=== PATIENT | female | born 1955 | race Caucasian/White ===

== ENCOUNTER → 2021-12-06 09:18 | Outpatient (CLI) | payer MEDICARE, SELFPAY ==
--- NOTE | 2021-12-06 09:22 | DI.MRI.S_ITS ---
PROCEDURE: MR LUMBAR SPINE WO CON INDICATIONS: Spinal stenosis, lumbar region TECHNIQUE: Noncontrast sagittal T1 spin echo and T2 fast echo, sagittal STIR, and T2 fast spin echo through the lumbar spine. In cases with scoliosis, additional coronal T2 fast spin echo may be performed. COMPARISON: [facility] [place], CR, XR LUMBAR SPINE WITH OBLIQUES PLUS FLEXION EXTENSION, 11/27/2021, 14:27. FINDINGS: Image quality: Excellent. Alignment and Curvature: There is normal bony alignment. Bone Marrow: Marrow is of normal overall signal. No acute vertebral body compression fractures. Spinal Cord: Conus medullaris terminates at the L1 level. Visualized cord demonstrates normal signal and size. Paraspinous Soft Tissues: No paravertebral masses. T12-L1: Normal appearance. L1-L2: Severe disc desiccation and height loss. Vacuum disc phenomenon. Severe facet and ligamentum flavum hypertrophy. Mild canal stenosis. Moderate bilateral foraminal stenosis. L2-L3: Severe disc desiccation and height loss. Broad-based disc bulge. Mild facet ligamentum flavum hypertrophy. No canal stenosis. Mild right and moderate left foraminal narrowing. L3-L4: Patient is status post left fixation and discectomy. There is narrowing of the bilateral lateral recesses. Moderate facet sclerosis. No canal stenosis. Moderate bilateral foraminal stenosis. L4-L5: Severe disc desiccation and height loss. Severe facet and ligamentum flavum hypertrophy. Epidural lipomatosis. There is a right paracentral disc extrusion which measures 1.8 x 0.9 x 1.3 cm. There is posterior displacement of the cord and severe canal stenosis. There is severe bilateral neural foraminal stenosis with flattening of the exiting nerve roots. There is a posterior focal high-intensity zone. L5-S1: Normal appearance. IMPRESSION: 1. Large right paracentral disc extrusion as above with resultant severe canal stenosis. 2. Severe bilateral foraminal stenosis at L4-5 with flattening of the exiting nerve roots. 3. Moderate bilateral L3-4 and L1-2 foraminal stenosis and moderate left L2-3 foraminal stenosis. 4. Posterior annular fibrosis tear at L4-5 Dictated by: Kaleigh Lopez M.D. on 12/08/2021 at 9:02 Approved by: Kaleigh Lopez M.D. on 12/08/2021 at 9:09
== END ==
PROVIDERS: Referring Provider Physician Assistant Medical; Visit Provider Physician Assistant Medical
DX: M48.061 Spinal stenosis, lumbar region without neurogenic claudication (principal); M51.26 Other intervertebral disc displacement, lumbar region; M51.36 Other intervertebral disc degeneration, lumbar region
CPT/HCPCS: 72148

== ENCOUNTER → 2022-01-02 10:39 | Outpatient (CLI) | payer MEDICARE, SELFPAY ==
--- NOTE | 2022-01-02 10:40 | DI.CT.S_ITS ---
PROCEDURE: CT LUMBAR SPINE WO CON INDICATIONS: Spinal stenosis, lumbar region TECHNIQUE: Noncontrast 0.8 mm thick sections acquired from the T12 level to the sacrum. Sagittal and coronal reformats were constructed. For radiation dose reduction, the following was used: automated exposure control. COMPARISON: [facility], MR, MR LUMBAR SPINE WO CON, 12/06/2021, 9:35. [facility] [place], CR, XR LUMBAR SPINE WITH OBLIQUES PLUS FLEXION EXTENSION, 11/27/2021, 14:27. FINDINGS: Image quality: There is artifact associated with the metallic hardware. Artifact from the metallic hardware is reduced by metal reconstruction algorithm. Bones: There is minimal retrolisthesis seen at L5-S1. No acute vertebral body compression fractures. No suspicious lytic or blastic bony lesions. No pars defects. T11-T12: At least moderate loss of disc height is seen. Vacuum disc phenomenon is seen at this level. Endplate irregularity and sclerosis can be seen. Partially bridging endplate osteophytes are seen on the right side. There is moderate right-sided and no significant left-sided neural foraminal narrowing. No significant central canal narrowing is seen. T12-L1: Normal. L1-L2: At least moderate loss of disc height is seen on the right side partially bridging endplate osteophytes are seen on the right. Vacuum disc phenomenon is seen at this level. Endplate irregularity and sclerosis can be seen. There is moderate to severe right-sided and minimal left-sided neural foraminal narrowing. Mild to moderate central canal narrowing is seen. L2-L3: Moderate to severe loss of disc height is seen. Vacuum disc phenomenon is seen at this level. Endplate irregularity and sclerosis can be seen. Partially bridging endplate osteophytes are seen, which are more prominent on the left side than on the right. Moderate generalized disc bulge is seen. There is moderate right-sided and at least moderate left-sided neural foraminal narrowing. Moderate central canal narrowing is seen. L3-L4: Postoperative changes are seen at this level, with placement fusion hardware on the left side. A disc spacer is seen. No findings of hardware failure or hardware loosening are seen. Moderate generalized disc bulge is seen. There is moderate right-sided and [id number] left-sided neural foraminal narrowing. No significant central canal narrowing is seen. L4-L5: At least moderate loss of disc height is seen. Vacuum disc phenomenon is seen at this level. Endplate irregularity and sclerosis can be seen. Moderate disc bulge is seen. Extensive extruded disc material can be seen posterior to this level which is worse on the right side and is seen both superior and inferior to the disc level itself. There is severe central canal narrowing. Moderate facet joint hypertrophy is seen. Moderate to severe bilateral neural foraminal narrowing can be seen. L5-S1: No significant abnormality is seen. Soft tissues: No retroperitoneal masses or hematomas. Visualized aorta is normal in caliber. IMPRESSION: Posterior to the L4-L5 level, there is again seen prominent extruded disc material, with severe central canal narrowing. Unremarkable L3-L4 postoperative hardware. Multiple levels of degenerative change are seen, which are overall better demonstrated on the recent prior MRI. Dictated by: Rick Ferrer M.D. on 01/02/2022 at 11:56 Approved by: Rick Ferrer M.D. on 01/02/2022 at 12:03
== END ==
PROVIDERS: Referring Provider Orthopaedic Surgery Orthopaedic Surgery of the Spine; Visit Provider Orthopaedic Surgery Orthopaedic Surgery of the Spine
DX: M48.061 Spinal stenosis, lumbar region without neurogenic claudication (principal); M51.26 Other intervertebral disc displacement, lumbar region; M47.816 Spondylosis without myelopathy or radiculopathy, lumbar region
CPT/HCPCS: 72131

== ENCOUNTER → 2022-01-06 09:39 | Outpatient (CLI) | payer MEDICARE, SELFPAY ==
[2022-01-06 10:59] LABS: Add Manual Diff / Slide Review NO; Basophils Absolute Auto 0 /uL (0-100); Basophils Percent Auto 0.6 % (0-2); Eosinophils Absolute Auto 100 /uL (0-450); Hematocrit 36.4 % (36-46); Hemoglobin 12.3 g/dL (12.0-16.0); Lymphocytes Absolute Auto 1400 /uL (1100-4500); Lymphocytes Percent Auto 21.3 % (25-40); Mean Corpuscular HGB Conc 33.7 % (30-36); Mean Corpuscular Volume 91.8 fL (80-100); Monocytes Absolute Auto 700 /uL (0-900); Monocytes Percent Auto 10.5 % (3-14); Neutrophils Absolute Auto 4200 /uL (1500-7000); Neutrophils Percent Auto 65.6 % (50-75); Platelet Count 294 X10^3/uL (150-400); Red Blood Cell Count 3.97 X10^6/uL (4.0-5.2); Red Cell Distribution Width 14.7 % (11.6-14.8); White Blood Cell Count 6.4 X10^3/uL (4.5-11.0)
[2022-01-06 11:12] LABS: BUN Creatinine Ratio 9.3 (6-22); Blood Urea Nitrogen 7 mg/dL (7-17); Carbon Dioxide 27 mmol/L (22-32); Chloride 104 mmol/L (98-107); Estimated Glomerular Filt Rate > 60 mL/min (>60); Glucose 82 mg/dL (80-110); HEMOLYSIS < 15 (0-50); Potassium 3.5 mmol/L (3.4-5.1); Sodium 138 mmol/L (137-145)
[2022-01-06 11:25] LABS: Hemoglobin A1C% w Est Avg Glu 5.2 % (4.0-6.0)
== END ==
PROVIDERS: Referring Provider Orthopaedic Surgery Orthopaedic Surgery of the Spine; Visit Provider Orthopaedic Surgery Orthopaedic Surgery of the Spine
DX: Z01.818 Encounter for other preprocedural examination (principal); R73.9 Hyperglycemia, unspecified; Z01.812 Encounter for preprocedural laboratory examination
CPT/HCPCS: 36415; 80048; 83036; 85025; 93005

== ENCOUNTER → 2022-01-22 10:08 | Outpatient (CLI) | payer MEDICARE, SELFPAY ==
[2022-01-22 11:27] LABS: COVID19 -Nasal RAPID Negative (Negative)
== END ==
PROVIDERS: PCP Physician Assistant Medical; Referring Provider Orthopaedic Surgery Orthopaedic Surgery of the Spine; Visit Provider Orthopaedic Surgery Orthopaedic Surgery of the Spine
DX: Z20.822 Contact with and (suspected) exposure to COVID-19 (principal); Z01.812 Encounter for preprocedural laboratory examination
CPT/HCPCS: 87635; C9803

== ENCOUNTER 2022-01-25 18:00 | Inpatient (IN) | payer MEDICARE, SELFPAY ==
[2022-01-15 13:54] VITALS: BMI 25.6
[2022-01-25] VITALS (14 sets, daily range): BP systolic 108–144; BP diastolic 58–85; PULSE 70–93; RESP 14–97; TEMP 36.2–36.8; O2SAT 16–100; BMI 25.6
--- NOTE | 2022-01-25 12:50 | PM.PREOP ---
Pre-operative Note COVID-19 COVID-19 status: Negative Result date/Date tested (Pos, Neg/Pending): 01/24/22 Criteria for continued procedure: Expected advancement of disease process, Possibility delay results in more complex future surgery or treatment, Increased loss of function, Continuing or worsening of significant or severe pain, Deterioration of the patient's condition or overall health and Delay expected to result in less-positive ultimate med/surg outcome Interval Note History & Physical reviewed/Exam performed by Physician: Yes Changes to H&P: No
[2022-01-25] MEDS: CEFAZOLIN 2 GM/100 ML PREMIX 100 ML IV ×2 (13:15→20:38)
--- NOTE | 2022-01-25 13:45 | SUR.OPER ---
Prone on spine table, head in foam head support, padded chest and pelvic supports, gel pad at knees, lower legs supported by pillows; nipples, genitalia and toes free of pressure, arms secured on foam padded arm boards at <90 degrees abduction. Tape over blanket at thigh secured to table. Gel pad between heels.
[2022-01-25] MEDS: LACTATED RINGERS 1,000 ML 42 ML IV (14:49)
[2022-01-25] MEDS: BUPIVACAINE 0.25% (PF) 60 ML, EPINEPHrine 0.3 MG INJ (15:50)
[2022-01-25] MEDS: BUPIVACAINE LIPOSOME 266 MG/20 ML VIAL INJ (15:50)
--- NOTE | 2022-01-25 15:55 | PM.OP.1 ---
Operative Date/Time/Diagnoses Date of procedure: 01/25/22 Time of procedure: 13:00 Pre-op diagnosis: 1. L4-5 spinal stenosis with neurogenic claudication 2. History of L3-4 fusion with instrumentation Post-op diagnosis: same Procedure & Clinicians Procedure: 1. L4-5 posterolateral and posterior interbody fusion 2. L4-5 posterior interbody cage placement 3. L3-4 revision laminectomy with exploration of fusion 4. L3-4, L4-5 posterior segmental instrumentation with pedicle screw placement 5. L3-4 posterolatearl fusion 6. Colquitt of bone marrow from iliac crest through a separate incision 7. Utilization of microsurgical technique and operating microscope 8. Utilization of robotic assisted navigation Same procedure as scheduled: Yes Indications: Patient has been having chronic back pain and worsening lumbar radiculopathy. Patient failed multiple conservative management with worsening pain weakness and numbness in her lower extremity. Patient has been having difficulty performing activity of daily living. After discussing risks benefits of treatment options, patient elected proceed with surgery. Surgeon: Riri Ulrich Hydraulic Spinner: Shannen Samayoa Click Yes if Unassisted: No Anesthesia Type: General Operative Notes Closure Type: primary Specimen(s): none sent Prosthetic devices, grafts, tissues, transplants, or devices: Globus CREO MIS screws, RIse cage Applied: catheter Estimated Blood Loss (mL): 50 Blood products transfused: none Procedure in detail: Patient was seen in the preoperative area. Risks and benefits of the surgery was discussed with the patient. Informed consent was obtained from the patient and placed in the chart. Surgical site was marked. Patient was taken to the operative room. General anesthesia was administered. Prophylactic antibiotic was given to the patient less than 30 min before the incision was made. Patient was placed into a prone position on the Han table. Patient's back was then prepped and draped in the sterile fashion. Time-out was performed at this time. After patient was prepped and draped, patient's PSIS was palpated and marked bilaterally. Small 1 cm incision was made over the PSIS for placement of the reference probes. Two trocar was placed into the PSIS 1 on each side. The reference probe was attached to the trocar of the reference apparatus. At this time the C-arm imaging was used to confirm AP and lateral of L3, L4-L5 vertebrae and merged the C-arm imaging using the [employer] robotic navigation system with the CT of the lumbar spine. After successful merging was completed and confirmed, skin marker was used to basia out the skin incision using the [employer] robotic arm. Bilateral incision was made at this time. Pre templated trajectory was used and guided using the [employer] robotic navigation system for bilateral L3 L4, L5 pedicle screw placement. This was done by using the robotic arm to guide the high-speed bur to make a cortical entry point. Next a drill was placed also using the robotic arm and guided using the navigation system drilling partially through bilateral L3, L4, L5 pedicles. Next L3, L4, L5 pedicle screws it was pre templated and measured was placed onto the power clamp truck driver and inserted into the pedicles bilaterally. After all 6 screws were placed C-arm imaging was taken of both AP and lateral to confirm the placement. Excellent placement of the screws were confirmed and a matched precisely with the pre planned screw placement using the navigation system. MARs retractor was inserted using [employer] guidence. Globus MARS retractors was placed inside the incision and docked onto the L3, L4 lamina. Using microsurgical technique and operating microscope, a L3, L4 laminectomy and L3-4, L4-5 facetectomy was performed using a Kerrison rongeur. Patient was found have severe lateral recess and neural foramen stenosis which was fully decompressed after the laminectomy facetectomy. More than 75% of the facets were removed during the process of decompression rendering L4-5 level grossly unstable and required a fusion procedure at the same time. The disc space at L4-5 was identified, and a total diskectomy was performed at L4-5 level. The endplates were decorticated using a rasp and shaver. The total diskectomy and decortication was performed at L4-5 level in order to to accomplish a L4-5 fusion. The local bone from the laminectomy and facetectomy was saved for local bone grafting. After the total diskectomy and decortication was completed, Trifecta bone graft material was combined with local bone that was harvested earlier. At this time, a separate skin is incision was made over the iliac crest. A Jamshidi needle was inserted into the iliac crest through a separate skin incision. 5 cc of bone marrow aspiration was obtained through the separate skin incision using a Jamshidi needle from the iliac crest. The bone marrow aspiration was combined with local bone and the Trifecta bone grafting material. The bone grafting material was placed into the L3-4, L4-5 interbody space along with expandable cages. One cage each was inserted into the L4-5 interbody space along with bone graft material. The cage was expanded to its maximum height using the torque limiting screwdriver. The disc preparation as well as the cage insertion were also performed under navigation guidance. After the cage was placed, AP and lateral C-arm imaging was taken to confirm placement of the cage and excellent position was confirmed. During the process of performing laminectomy at L3 level, the posterior lateral fusion mass was inspected. There was significant motion indicating pseudoarthrosis at L3-4 level. Globus MARS retractor was inserted and docked onto the L3-4, L4-5 posterolateral gutter on the left side. Using the power drill, posterior-lateral decortication was performed at L3-4, L4-5 level until bleeding cortical bone was identified. The remaining bone grafting material was placed into the L3-4, L4-5 posterior lateral gutter he order to accomplish posterolateral fusion at the L3-4, L4-5 level. At this time the tulips were attached to the L3, L4-L5 pedicle screw shanks. After measuring the length of the rods, they were inserted into the tulips of the pedicle screws and locked in place using locking caps and torque limiting screwdriver bilaterally. Total 5 caps and 2 titanium rods was used in order to complete the posterior instrumentation construct. Left L4 screw was not placed her planning due to patient's previously placed hardware in the way of the trajectory for the screw. After all the hardware was placed, and confirmed with AP and lateral C-arm imaging, the wound was then irrigated with sterile normal saline and packed with Ray-Teresa gauze for 3 min to accomplish hemostasis. After the gauze was removed the deep fascia was closed with #1 Vicryl suture. The subcutaneous layer was closed with 2-0 Vicryl. The skin was closed with skin alexandra. Patient tolerated the procedure well. There were no complications. Neuro monitoring system was used to monitor patient's neurologic status throughout entire procedure. There was no disturbance of the neural monitoring signals throughout the case. Complications: none Post-operative Condition: stable Disposition: PACU Plan for aftercare: Admit to inpatient hospital
--- NOTE | 2022-01-25 16:00 | DI.RAD.S_ITS ---
PROCEDURE: XR LUMBAR SPINE 2-3V INDICATIONS: L4-5 TLIF TECHNIQUE: Fluoroscopic images were obtained during an operative procedure and submitted for interpretation following the completion of the procedure. COMPARISON: [facility], CT, CT LUMBAR SPINE WO CON, 01/02/2022, 10:50. [facility], MR, MR LUMBAR SPINE WO CON, 12/06/2021, 9:35. FINDINGS: These fluoroscopic images were performed for intraoperative localization. On these images, 3 levels of pedicle screws can be seen at the L3, L4, and L5 levels. Left-sided fixation hardware is also seen at the L3-L4 level. Disc spacers are seen at L3-L4 and L4-L5. Please correlate with intraoperative findings. IMPRESSION: Normal intraoperative examination. Dictated by: Rick Ferrer M.D. on 01/25/2022 at 15:45 Approved by: Rick Ferrer M.D. on 01/25/2022 at 15:47
[2022-01-25] MEDS: HYDROMORPHONE 2 MG INJ IV ×4 (16:15→16:31)
[2022-01-25] MEDS: ACETAMINOPHEN IV 1,000 MG/100 ML VIAL 400 MG IV (16:24)
[2022-01-25] MEDS: OXYCODONE IR 5 MG TABLET 10 MG PO (16:32)
[2022-01-25] MEDS: hydrOXYzine 50 MG/ML INJ IM (16:37)
[2022-01-25] MEDS: diazePAM 10 MG/2 ML SYRINGE 5 MG IV (17:11)
[2022-01-25] MEDS: methocarbamoL 500 MG TABLET PO (18:39)
[2022-01-25] MEDS: HYDROMORPHONE 0.5 MG INJ IV ×2 (18:39→21:56)
[2022-01-25] MEDS: SODIUM CHLORIDE 0.9% 1,000 ML 100 ML IV (18:50)
--- NOTE | 2022-01-25 19:22 | PC.NURSE ---
Admit Note Patient arrived to room 228 from PACU via bed at 1820. Alert and oriented x3, reports pain 10/10. Medicated with robaxin and Dilaudid 0.5 mg IV per emar. Pt reported need to void, declined bedpan and BSC attempted. Log rolled to side of bed but requested to go back to bed just before dropping legs to floor. Able to participate in log rolling back to bed. Dressing to back C/D/I. CMS positive to BLEs. Purewick placed for patient void, effective and pt requested removal of purewick after void which was done. SpO2 95-98% on RA. On reassess pt reports pain a little better post dilaudid and robaxin. Oriented patient to room and to call light/bed/tv controls. Bed alarm on for safety, call light within reach. Daughter is at bedside (Tereza).
[2022-01-25] MEDS: HYDROMORPHONE 1 MG INJ IV (20:33)
[2022-01-25] MEDS: hydrOXYzine pamoate 25 MG CAPSULE PO (20:41)
[2022-01-25] MEDS: SENNOSIDES 8.6 MG TABLET 17.2 MG PO (20:44)
[2022-01-25] MEDS: ATORVASTATIN 20 MG TABLET PO (20:44)
[2022-01-25] MEDS: valACYclovir 500 MG TABLET PO (20:44)
[2022-01-25] MEDS: TRAZODONE 50 MG TABLET 150 MG PO (20:44)
[2022-01-25] MEDS: DOCUSATE 100 MG CAPSULE PO (20:45)
[2022-01-25] MEDS: GABAPENTIN 400 MG CAPSULE 800 MG PO (21:57)
[2022-01-25] MEDS: ZOLPIDEM 5 MG TABLET 10 MG PO (21:58)
[2022-01-26 00:40] VITALS: BP 107/63; PULSE 82; RESP 18; TEMP 37.1; O2SAT 96
[2022-01-26] MEDS: HYDROMORPHONE 1 MG INJ IV ×3 (01:08→23:22)
[2022-01-26] MEDS: hydrOXYzine pamoate 25 MG CAPSULE PO ×2 (02:10→16:38)
[2022-01-26] MEDS: OXYCODONE IR 5 MG TABLET 10 MG PO ×3 (02:10→21:15)
--- NOTE | 2022-01-26 03:37 | PC.NURSE ---
Shift Note: At 2130H, patient complaint of lower abdominal pain, bladder distended, bladder scanned with urine output 600mls, straight cath done and put out 800mls. Patient verbalized relief. At 2330H, patient complained again of bladder distention, scanned was done with UO 600mls, notified Dr. Gan regarding patient urinary retention, ordered to place cifuentes cath. Cifuentes cath was placed, urine freely flowing to urine bag with adequate UO - 800mls, patient stated relief. Will continue to monitor.
[2022-01-26] MEDS: HYDROMORPHONE 0.5 MG INJ IV ×4 (03:59→20:14)
[2022-01-26 04:00] VITALS: BP 119/61; PULSE 74; RESP 18; TEMP 36.8; O2SAT 95
[2022-01-26] MEDS: SODIUM CHLORIDE 0.9% 1,000 ML 100 ML IV (04:05)
[2022-01-26] MEDS: PANTOPRAZOLE DR 40 MG TABLET PO (05:08)
[2022-01-26] MEDS: CEFAZOLIN 2 GM/100 ML PREMIX 100 ML IV (05:09)
--- NOTE | 2022-01-26 05:21 | PC.NURSE ---
Shift note. Care of patient from [id number]. At beginning of shift patient AAOX4, grimacing, rates back pain 10/10 throbbing and aching, current pain medications dosages not able to provide good pain management. Called Dr. Pruett, new orders to increase Dilaudid to 1mg Q1hr for pain control. Improved pain control with Dilaudid 1mg IV. Patient able to use purewick to void, unable to get OOB due to pain.
--- NOTE | 2022-01-26 07:58 | P.PN_ITS ---
Subjective Subjective Date Patient Seen: 01/26/22 Time Patient Seen: 07:58 Interval history: Patient is complaining of severe low back pain. She is tearful on exam. She has not worked with physical therapy or occupational therapy yet. She needed the Rubio catheter reinserted due to urinary retention. She has a history of fibromyalgia. Her daughter is at bedside. Exam Vital Signs (past 8 hours): - 01/26/22 00:40 01/26/22 04:00 Temperature 98.8 F 98.2 F Pulse Rate 82 74 Respiratory Rate 18 18 Blood Pressure 107/63 119/61 Pulse Oximetry 96 95 Oxygen Flow Rate 0 2 Oxygen Delivery Method Nasal Cannula Oxygen Flow Rate 2 Narrative Exam Narrative: 66-year-old female, resting in bed, mild to moderate distress due to pain. Dressing demonstrates serosanguineous drainage on the right lateral incision, no surrounding erythema or induration. Bilateral lower extremity: Motor functions are grossly intact, sensation is grossly intact to light touch, calves are soft and nontender to palpation. She cries out in pain when we try to logroll her. Objective Labs Labs: Laboratory Results - last 24 hr 01/25/22 18:17 Nasal Screen MRSA (PCR) Negative for mrsa [facility] Medical History Anxiety Colitis, nonspecific Depression Easy bruisability Fibromyalgia History of revision of total replacement of left knee joint (07/2008) History of revision of total replacement of right knee joint (~2005) HLD (hyperlipidemia) Infection of mandible (2019) Loose left total knee arthroplasty (2003) MRSA (methicillin resistant Staphylococcus aureus) PTSD (post-traumatic stress disorder) Sciatica Spinal stenosis Surgical History History of arthroplasty of right knee (~2003) History of ear surgery History of lumbar spinal fusion (05/2019) History of nasal surgery Hx of arthroscopy of right knee Hx of laminectomy (~2017) Hx of repair of right rotator cuff Social History household members: none Smoking Status: Former smoker alcohol intake: former Assessment & Plan Post-op Postoperative Procedures: Procedures Operation Date: 01/25/22 12:45 Actual Procedure Side Surgeon p L4-5 TLIF, L3-5 PSF w. instrumentation-Robot Riri Ulrich MD Postoperative day: 1 Postoperative status: marginal pain control Postoperative status narrative: -marginal pain control s/p L4-5 TLIF, L3-5 PSF with instrumentation -history of fibromyalgia -urinary retention Postoperative plan narrative: -mobilize with PT/OT. No bending, lifting, twisting x6 weeks -added Benadryl for itching -change p.o. pain medications to oral Dilaudid 2-4 mg as needed -DC home in 1-2 days Quality VTE Deep Vein Thrombosis/Pulmonary Embolism Present on Admission: No
[2022-01-26 08:26] VITALS: BP 121/58; PULSE 69; RESP 16; TEMP 36.9; O2SAT 98
[2022-01-26] MEDS: HYDROMORPHONE 4 MG TABLET PO ×3 (08:26→16:34)
[2022-01-26] MEDS: GABAPENTIN 400 MG CAPSULE PO ×2 (08:31→16:35)
[2022-01-26] MEDS: ESCITALOPRAM 10 MG TABLET 20 MG PO (08:31)
[2022-01-26] MEDS: DOCUSATE 100 MG CAPSULE PO ×2 (08:32→21:05)
[2022-01-26] MEDS: buPROPion XL 150 MG TAB PO (08:32)
[2022-01-26] MEDS: valACYclovir 500 MG TABLET PO ×2 (08:33→21:04)
[2022-01-26] MEDS: BUDESONIDE 3 MG CAP 9 MG PO (08:33)
[2022-01-26] MEDS: diphenhydrAMINE 25 MG TABLET PO (08:39)
--- NOTE | 2022-01-26 11:30 | PT.IIE ---
Current Diagnoses Spinal stenosis, lumbar region with neurogenic claudication (01/25/22) Arthrodesis status (01/25/22) Surgery Performed Operation Date: 01/25/22 12:45 Actual Procedures p L4-5 TLIF, L3-5 PSF w. instrumentation-Robot - Riri Ulrich MD Surgical History (Last Reviewed 01/26/22 @ 08:00 by Emilia Wilson PA-C) History of arthroplasty of right knee (~2003) History of ear surgery History of lumbar spinal fusion (05/2019) History of nasal surgery Hx of arthroscopy of right knee Hx of laminectomy (~2017) Hx of repair of right rotator cuff Medical History (Last Reviewed 01/26/22 @ 08:00 by Emilia Wilson PA-C) Anxiety Colitis, nonspecific Depression Easy bruisability Fibromyalgia History of revision of total replacement of left knee joint (07/2008) History of revision of total replacement of right knee joint (~2005) HLD (hyperlipidemia) Infection of mandible (2019) Loose left total knee arthroplasty (2003) MRSA (methicillin resistant Staphylococcus aureus) PTSD (post-traumatic stress disorder) Sciatica Spinal stenosis Physical Therapy Inpatient Evaluation/Re-Eval M1 PT/OT-IP Prior Functional Status Start: 01/26/22 12:52 Freq: NEEDED Status: Active Protocol: Document 01/26/22 11:30 AB (Rec: 01/26/22 13:04 [email or web address]) Medical Review Prior Functional Status Medical History Reviewed Yes Communication able to make needs known Mobility and Gait pt stated that she is independent with all mobilities and ambulation without AD Social History Household Members none Living Arrangements Apartment/Condo Number of Floors (Floors) One Floor Number of Stairs To Enter/Railing? 3 steps with L rail + 1 platform step to enter the house Home Environment Standard Height Toilet,Tub/ Shower Doors Home Equipment Front Wheel Walker Additional Social History Comment pt plans to go to her daughter 's house for ~ 1 wk and daughter will assist pt; above home set up is regarding pt's daughter's house M2 PT-IP Current Condition Start: 01/26/22 12:52 Freq: NEEDED Status: Active Protocol: Document 01/26/22 11:30 AB (Rec: 01/26/22 13:04 [email or web address]) Physical Therapy Current Condition Current Condition Evaluation Date 01/26/22 Treatment Diagnosis s/p L4-5 fusion; difficulty in walking Onset Date 01/25/22 M3 PT-IP Subjective Start: 01/26/22 12:52 Freq: NEEDED Status: Active Protocol: Document 01/26/22 11:30 AB (Rec: 01/26/22 13:04 AB [email or web address]) Subjective Physical Therapy Visit Type Type Initial Evaluation Visit Start Time 11:30 Visit Stop Time 12:18 Total Visit Minutes 48 Number of SPEEDER WORKER Visits 0 Physical Therapy Visit Comments Patient Comments needs motivation to participat M4 PT-IP Mobility and Gait Start: 01/26/22 12:52 Freq: NEEDED Status: Active Protocol: Document 01/26/22 11:30 AB (Rec: 01/26/22 13:04 AB [email or web address]) PT-Bed Mobility Assessment Rolling Type of Rolling Log Rolling Level of Assist Maximal Assistance Sit to Supine Sit to Supine Maximum Assistance,2 Person Assistance,Head of Bed Elevated,Bedrails Scooting Scooting to Edge of Bed Dependent PT-Transfer Assessment Sit to and From Stand Sit to and from Stand Maximum Assistance,1 Person Assistance,2 Person Assistance ,Use of Upper Extremities Equipment Transfer Assistive Device Gait Belt,Platform Walker Orthotic/Prosthetic Devices or Brace: No Transfers Transfer Destination Bed Transfer Technique Stand Step Pivot Transfer Ability Level of Assist Standby Assistance,1 Person Assistance,Use of Upper Extremities Comments Mobility Comments reviewed back precautions with pt and pt requires cues. pt completed sit to stand from chair max x 2 and max cues x 3 attempts. ambulated ~ 2 ft using FWW max A x 1-2 and max cues and pt wants to go back bed. educated pt on importance to sitting up but still wants to go back to bed. took steps to get to bed using fWW max A and cues. completed bed mobility sit to supine max A x 2 and max cues. positioned pt in bed. call light and table placed within reach. Gait Assessment Gait Able to Maintain Weight Bearing Status Yes During Gait Assistive Devices Assistive Device Gait Belt,Front Wheeled Walker Orthotic/Prosthetic Devices or Brace: No Gait Deviations General Gait Pattern Antalgic,Decreased Stride Length,Decreased Feet Clearance Factors Limiting Gait Function Factors Limiting Gait Function Decreased Activity Tolerance, Decreased Strength,Difficulty Following Directions,Limited Range of Motion,Pain,Poor Balance,Poor Safety Awareness Comments Gait Comments able to take steps during transfers using FWW PT-Balance Assessment Sitting Balance and Reactions Static Sitting Balance Ability Good Dynamic Sitting Balance Ability Fair Standing Balance and Reactions Static Standing Balance Ability Poor Dynamic Standing Balance Ability Poor Device Used FWW M5 PT-IP Objective Assessments Start: 01/26/22 12:52 Freq: NEEDED Status: Active Protocol: Document 01/26/22 11:30 AB (Rec: 01/26/22 13:04 AB [email or web address]) Orientation Orientation/Cognition Level of Alertness Alert Orientation Name Safety Awareness Decreased Safety Awareness Memory Description Short Term Impaired,Snf Impaired Gross Range of Motion Lower Extremity ROM Assessment Within Functional Limits Strength Lower Extremity Strength Assessment Bilaterally Impaired Comments Strength Comments RLE: 3-/5 LLE: 3+/5 Coordination Assessment Gross Coordination Gross Coordination WNL Sensation Assessment Sensation Gross Sensation WNL Muscle Tone Muscle Tone WNL Yes M6 PT-IP Treatment Start: 01/26/22 12:52 Freq: NEEDED Status: Active Protocol: Document 01/26/22 11:30 AB (Rec: 01/26/22 13:04 AB [email or web address]) Physical Therapy Treatment Education Education Provided Precautions,Weight Bearing Status,Post-Op Packet,Safety M7 PT-IP Assessment and Plan Start: 01/26/22 12:52 Freq: NEEDED Status: Active Protocol: Document 01/26/22 11:30 AB (Rec: 01/26/22 13:04 AB [email or web address]) PT Summary Assessment and Plan Potential Rehabilitation Potential Good Status of Condition at Evaluation Evolving Summary Impairments Pain,ROM,Strength,Balance, Coordination,Sensation,Tone, Cognition,Bed Mobility, Transfers,Gait,Activity Tolerance Assessment Summary pt requiring max A x 2 and max cue with mobility using fWWand with c/o increase LBP affecting mobility. At this time, pt will require SNF rehab to improve strength and mobiltiy. Goals Bed Mobility Goal Minimal Assistance Transfer Goal Minimal Assistance,Front Wheeled Walker Gait Goal Minimal Assistance,Front Wheel Walker Gait Distance 50 Other Goals improve bed mobility, transfers and ambultion using fWW 30 ft SBA up/down 3 steps L rail ascending + 1 platform step using FWW SBA Days to Meet Goals 10 Frequency of Treatment Frequency Of Treatment Twice a Day Treatment Plan Physical Therapy Treatment Plan Bed Mobility Training,Transfer Training,Gait Training, Therapeutic Exercise,Balance Retraining,Post Op Education, Discharge Planning,Hot or Cold Pack,Neuromuscular Re-ed, Coordination Retraining,Manual Therapy Precautions Lumbar Precautions Log Roll,No Twisting,Limit Bending,Lifting Restriction of 10 lbs,Gait Belt above Incisional Area Recommendations To Nursing Amount of Assist Needed 2 Person Assist Discharge Recommendations PT Discharge Recommendations SNF Rehab Transportation Needs at Discharge Wheelchair/Cabulance
--- NOTE | 2022-01-26 11:45 | OT.IP.EVAL ---
Current Diagnoses Spinal stenosis, lumbar region with neurogenic claudication (01/25/22) Arthrodesis status (01/25/22) Surgery Performed Operation Date: 01/25/22 12:45 Actual Procedures p L4-5 TLIF, L3-5 PSF w. instrumentation-Vikki - Riri Ulrich MD Past Medical History (Last Reviewed 01/26/22 @ 08:00 by Emilia Wilson PA-C) Anxiety Colitis, nonspecific Depression Easy bruisability Fibromyalgia History of revision of total replacement of left knee joint (07/2008) History of revision of total replacement of right knee joint (~2005) HLD (hyperlipidemia) Infection of mandible (2019) Loose left total knee arthroplasty (2003) MRSA (methicillin resistant Staphylococcus aureus) PTSD (post-traumatic stress disorder) Sciatica Spinal stenosis Surgical History (Last Reviewed 01/26/22 @ 08:00 by Emilia Wilson PA-C) History of arthroplasty of right knee (~2003) History of ear surgery History of lumbar spinal fusion (05/2019) History of nasal surgery Hx of arthroscopy of right knee Hx of laminectomy (~2017) Hx of repair of right rotator cuff Occupational Therapy Inpatient Evaluation/Re-Eval M1 PT/OT-IP Prior Functional Status Start: 01/26/22 12:52 Freq: NEEDED Status: Active Protocol: Document 01/26/22 11:30 AB (Rec: 01/26/22 13:04 AB [id number]) Medical Review Prior Functional Status Medical History Reviewed Yes Communication able to make needs known Mobility and Gait pt stated that she is independent with all mobilities and ambulation without AD Social History Household Members none Living Arrangements Apartment/Condo Number of Floors (Floors) One Floor Number of Stairs To Enter/Railing? 3 steps with L rail + 1 platform step to enter the house Home Environment Standard Height Toilet,Tub/ Shower Doors Home Equipment Front Wheel Walker Additional Social History Comment pt plans to go to her daughter 's house for ~ 1 wk and daughter will assist pt above home set up is regarding pt's daughter's house M2 OT-IP Current Condition Start: 01/26/22 13:34 Freq: Status: Active Protocol: Document 01/26/22 10:40 [facility] (Rec: 01/26/22 13:58 [facility] [id number]) Occupational Therapy Current Condition Current Condition Evaluation Date 01/26/22 Treatment Diagnosis S/p L4-5 TLIF L3-5 PSF Diagnosis Onset Date 01/25/22 Post Operative Precautions Lumbar Precautions Log Roll,No Twisting,Limit Bending,Lifting Restriction of 10 lbs,Gait Belt above Incisional Area M3 OT- IP Subjective and Pain Start: 01/26/22 13:34 Freq: Status: Active Protocol: Document 01/26/22 10:40 [facility] (Rec: 01/26/22 13:58 [facility] [id number]) OT- Subjective Occupational Therapy Visit Type Type Initial Evaluation Visit Start Time 10:40 Visit Stop Time 11:45 Total Visit Minutes 65 Occupational Therapy Visit Comments Patient Comments Pt needing encouragement and agreed to get up. Pt's daughter in the room for OT eval. Patient/Caregiver Goals To go home. OT Pain Assessment Pain When Pain Assessed At Rest Pain Present Pain Present Pain Reported Location Lower Back Intensity 7 Scale Used Numeric (0 - 10) M4 OT- IP ADL's Start: 01/26/22 13:34 Freq: Status: Active Protocol: Document 01/26/22 10:40 [facility] (Rec: 01/26/22 13:58 [facility] [id number]) OT ADL-Grooming General Evaluation Grooming Ability Independent Areas Needing Assistance Retrieving/Set-up of Grooming Items OT ADL-Oral Care General Eval Oral Care Ability Independent Areas of Assistance Retrieving/Set-Up of Items Comments Oral Care Comments While seated. Educated when able to stand at the sink, best to spit into a cup or hinge at her hips to spit into the sink in order to best follow her back precautions. OT ADL-Dressing General Eval Lower Body Dressing Ability Maximum Assistance Areas Needing Assistance Socks Comments OT Dressing Comments Able to go over LB dressing equipment of university tutor and sock aid to increased ease for dressing needs. OT ADL-Toileting General Evaluation Toileting Ability Total Assistance Comments OT Toileting Comments Rubio in place. Educated use of pad/brief at night , wet ones, and possibly toilet paper aid to increase ease for her hygiene needs. OT ADL-Bathing Comments OT Bathing Comments SPonge bath more appropriate at this time. Pt will also benefit from a shower chair versus tub bench at home. M5 OT- IP IADL's Start: 01/26/22 13:34 Freq: Status: Active Protocol: Document 01/26/22 10:40 [facility] (Rec: 01/26/22 13:58 [facility] [id number]) OT-Instrumental Activities of Daily Living Home Safety Awareness Awareness of Need for Assistance at Home Good Awareness Home Safety Comments Pt a little anxious and needing cues to follow, increased time to process information and follow commands. At this time pt would benefit form assist with all needs. Medication Management Medication Management Comments Prior pt able to do . Money Management Money Management Comments Prior pt had no issues. Meal Preparation Meal Preparation Comments Pt will need assist. Manager Exchange Manager Exchange Comments Pt will need assist. M6 OT- IP Functional Cognition Start: 01/26/22 13:34 Freq: Status: Active Protocol: Document 01/26/22 10:40 [facility] (Rec: 01/26/22 13:58 [facility] [id number]) Cognitive Factors Limiting Selfcare Function Cognitive Ability Level of Alertness Alert Patient Orientation Name,Place,Situation Attention Span Ability Capable of Focused Attention, Capable of Sustained Attention Ability to Follow Commands Able to Follow One Step Commands with Increased Time, Able to Follow One Step Commands with Repetition Safety Awareness Decreased Recall of Precautions Cognitive Comments Cognitive Assessment Comments Pt a little anxious and needing cues to take her time, breath, and needing step by step simple steps to follow and reassurance that she is okay. OT- Vision and Hearing OT- Hearing Assessment OT- Hearing Assessment WFL OT- Vision Assessment Visual Acuity Glasses All The Time M7 OT- IP Mobility and Balance Start: 01/26/22 13:34 Freq: Status: Active Protocol: Document 01/26/22 10:40 [facility] (Rec: 01/26/22 13:58 [facility] [id number]) OT- Bed Mobility Assessment Rolling Type of Rolling Roll to Left Level of Assistance Maximum Assistance,1 Person Assistance,Bedrails Supine to Sit Supine to Sit Assist Moderate Assistance,Maximum Assistance,1 Person Assistance Scooting Scooting to Edge of Bed Moderate Assistance,1 Person Assistance OT-Transfer Assessment Sit to and From Stand Sit to and from Stand Maximum Assistance,1 Person Assistance Transfers Transfer Ability Moderate Assistance,1 Person Assistance Technique Transfer Destination Bed,Chair Transfer Technique Stand Step Pivot Devices Transfer Assistive Devices Gait Belt,Front Wheeled Walker Comments Mobility Comments BP 115/68 supine, 116/69 while seated. Pt initially assist with green pad to roll and then pt able to roll with use of bedrail with increased time and sidelying to supine MOD/ MAXA with slow pace as pt just wanting to more slowly. MODA to help scoot each hip to the edge of the bed. MAX AX 1 to stand to FWW and able to transfer with MODA x1 to guide pt and help steady her balance for the transfer to the recliner. At this time due to pt's anxiously, best to have 2 person assist for pt's reassurance. OT- Balance Assessment Sitting Balance and Reactions Static Sitting Balance Ability Good Dynamic Sitting Balance Ability Fair Standing Balance and Reactions Static Standing Balance Ability Poor Dynamic Standing Balance Ability Poor M8 OT- IP Objective Assessments Start: 01/26/22 13:34 Freq: Status: Active Protocol: Document 01/26/22 10:40 [facility] (Rec: 01/26/22 13:58 [facility] [id number]) OT-Muscle Tone Assessment Muscle Tone WNL Yes M9 OT- IP Assessment and Plan Start: 01/26/22 13:34 Freq: Status: Active Protocol: Document 01/26/22 10:40 [facility] (Rec: 01/26/22 13:58 [facility] [id number]) OT Summary Assessment and Plan Potential Rehabilitation Potential Good Analytic Complexity at Evaluation Moderate Summary OT Impairments Pain,Balance,Functional Cognition,Functional Mobility, Self-Feeding,Grooming,Dressing ,Toileting,Bathing,Toilet Transfers,Shower Transfers, Activity Tolerance Progress Towards Goals Slow Progress due to Pain,Slow Progress due to Medical Issues,Slow Progress due to Activity Tolerance,Slow Progress due to Cognition Assessment Summary Pt MOD complexity and main barriers are steps, pain, now needing extensive assist for all ADl and mobility needs. pt needing lots of reassurance and concrete simple cue to follow. Pt looking to possibly go home to her daughter's house pending caregiver training and progress, however at this time would be best to go to skilled rehab. Goals Grooming Goal Independent Dressing Goal Independent Toileting Goal Independent Bathing Goal Independent Toilet Transfer Goal Independent Shower Transfer Goal Independent Patient/Caregiver Education Goal Demonstrate Post-Op Precautions,Caregiver Independent Assisting Patient Days to Meet Goals 15 Frequency of Treatment Frequency Of Treatment Once a Day Treatment Plan OT Treatment Plan ADL Training,Functional Cognition Training,Functional Mobility,Patient/Family Education,Discharge Planning Other Treatment Recommendations and Next Transfer [place] [facility] [place] 1 Treatment Focus with FWW, caregiver training if appropriate Discharge Recommendations OT Discharge Recommendations SNF Rehab,Home vs SNF Other Discharge Recommendations pending progress, caregiver training, and pain control possibly home with 24/7 assist and home health, however current suggest SNF Transportation Needs at Discharge Wheelchair/Cabulance
--- NOTE | 2022-01-26 12:08 | CM.DANOTE ---
Addendum entered by Susan Sandhu R.N. 01/26/22 15:56: Checked back in with patient and daughter. She is hopeful for home with home health. She will work more with therapy tomorrow. They do have the list of care home facilities for back up as well, but no choices were made. Addendum entered by Susan Sandhu R.N. 01/26/22 13:02: Met with patient, daughter, Tereza, was in the room. O.T. indicated, may need skilled as a back up plan. Brought in Ipad with reviews from facilities. Gave Medicare Choice List, and put star ratings next to the facilities for patient and daughter to review. She hopes to be able to go home with home health, but will also look at skilled facilities for back up plans. Encouraged her and daughter to discuss and pick three facilities. Original Note: DCP: Case received, EMR reviewed and met with patient. Introduced self and role. Was able to obtain information regarding patient's baseline activity status prior to her surgery, as well as her current living situation. DCP assessment completed with information currently available. Patient is a 66 year old female who admitted yesterday morning to the care of the orthopedic team. PCP: Dr. Lemus (in [facility]). Payer: confirmed: Medicare. Patient came to the hospital via private vehicle secondary to having a surgical procedure. Patient had L4-5 posterolateral and oil boiler interbody fusion. Patient has history of spinal stenosis. Patient also has history of fibromyalgia, and she has a cifuentes secondary to having some urinary retention. Met briefly with patient in her room. She was laying on her back, having some discomfort. She stated, she did not know that this could be that painful. Confirmed with patient that she resides alone in [place]. She indicated, she would be temporarily staying with her daughter, as she has 3 flights of stairs to get to her apartment. At her baseline, she drives, and does not use any DME supplies. She is from [facility], has been here for about a year, her primary care physician is in [facility]. P: DCP to follow closely. She has not yet worked with therapy, and has been in pain. Will see how she does. Should she need care home, could be an option, and can go over Medicare Choice List, and she would need to be here for three midnights. Susan Sandhu RN/Shopper Marketing Manager Discharge Planning/Care Management CM Discharge Assessment Start: 01/26/22 12:05 Freq: Status: Active Protocol: Document 01/26/22 12:05 (Rec: 01/26/22 12:07 [id number]) Discharge Planning Assessment Assigned Supervisor Pleating Susan Sandhu RN/Shopper Marketing Manager Advance Directives? No History Provided By Patient,Medical Record Prior Living Arrangements Apartment/Condo Household Members none Type of transporation used prior to Drives own vehicle admit Independent with ADL's Yes Is patient alert and oriented? Yes Caregiver for Another No Comment Will see how patient does with P.T. Discharge Plan Home Whiteboard Updated in Patient Room with Yes name and ext. # of Supervisor Pleating Review Status In Process Next Review Type Continued Stay Review Pre-Anesthesia Assessment Start: 01/15/22 13:54 Freq: Status: Complete Protocol: Document 01/15/22 13:54 CAB (Rec: 01/15/22 15:04 [facility] [id number]) Pre-Anesthesia Assessment Preferred Name Emily Patient Information Reviewed Via Phone Assessment Assessment Completed With Patient Diagnostic Results BMP/CMP,CBC,EKG Comment Labs/ECG @ [facility] 01/06/22, COVID screen @ 01/22/22 Primary Care Provider Rosana Seen Specialist in Last 12 Months Yes Specialist Seen Orthopedist Primary Language Estonian Millinery Copyist Required No Height 5 ft 5 in Weight 154 lb Body Mass Index (BMI) 25.6 Hearing Ability Normal Visual Assist Glasses Dentition Type Teeth, Natural Present,Teeth, Missing Barriers to Learning None Other Aids Yes: Permanent lower teeth retainer Hx Anesthesia Reactions No Hx Family Anesthesia Reaction No Hx Malignant Hyperthermia No Hx Blood Transfusions Yes: x 2 during multiple knee surgeries Hx Blood Transfusion Reaction No Anesthesia Review Requested No alcohol intake current Alcohol Intake Frequency Other: Currently not in a month r/t pain Smoking Status Former smoker how long ago did patient quit smoking Quit approx 1 year ago Substance Use Type marijuana Comment CBD oil, advised not to smioke marijuana 24 hours prior Pain Present Pain Reported Musculoskeletal Symptoms Abnormal Gait,Back Pain, Difficulty Walking,Limited Range of Motion,Numbness, Radiating Pain into Limb, Tingling History of Falling (Recent or History of Yes ) Patient is completely paralyzed or No completely immobile Mental Status Oriented to own ability Is patient on oxygen? No Does patient have ESPINOZA/SOB No Hx Sleep Apnea No Currently Taking a Beta Sherrie No Can You Climb a Flight of Stairs Without No SOB Hx Chest Pain No Hx SOB No Hx Syncope or Dizziness No Anti-Coagulant Therapy No Has a Sporting Goods Sales Manager No Cardiac Testing No Hx Pacemaker/ICD No Pacemaker Rep Required? No Cardiac Clearance Received Not Applicable Diet Type At Home Regular dysphagia No Gastrointestinal Symptoms Reflux Urinary Catheter Present No Hx Urinary Self Catheterization No Diabetes No Patient No Lactating No Hx Drug Resistant Organism Yes: MRSA '09 Presence of External or Internal Medical Yes: Knee, right shoulder, Devices lumbar, lower teeth permanent retainer Have you had any close contact with No someone diagnosed with COVID-19? Received a COVID vaccine? Yes Received all doses? Yes Marital Status Single Lives With none Prior Living Arrangements Apartment/Condo Number of Stairs To Enter/Railing? Lives on 3rd floor apartment Support System Child/Children Does the Patient Have Assistance After Yes: Daughter will assist with Surgery care at [place] Patient Discharge Plan Description Other Comment Pt plans to go to daughter's home at [place] Additional comment Pt advised 1-2 night length of stay per surgeon Feels Safe in Current Environment Yes Been Physically Hurt or Threatened By a No Person in Current Environment Do you have thoughts of harming yourself None or others? Are you currently considering suicide? No Do you have a plan to hurt yourself or No Plan others? Do You Have Any Spiritual Beliefs That No May Affect Your HC Choices? Do You Have Any Cultural Practices That No May Affect Your HC Choices? Comment Worship Who Can We Speak to About Patient's Care Family, friends Identifying Code for Release of Patient Declines to issue Information Health Care Proxy/Next of Kin Tereza (daughter) Health Care Proxy Emergency Contact Name Tereza (daughter) Emergency Contact Advance Directives? No Power of Certified Adaptive Physical Educator No PAC Instructions Durable medical equipment, Medications to take/avoid, Nasal antibiotic,No ETOH/ petroleum product on skin DOS, NPO,Post-op transportation,Pre -surgical wash,Sensory aids, Sturdy shoes/comfortable clothes,Do not bring valuables and remove jewelry
[2022-01-26 12:34] VITALS: BP 118/62; PULSE 71; RESP 18; TEMP 37.1; O2SAT 97
--- NOTE | 2022-01-26 13:43 | CM.DPNOTE ---
Faxed referral to [facility], [facility] & Lashawn Huddleston. Ivy Mendoza CM assist.
[2022-01-26 15:41] VITALS: BP 118/64; PULSE 71; RESP 16; TEMP 37; O2SAT 96
--- NOTE | 2022-01-26 15:48 | PT.IPTN ---
Current Diagnoses Spinal stenosis, lumbar region with neurogenic claudication (01/25/22) Arthrodesis status (01/25/22) Surgery Performed Operation Date: 01/25/22 12:45 Actual Procedures p L4-5 TLIF, L3-5 PSF w. instrumentation-Robot - Riri Ulrich MD Physical Therapy Treatment Note M2 PT-IP Current Condition Start: 01/26/22 12:52 Freq: NEEDED Status: Active Protocol: Document 01/26/22 11:30 AB (Rec: 01/26/22 13:04 AB [id number]) Physical Therapy Current Condition Current Condition Evaluation Date 01/26/22 Treatment Diagnosis s/p L4-5 fusion; difficulty in walking Onset Date 01/25/22 M3 PT-IP Subjective Start: 01/26/22 12:52 Freq: NEEDED Status: Active Protocol: Document 01/26/22 15:30 LJ (Rec: 01/26/22 15:48 LJ [id number]) Subjective Physical Therapy Visit Type Type Treatment Note Visit Start Time 03:00 Visit Stop Time 03:24 Total Visit Minutes 24 Notes dtr in room Number of WHEEL INSTALLER Visits 1 Physical Therapy Visit Comments Patient Comments needs motivation to participat M4 PT-IP Mobility and Gait Start: 01/26/22 12:52 Freq: NEEDED Status: Active Protocol: Document 01/26/22 15:30 LJ (Rec: 01/26/22 15:48 LJ [id number]) PT-Bed Mobility Assessment Rolling Type of Rolling Log Rolling,Roll to Left Level of Assist Moderate Assistance,1 Person Assistance Supine to Sit Supine to Sit Moderate Assistance,1 Person Assistance Sit to Supine Sit to Supine Moderate Assistance,1 Person Assistance,Bedrails Scooting Scooting to Edge of Bed Moderate Assistance PT-Transfer Assessment Comments Mobility Comments reviewed precautions and discussed importance of abdominal bracing and breathing prior to movement. Pt completed a logroll with ModA and encouragement to breathe, brace, and move fluidly. Pt sat on the side of the bed for several mnutes talking about granddaughter then requested to lay down. She did some deep breaths and readied herself to begin the movement to get onto her side . She needed ModA to transition from sitting to getting onto her elbow prior to lifting her legs onto the bed. ModA with LEs to lift onto bed and position comfortably. Used sheet x2 to shift hips into position. Pt was left with all needs within reach and dtr in room. Gait Assessment Comments Gait Comments pt refused to attempt gait or standing beside the bed. M5 PT-IP Objective Assessments Start: 01/26/22 12:52 Freq: NEEDED Status: Active Protocol: Document 01/26/22 11:30 AB (Rec: 01/26/22 13:04 AB [id number]) Orientation Orientation/Cognition Level of Alertness Alert Orientation Name Safety Awareness Decreased Safety Awareness Memory Description Short Term Impaired,Skilled Nursing Impaired Gross Range of Motion Lower Extremity ROM Assessment Within Functional Limits Strength Lower Extremity Strength Assessment Bilaterally Impaired Comments Strength Comments RLE: 3-/5 LLE: 3+/5 Coordination Assessment Gross Coordination Gross Coordination WNL Sensation Assessment Sensation Gross Sensation WNL Muscle Tone Muscle Tone WNL Yes M6 PT-IP Treatment Start: 01/26/22 12:52 Freq: NEEDED Status: Active Protocol: Document 01/26/22 15:30 LJ (Rec: 01/26/22 15:48 LJ [id number]) Physical Therapy Treatment Education Education Provided Precautions,Weight Bearing Status,Post-Op Packet,Safety M7 PT-IP Assessment and Plan Start: 01/26/22 12:52 Freq: NEEDED Status: Active Protocol: Document 01/26/22 15:30 LJ (Rec: 01/26/22 15:48 LJ [id number]) PT Summary Assessment and Plan Potential Rehabilitation Potential Good Status of Condition at Evaluation Evolving Summary Impairments Pain,ROM,Strength,Balance, Coordination,Sensation,Tone, Cognition,Bed Mobility, Transfers,Gait,Activity Tolerance Assessment Summary Pt required ModA x1 with lots of encouragement and reminders to breathe and brace for movement. Her form with logroll ws very good and she was able to accomplish it with less assistance. For next treatment allow her to do as much as she can on her own with 1 person assist but have 2nd person standby for transfers and ambulation. Pt is highly motivated to avoid going to SNF however, at this point she will need it to improve strength and mobility. Goals Bed Mobility Goal Minimal Assistance Transfer Goal Minimal Assistance,Front Wheeled Walker Gait Goal Minimal Assistance,Front Wheel Walker Gait Distance 50 Other Goals improve bed mobility, transfers and ambultion using fWW 30 ft SBA up/down 3 steps L rail ascending + 1 platform step using FWW SBA Days to Meet Goals 10 Frequency of Treatment Frequency Of Treatment Twice a Day Treatment Plan Physical Therapy Treatment Plan Bed Mobility Training,Transfer Training,Gait Training, Therapeutic Exercise,Balance Retraining,Post Op Education, Discharge Planning,Hot or Cold Pack,Neuromuscular Re-ed, Coordination Retraining,Manual Therapy Precautions Lumbar Precautions Log Roll,No Twisting,Limit Bending,Lifting Restriction of 10 lbs,Gait Belt above Incisional Area Recommendations To Nursing Amount of Assist Needed 2 Person Assist Discharge Recommendations PT Discharge Recommendations SNF Rehab Transportation Needs at Discharge Wheelchair/Cabulance
[2022-01-26 19:35] VITALS: BP 110/60; PULSE 75; RESP 18; TEMP 37.1; O2SAT 96
[2022-01-26] MEDS: ZOLPIDEM 5 MG TABLET 10 MG PO (21:02)
[2022-01-26] MEDS: SENNOSIDES 8.6 MG TABLET 17.2 MG PO (21:03)
[2022-01-26] MEDS: TRAZODONE 50 MG TABLET 150 MG PO (21:04)
[2022-01-26] MEDS: ATORVASTATIN 20 MG TABLET PO (21:05)
[2022-01-26] MEDS: GABAPENTIN 400 MG CAPSULE 800 MG PO (21:05)
[2022-01-26] MEDS: methocarbamoL 500 MG TABLET PO (21:13)
[2022-01-27 01:17] VITALS: BP 104/56; PULSE 88; RESP 18; TEMP 37.4; O2SAT 92
[2022-01-27] MEDS: HYDROMORPHONE 4 MG TABLET PO ×2 (01:55→08:08)
[2022-01-27] MEDS: hydrOXYzine pamoate 25 MG CAPSULE PO ×4 (01:56→21:51)
[2022-01-27] MEDS: HYDROMORPHONE 0.5 MG INJ IV (04:33)
[2022-01-27 05:14] VITALS: BP 105/58; PULSE 84; RESP 18; TEMP 37.1; O2SAT 93
[2022-01-27] MEDS: PANTOPRAZOLE DR 40 MG TABLET PO (06:06)
[2022-01-27] MEDS: HYDROMORPHONE 1 MG INJ IV (06:06)
--- NOTE | 2022-01-27 07:25 | PM.PNPO.1 ---
Subjective Subjective Date Patient Seen: 01/27/22 Time Patient Seen: 07:25 Interval history: C/o severe back pain, not much progress w/ PT, will need SNF at discharge. This process has been started by CM. She is ordered a variety of pain medication, including both IV and PO hydromorphone in varying amounts PRN; hydroxyzine PRN; methocarbamo 500 q HS; oxycodone 10 mg PRN; and gabapentin 400/400/800. Exam Vital Signs (past 8 hours): - 01/27/22 01:17 01/27/22 05:14 Temperature 99.3 F 98.8 F Pulse Rate 88 84 Respiratory Rate 18 18 Blood Pressure 104/56 L 105/58 L Pulse Oximetry 92 93 Oxygen Flow Rate 0 0 Oxygen Delivery Method Room Air Oxygen Flow Rate 0 Narrative Exam Narrative: 5/5 strength in hip flexors, quadriceps, hamstrings, DF, PF, EHL bilaterally. Sensation to light touch intact in BLE. Calves soft, compressible, nontender and without palpable cords or masses. Pt unable to log roll in order for me to assess dressing, and she cries out in pain when I try to assist her. [facility] Medical History Anxiety Colitis, nonspecific Depression Easy bruisability Fibromyalgia History of revision of total replacement of left knee joint (07/2008) History of revision of total replacement of right knee joint (~2005) HLD (hyperlipidemia) Infection of mandible (2019) Loose left total knee arthroplasty (2003) MRSA (methicillin resistant Staphylococcus aureus) PTSD (post-traumatic stress disorder) Sciatica Spinal stenosis Surgical History History of arthroplasty of right knee (~2003) History of ear surgery History of lumbar spinal fusion (05/2019) History of nasal surgery Hx of arthroscopy of right knee Hx of laminectomy (~2017) Hx of repair of right rotator cuff Social History household members: none Smoking Status: Former smoker alcohol intake: former Assessment & Plan Post-op Assessment and plan (1) S/P lumbar fusion: Assessment and Plan narrative: D/C cifuentes. Continue PT. Plan to d/c to SNF tomorrow. Will discontinue some hydromorphone orders as well as hydroxyzine and increase methocarbamol in an attempt to optimize and streamline pain control. Postoperative Procedures: Procedures Operation Date: 01/25/22 12:45 Actual Procedure Side Surgeon p L4-5 TLIF, L3-5 PSF w. instrumentation-Robot Riri Ulrich MD Postoperative day: 2 Quality VTE Deep Vein Thrombosis/Pulmonary Embolism Present on Admission: No
[2022-01-27 08:05] VITALS: BP 106/65; PULSE 84; RESP 17; TEMP 37.2; O2SAT 93
[2022-01-27] MEDS: ESCITALOPRAM 10 MG TABLET 20 MG PO (08:07)
[2022-01-27] MEDS: buPROPion XL 150 MG TAB PO (08:08)
[2022-01-27] MEDS: GABAPENTIN 400 MG CAPSULE PO ×2 (08:08→16:23)
[2022-01-27] MEDS: DOCUSATE 100 MG CAPSULE PO ×2 (08:08→21:11)
[2022-01-27] MEDS: valACYclovir 500 MG TABLET PO ×2 (08:51→21:11)
[2022-01-27] MEDS: BUDESONIDE 3 MG CAP 9 MG PO (08:51)
--- NOTE | 2022-01-27 10:35 | PT.IPTN ---
Current Diagnoses Spinal stenosis, lumbar region with neurogenic claudication (01/25/22) Arthrodesis status (01/25/22) Surgery Performed Operation Date: 01/25/22 12:45 Actual Procedures p L4-5 TLIF, L3-5 PSF w. instrumentation-Robot - Riri Ulrich MD Physical Therapy Treatment Note M2 PT-IP Current Condition Start: 01/26/22 12:52 Freq: NEEDED Status: Active Protocol: Document 01/26/22 11:30 AB (Rec: 01/26/22 13:04 AB [email or web address]) Physical Therapy Current Condition Current Condition Evaluation Date 01/26/22 Treatment Diagnosis s/p L4-5 fusion; difficulty in walking Onset Date 01/25/22 M3 PT-IP Subjective Start: 01/26/22 12:52 Freq: NEEDED Status: Active Protocol: Document 01/27/22 09:57 KS (Rec: 01/27/22 11:50 KS [id number]) Subjective Physical Therapy Visit Type Type Treatment Note Visit Start Time 09:57 Visit Stop Time 10:35 Total Visit Minutes 38 Notes Pts daughter present during treatment. Number of GLASS INSTALLER TECHNICIAN Visits 2 Physical Therapy Visit Comments Patient Comments needs motivation to participate M4 PT-IP Mobility and Gait Start: 01/26/22 12:52 Freq: NEEDED Status: Active Protocol: Document 01/27/22 09:57 KS (Rec: 01/27/22 11:50 KS [id number]) PT-Bed Mobility Assessment Rolling Type of Rolling Log Rolling,Roll to Left Level of Assist Moderate Assistance,1 Person Assistance Supine to Sit Supine to Sit Maximum Assistance,1 Person Assistance,Bedrails Scooting Scooting to Edge of Bed Maximum Assistance PT-Transfer Assessment Sit to and From Stand Sit to and from Stand Moderate Assistance,1 Person Assistance,Use of Upper Extremities Equipment Transfer Assistive Device Gait Belt,Front Wheeled Walker Orthotic/Prosthetic Devices or Brace: No Transfers Transfer Destination Chair Transfer Technique Stand Step Pivot Transfer Ability Level of Assist Moderate Assistance,1 Person Assistance,Use of Upper Extremities Comments Mobility Comments Pt in bed upon arrival c/o 10/ 10 pain. Needs encouragement to participate but agreed to transferring to chair. Able to recall spinal precautions. Mod A for logroll, Max A for sidelying<>sit and scooting EOB. Pt requires increased time and motivation throughout treatment as well as cues for breathing. Pt sat EOB ~4 min before sit<>stand w/ FWW Mod A w/ cues for knee extension and upright posture. Pt calls out in pain during bed mobility and sit<>stand. Able to perform stand step pivot from bed to chair Mod A w/ FWW but required max step by step cues and FWW mgmt. Max A for scooting back in chair. Pt left reclined in chair w/ all needs in reach. Gait Assessment Gait Gait Assistance Required: Moderate Assistance,Maximum Assistance,1 Person Assist Distance (Feet) 2 Able to Maintain Weight Bearing Status Yes During Gait Assistive Devices Assistive Device Gait Belt,Front Wheeled Walker Orthotic/Prosthetic Devices or Brace: No Gait Deviations General Gait Pattern Antalgic,Decreased Stride Length,Decreased Feet Clearance,Flexed Trunk Factors Limiting Gait Function Factors Limiting Gait Function Decreased Activity Tolerance, Decreased Strength,Difficulty Following Directions,Limited Range of Motion,Pain,Poor Balance,Poor Safety Awareness Comments Gait Comments Stand step pivot from bed to chair only. Unable to tolerate furhter ambulation d/t pain. Stair Climbing Assessment Comments Stair Climbing Comments Unable to assess. Pt has 4 DAE home. PT-Balance Assessment Sitting Balance and Reactions Static Sitting Balance Ability Good Dynamic Sitting Balance Ability Fair Standing Balance and Reactions Static Standing Balance Ability Fair Dynamic Standing Balance Ability Poor Device Used FWW M5 PT-IP Objective Assessments Start: 01/26/22 12:52 Freq: NEEDED Status: Active Protocol: Document 01/26/22 11:30 AB (Rec: 01/26/22 13:04 AB [id number]) Orientation Orientation/Cognition Level of Alertness Alert Orientation Name Safety Awareness Decreased Safety Awareness Memory Description Short Term Impaired,Mcfp Impaired Gross Range of Motion Lower Extremity ROM Assessment Within Functional Limits Strength Lower Extremity Strength Assessment Bilaterally Impaired Comments Strength Comments RLE: 3-/5 LLE: 3+/5 Coordination Assessment Gross Coordination Gross Coordination WNL Sensation Assessment Sensation Gross Sensation WNL Muscle Tone Muscle Tone WNL Yes M6 PT-IP Treatment Start: 01/26/22 12:52 Freq: NEEDED Status: Active Protocol: Document 01/27/22 09:57 KS (Rec: 01/27/22 11:50 KS [id number]) Physical Therapy Treatment Education Education Provided Precautions,Weight Bearing Status,Post-Op Packet,Safety M7 PT-IP Assessment and Plan Start: 01/26/22 12:52 Freq: NEEDED Status: Active Protocol: Document 01/27/22 09:57 KS (Rec: 01/27/22 11:50 KS [id number]) PT Summary Assessment and Plan Potential Rehabilitation Potential Good Summary Impairments Pain,ROM,Strength,Balance, Coordination,Sensation,Tone, Cognition,Bed Mobility, Transfers,Gait,Activity Tolerance Assessment Summary Pt continues to require Mod to Max A for bed mobility and Mod A for stand step pivot transfer using FWW w/ max cues . She c/o excrutiating pain during mobility and needs motivation to participate. Pt unable to tolerate further ambulation or stairs at this time and will require SNF to improve functional mobility independence. Pt not wanting SNF but is aware she may need it because she is not progressing well enough and is too weak to complete stair training. Goals Bed Mobility Goal Minimal Assistance Transfer Goal Minimal Assistance,Front Wheeled Walker Gait Goal Minimal Assistance,Front Wheel Walker Gait Distance 50 Other Goals improve bed mobility, transfers and ambultion using fWW 30 ft SBA up/down 3 steps L rail ascending + 1 platform step using FWW SBA Days to Meet Goals 10 Frequency of Treatment Frequency Of Treatment Twice a Day Treatment Plan Physical Therapy Treatment Plan Bed Mobility Training,Transfer Training,Gait Training, Therapeutic Exercise,Balance Retraining,Post Op Education, Discharge Planning,Hot or Cold Pack,Neuromuscular Re-ed, Coordination Retraining,Manual Therapy Precautions Lumbar Precautions Log Roll,No Twisting,Limit Bending,Lifting Restriction of 10 lbs,Gait Belt above Incisional Area Recommendations To Nursing Amount of Assist Needed 2 Person Assist Discharge Recommendations PT Discharge Recommendations SNF Rehab Transportation Needs at Discharge Wheelchair/Cabulance
[2022-01-27] MEDS: OXYCODONE IR 5 MG TABLET 10 MG PO ×3 (10:55→19:57)
--- NOTE | 2022-01-27 11:29 | CM.DPC ---
Addendum entered by Jacinta Hernández R.N. 01/27/22 15:26: THEEP faxed referral to [place] @ [facility] Lashawn Villanueva, and Filemon WILKINS. Jacinta Hernández RN/CHAN Original Note: DCP Cont: Spoke with pt sister this morning. She stated that she had some questions regarding the facilities choice list that was provided to them. She states that she will update DCP once she has some choices for facility list. Jacinta Hernández RN/THEEP
[2022-01-27 12:00] VITALS: BP 104/62; PULSE 86; RESP 22; TEMP 37; O2SAT 94
--- NOTE | 2022-01-27 12:32 | OT.IP.TRT ---
Current Diagnoses Spinal stenosis, lumbar region with neurogenic claudication (01/25/22) Arthrodesis status (01/25/22) Surgery Performed Operation Date: 01/25/22 12:45 Actual Procedures p L4-5 TLIF, L3-5 PSF w. instrumentation-Robot - Riri Ulrich MD Occupational Therapy Treatment Note M2 OT-IP Current Condition Start: 01/26/22 13:34 Freq: Status: Active Protocol: Document 01/26/22 10:40 [facility] (Rec: 01/26/22 13:58 [facility] [id number]) Occupational Therapy Current Condition Current Condition Evaluation Date 01/26/22 Treatment Diagnosis S/p L4-5 TLIF L3-5 PSF Diagnosis Onset Date 01/25/22 Post Operative Precautions Lumbar Precautions Log Roll,No Twisting,Limit Bending,Lifting Restriction of 10 lbs,Gait Belt above Incisional Area M3 OT- IP Subjective and Pain Start: 01/26/22 13:34 Freq: Status: Active Protocol: Document 01/27/22 12:20 [facility] (Rec: 01/27/22 12:58 [facility] [id number]) OT- Subjective Occupational Therapy Visit Type Type Treatment Note Visit Start Time 12:20 Visit Stop Time 12:32 Total Visit Minutes 12 Occupational Therapy Visit Comments Patient Comments Pt wanting to get back to bed, nursing aid called OT to assist. Patient/Caregiver Goals Pt daughter now agreeing best for pt to go to skilled rehab. OT Pain Assessment Pain When Pain Assessed At Rest Pain Present Pain Present Pain Reported M5 OT- IP IADL's Start: 01/26/22 13:34 Freq: Status: Active Protocol: Document 01/26/22 10:40 [facility] (Rec: 01/26/22 13:58 [facility] [id number]) OT-Instrumental Activities of Daily Living Home Safety Awareness Awareness of Need for Assistance at Home Good Awareness Home Safety Comments Pt a little anxious and needing cues to follow, increased time to process information and follow commands. At this time pt woudl benefit form assist with all needs. Medication Management Medication Management Comments Prior pt able to do . Money Management Money Management Comments Prior pt had no issues. Meal Preparation Meal Preparation Comments Pt will need assist. Ultrasonic Seaming Machine Operator Ultrasonic Seaming Machine Operator Comments Pt will need assist. M6 OT- IP Functional Cognition Start: 01/26/22 13:34 Freq: Status: Active Protocol: Document 01/27/22 12:20 [facility] (Rec: 01/27/22 12:58 [facility] [id number]) Cognitive Factors Limiting Selfcare Function Cognitive Ability Level of Alertness Alert Patient Orientation Name,Place,Situation Attention Span Ability Capable of Focused Attention, Capable of Sustained Attention Ability to Follow Commands Able to Follow One Step Commands with Increased Time, Able to Follow One Step Commands with Repetition Safety Awareness Decreased Recall of Precautions Cognitive Comments Cognitive Assessment Comments Pt still needing cues to focus , breath, take her time. Pt needing constant reassurance and cues to follow. M7 OT- IP Mobility and Balance Start: 01/26/22 13:34 Freq: Status: Active Protocol: Document 01/27/22 12:20 [facility] (Rec: 01/27/22 12:58 [facility] [id number]) OT- Bed Mobility Assessment Sit to Supine Sit to Supine Assist Maximum Assistance,2 Person Assistance OT-Transfer Assessment Sit to and From Stand Sit to and from Stand Moderate Assistance,Maximum Assistance,2 Person Assistance Transfers Transfer Ability Standby Assistance,Maximum Assistance,1 Person Assistance ,2 Person Assistance Technique Transfer Destination Bed,Chair Transfer Technique Stand Step Pivot Devices Transfer Assistive Devices Gait Belt,Front Wheeled Walker Comments Mobility Comments Pt needing MAX AX 1 to stand and YEFRI of her daughter to assist to stand to FWW. Transfer MAX AX 1 to help guide the FWW and for steadying of the pt. OT- Balance Assessment Sitting Balance and Reactions Static Sitting Balance Ability Good Dynamic Sitting Balance Ability Fair Standing Balance and Reactions Static Standing Balance Ability Poor Dynamic Standing Balance Ability Poor M8 OT- IP Objective Assessments Start: 01/26/22 13:34 Freq: Status: Active Protocol: Document 01/26/22 10:40 [facility] (Rec: 01/26/22 13:58 [facility] [id number]) OT-Muscle Tone Assessment Muscle Tone WNL Yes M9 OT- IP Assessment and Plan Start: 01/26/22 13:34 Freq: Status: Active Protocol: Document 01/27/22 12:20 [facility] (Rec: 01/27/22 12:58 [facility] [id number]) OT Summary Assessment and Plan Potential Rehabilitation Potential Good Analytic Complexity at Evaluation Moderate Summary OT Impairments Pain,Balance,Functional Cognition,Functional Mobility, Self-Feeding,Grooming,Dressing ,Toileting,Bathing,Toilet Transfers,Shower Transfers, Activity Tolerance Progress Towards Goals Slow Progress due to Pain,Slow Progress due to Medical Issues,Slow Progress due to Activity Tolerance,Slow Progress due to Cognition Assessment Summary Pt still needing lots of encouragement, cues to breath, follow cues for mobility back to bed at this time, and for safety awareness of use of FWW and hand placement. Pt's daughter now feels pt's care too great for her to handle and wanting to look into pt going to skilled rehab. Goals Grooming Goal Independent Dressing Goal Independent Toileting Goal Independent Bathing Goal Independent Toilet Transfer Goal Independent Shower Transfer Goal Independent Patient/Caregiver Education Goal Demonstrate Post-Op Precautions,Caregiver Independent Assisting Patient Days to Meet Goals 20 Frequency of Treatment Frequency Of Treatment Once a Day Treatment Plan OT Treatment Plan ADL Training,Functional Cognition Training,Functional Mobility,Patient/Family Education,Discharge Planning Other Treatment Recommendations and Next Transfer to [facility] with MODA X 1 Treatment Focus with FWW, caregiver training if appropriate Discharge Recommendations OT Discharge Recommendations SNF Rehab Transportation Needs at Discharge Wheelchair/Cabulance
[2022-01-27 13:03] VITALS: BP 104/62; PULSE 86; RESP 24; TEMP 37; O2SAT 94
[2022-01-27] MEDS: HYDROMORPHONE 2 MG TABLET PO ×2 (13:06→21:50)
[2022-01-27] MEDS: methocarbamoL 500 MG TABLET PO (13:06)
--- NOTE | 2022-01-27 15:29 | PT-IP ANOTE ---
Attempted to see pt for PM treatment, pt refused stating she is in too much pain and unable to tolerate further mobility this afternoon following transfer back to bed w/ OT. Will check back tomorrow.
[2022-01-27] MEDS: PROMETHAZINE 25 MG TABLET PO (17:15)
[2022-01-27 20:00] VITALS: BP 108/67; PULSE 93; RESP 18; TEMP 37.1; O2SAT 92
[2022-01-27] MEDS: ONDANSETRON 4 MG/2 ML INJ IV (20:25)
[2022-01-27] MEDS: SODIUM CHLORIDE 0.9% FLUSH 10 ML IV (20:26)
[2022-01-27] MEDS: ATORVASTATIN 20 MG TABLET PO (21:11)
[2022-01-27] MEDS: TRAZODONE 50 MG TABLET 150 MG PO (21:11)
[2022-01-27] MEDS: SENNOSIDES 8.6 MG TABLET 17.2 MG PO (21:11)
[2022-01-27] MEDS: ZOLPIDEM 5 MG TABLET 10 MG PO (21:11)
[2022-01-27] MEDS: GABAPENTIN 400 MG CAPSULE 800 MG PO (21:11)
--- NOTE | 2022-01-27 22:18 | PC.NURSE ---
Addendum entered by Jennifer Tang R.N. 01/28/22 00:10: Patient sleeping soundly and GL ACCOUNTANT reports unable to awaken and O2 sat 85%. Had received 10mg Ambien earlier. Oxygen applied at 2L/min per NC and patient did arouse when cannula was being placed. O2 sat on oxygen is 93%. Original Note: Patient is alert and oriented but anxious. Breath sounds diminished but CTA with RA sat of 92%. Respirations are shallow and holds her breath during any mobility. HRR. Complained of nausea earlier and was medicated with Zofran with resolution of symptoms. BT present and abdomen is soft. Indwelling catheter was removed approximately 1530 today and has not yet voided. Gotten up to [facility] with 2 assists + walker and unable to void at this time. Patient complains of constant pain 6-10/10 and has lots of difficulty in getting out of bed due to pain. Was medicated with oxycodone around 1999 and dilaudid + vistaril at 0. Once patient is standing with walker she is able to take several steps to/from commode without difficulty. Is able to move self in bed. Dressing to back is intact with shadow drainage. Denies tingling/numbness but is weak. Bilateral calf SCD's applied. Fall risk score is high and bed alarm is activated.
[2022-01-28] VITALS: BP 106/65; PULSE 105; RESP 16; TEMP 36.4; O2SAT 93
[2022-01-28] MEDS: ONDANSETRON 4 MG/2 ML INJ IV (03:24)
[2022-01-28] MEDS: SODIUM CHLORIDE 0.9% FLUSH 10 ML IV ×2 (03:25→09:17)
[2022-01-28] MEDS: HYDROMORPHONE 2 MG TABLET PO ×2 (03:29→12:00)
[2022-01-28 04:00] VITALS: BP 143/73; PULSE 85; RESP 18; TEMP 36.6; O2SAT 95
[2022-01-28] MEDS: PANTOPRAZOLE DR 40 MG TABLET PO (06:14)
[2022-01-28] MEDS: OXYCODONE IR 5 MG TABLET 10 MG PO (06:15)
[2022-01-28] MEDS: hydrOXYzine pamoate 25 MG CAPSULE PO (07:57)
[2022-01-28 08:29] VITALS: BP 109/67; PULSE 97; RESP 17; TEMP 36.6; O2SAT 94
[2022-01-28] MEDS: BUDESONIDE 3 MG CAP 9 MG PO (09:13)
[2022-01-28] MEDS: valACYclovir 500 MG TABLET PO (09:14)
[2022-01-28] MEDS: DOCUSATE 100 MG CAPSULE PO (09:14)
[2022-01-28] MEDS: buPROPion XL 150 MG TAB PO (09:15)
[2022-01-28] MEDS: ESCITALOPRAM 10 MG TABLET 20 MG PO (09:15)
[2022-01-28] MEDS: GABAPENTIN 400 MG CAPSULE PO (09:17)
--- NOTE | 2022-01-28 09:47 | P.DS_ITS ---
History of Present Illness History of Present Illness Date Patient Seen: 01/28/22 Time Patient Seen: 09:47 Chief complaint: OPB Narrative: Operative Date/Time/Diagnoses Date of procedure: 01/25/22 Time of procedure: 13:00 Pre-op diagnosis: 1. L4-5 spinal stenosis with neurogenic claudication 2. History of L3-4 fusion with instrumentation Post-op diagnosis: same Procedure & Clinicians Procedure: 1. L4-5 posterolateral and posterior interbody fusion 2. L4-5 posterior interbody cage placement 3. L3-4 revision laminectomy with exploration of fusion 4. L3-4, L4-5 posterior segmental instrumentation with pedicle screw placement 5. L3-4 posterolatearl fusion 6. [place] of bone marrow from iliac crest through a separate incision 7. Utilization of microsurgical technique and operating microscope 8. Utilization of robotic assisted navigation Same procedure as scheduled: Yes Indications: Patient has been having chronic back pain and worsening lumbar radiculopathy. Patient failed multiple conservative management with worsening pain weakness and numbness in her lower extremity.? Patient has been having difficulty performing activity of daily living.? After discussing risks benefits of treatment options, patient elected proceed with surgery. Surgeon: Riri Ulrich Chisel Trimmer: Shannen Samayoa Click Yes if Unassisted: No Anesthesia Type: General Operative Notes Closure Type: primary Specimen(s): none sent Prosthetic devices, grafts, tissues, transplants, or devices: Globus CREO MIS screws, RIse cage Applied: catheter Estimated Blood Loss (mL): 50 Blood products transfused: none Discharge Providers Provider Date of admission: 01/25/22 18:00 Discharge Date: 01/28/22 Consults: 01/25/22 18:16 Consult to Occupational Therapy Evaluate & Treat Comment: Physician Instructions: Evaluate and treat Consult to Physical Therapy Evaluate & Treat Comment: Physician Instructions: Evaluate and Treat Discharge provider: Shannen Samayoa PA-C Summary Hospital Course Discharge Diagnosis: s/p lumbar fusion Hospital Course: Ms Gonzalez's hospital course was remarkable for significant pain postoperatively; this delayed her progress w/ PT. On POD# 3 she was not safe for d/c home and required discharge to SNF for further rehab. She was eating and voiding without difficulty. She said she had better relief of muscle spasm from hydroxyzine than robaxin, but wanted to keep both on board. She was also receiving oxycod one and hydromorphone. Exam Vital Signs (past 8 hours): - 01/28/22 04:00 01/28/22 08:29 Temperature 97.9 F 97.8 F Pulse Rate 85 97 H Respiratory Rate 18 17 Blood Pressure 143/73 H 109/67 Pulse Oximetry 95 94 Oxygen Flow Rate 0 Oxygen Delivery Method Room Air Oxygen Flow Rate 0 Narrative Exam Narrative: 5/5 strength in quadriceps, hamstrings, DF, PF, EHL bilaterally. Sensation to light touch intact in BLE. Calves soft, compressible, nontender and without palpable cords or masses. Low back dressing placed intraoperatively is CDI. [facility] Medical History Anxiety Colitis, nonspecific Depression Easy bruisability Fibromyalgia History of revision of total replacement of left knee joint (07/2008) History of revision of total replacement of right knee joint (~2005) HLD (hyperlipidemia) Infection of mandible (2019) Loose left total knee arthroplasty (2003) MRSA (methicillin resistant Staphylococcus aureus) PTSD (post-traumatic stress disorder) Sciatica Spinal stenosis Surgical History History of arthroplasty of right knee (~2003) History of ear surgery History of lumbar spinal fusion (05/2019) History of nasal surgery Hx of arthroscopy of right knee Hx of laminectomy (~2017) Hx of repair of right rotator cuff Social History household members: none Smoking Status: Former smoker alcohol intake: former Discharge Assessment & Plan Assessment and Plan Assessment: s/p L4-5 transforaminal lumbar interbody fusion, removal of L3-4 hardware, posterolateral L3-5 instrumented fusion Plan of Treatment: Discharge to SNF for further rehab prior to home going, multimodal pain control. Discharge Plan Discharge Plan Patient Disposition: SNF Discharge orders & Medications Prescriptions: New docusate sodium 100 mg Capsule 100 mg PO BID PRN (Reason: constipation) Qty: 60 2RF hydromorphone 2 mg Tablet 2 mg PO Q3H PRN (Reason: pain, severe) Qty: 30 0RF hydroxyzine pamoate 25 mg Capsule 25 mg PO Q4HR PRN (Reason: Muscle Spasm) Qty: 120 1RF methocarbamol 500 mg Tablet 500 mg PO TID PRN (Reason: Muscle Spasm) Qty: 60 0RF oxycodone 5 mg tablet 5 mg PO Q4H PRN (Reason: pain, moderate) Qty: 60 0RF Rx Instructions: 1-2 tabs (5-10mg) q 4H Continued gabapentin 400 mg Capsule 400 mg PO SEEINSTR Label Comments: 400mg qam, 400mg qpm, 800mg bedtime valacyclovir 500 mg Tablet 500 mg PO BID oxycodone-acetaminophen 10-325 mg Tablet 1 tab PO BID-TID trazodone 150 mg Tablet 150 mg PO BEDTIME promethazine 25 mg Tablet 25 mg PO Q4-6H PRN (Reason: Nausea) budesonide 3 mg Capsule,Delayed,Extend.Release 9 mg PO QAM zolpidem [Ambien] 10 mg Tablet 10 mg PO BEDTIME acetaminophen 500 mg Capsule 1,000 mg PO Q6H PRN (Reason: Pain) esomeprazole magnesium 20 mg Capsule,Delayed Release(Dr/Ec) 40 mg PO DAILY escitalopram oxalate [Lexapro] 20 mg Tablet 20 mg PO DAILY bupropion HCl 300 mg Tablet Extended Release 24 Hr 150 mg PO QAM simvastatin 40 mg Tablet 40 mg PO BEDTIME diphenhydramine HCl [Benadryl] 25 mg Capsule 50 - 100 mg PO BEDTIME PRN (Reason: Sleep) Discontinued methocarbamol 500 mg Tablet 500 mg PO DAILY PRN (Reason: Pain) ibuprofen 800 mg Tablet 800 mg PO BID-TID Follow up/Referrals: Riri Ulrich MD [Physician] - As previously scheduled (Follow up with Korey Hickey PA-C, on 02/04/2022 @ 2:40 pm at [facility] in [place]. ) Diet/Activity/Treatments Diet: Diet as Tolerated Activity: No bending more than 90 degrees at the waist. No twisting from side to side. No lifting more than 10 pounds. Cold/Heat Therapy: Ice to back as needed for pain. Skin/Wound/Dressing Care Report to your healthcare provider any signs of infection, such as:: chills, fever, night sweats, unusual drainage and unusual redness Dressing: May shower; keep dressing as dry as possible. May change dressing to clean, dry gauze if it becomes wet inside. No bathing or otherwise soaking incision. No creams, lotions, or ointments on incisions. [facility] Rehab type: Physical therapy and Occupational therapy Visit Report/Discharge Packet Instructions: DI for Prescription Opioid Use, DI for Transforaminal Lumbar Interbody Fusion Stand Alone Forms: Surgery Discharge Quality VTE Deep Vein Thrombosis/Pulmonary Embolism Present on Admission: No
--- NOTE | 2022-01-28 10:30 | PT-IP ANOTE ---
DIRECTOR OF LABOR RELATIONS attempted to mobility 0750 and 1010 with pt but upon arrival but just got back into bed with nursing/daughter to bathroom/BSC. Pt reports tired but wanting to trial stairs L HR 4 shallow step to enter daughter's with daughter this am to be able to know if can go home with daughter. KODI will be home with pt to assist her, daughter back to work 1445 today. DIRECTOR OF LABOR RELATIONS Mariposa will perform CGT with pt/daughter later this am per pt request. If needed CGT with KODI in pm will be decided depending on am tx assessment.
--- NOTE | 2022-01-28 11:38 | PT.IPTN ---
Current Diagnoses Spinal stenosis, lumbar region with neurogenic claudication (01/25/22) Arthrodesis status (01/25/22) Surgery Performed Operation Date: 01/25/22 12:45 Actual Procedures p L4-5 TLIF, L3-5 PSF w. instrumentation-Robot - Riri Ulrich MD Physical Therapy Treatment Note M2 PT-IP Current Condition Start: 01/26/22 12:52 Freq: NEEDED Status: Active Protocol: Document 01/26/22 11:30 AB (Rec: 01/26/22 13:04 AB [id number]) Physical Therapy Current Condition Current Condition Evaluation Date 01/26/22 Treatment Diagnosis s/p L4-5 fusion; difficulty in walking Onset Date 01/25/22 M3 PT-IP Subjective Start: 01/26/22 12:52 Freq: NEEDED Status: Active Protocol: Document 01/28/22 11:12 [place] (Rec: 01/28/22 13:08 KS [id number]) Subjective Physical Therapy Visit Type Type Treatment Note Visit Start Time 11:12 Visit Stop Time 11:38 Total Visit Minutes 26 Notes Pts daughter present during treatment. Number of PARTNERSHIP MARKETING MANAGER Visits 3 Physical Therapy Visit Comments Patient Comments needs motivation to participate M4 PT-IP Mobility and Gait Start: 01/26/22 12:52 Freq: NEEDED Status: Active Protocol: Document 01/28/22 11:12 [place] (Rec: 01/28/22 13:08 [place] [id number]) PT-Bed Mobility Assessment Rolling Type of Rolling Log Rolling,Roll to Left Level of Assist Moderate Assistance,1 Person Assistance Supine to Sit Supine to Sit Moderate Assistance,1 Person Assistance,Head of Bed Elevated,Bedrails Sit to Supine Sit to Supine Moderate Assistance,1 Person Assistance Scooting Scooting to Edge of Bed Contact Guard Assistance PT-Transfer Assessment Sit to and From Stand Sit to and from Stand Moderate Assistance,1 Person Assistance,Use of Upper Extremities Equipment Transfer Assistive Device Gait Belt,Front Wheeled Walker Orthotic/Prosthetic Devices or Brace: No Transfers Transfer Destination Bed Transfer Technique Pt ambulated w/ FWW Transfer Ability Level of Assist Moderate Assistance,1 Person Assistance,Use of Upper Extremities Comments Mobility Comments Pt in bed upon arrival and wincing in pain w/ all mobility. Pts daughter present throughout and stating ot mobilized better earlier this AM. Pt Mod A for logroll and sidelying<>Sit. Able to scoot EOB CGA. Mod A for sit<>stand w/ FWW and pt wincing, guarding, holding breath because of pain. She then ambulated ~12 ft w/ FWW w/ extremely slow pace, minimal ground clearance and short stride w/ cues for upright posture and FWW mgmt. Pt unable to tolerate further mobility and returned to bed. Mod A for sit<>sup. Pt left in bed w/ all needs in reach. Gait Assessment Gait Gait Assistance Required: Minimum Assistance,1 Person Assist Distance (Feet) 12 Able to Maintain Weight Bearing Status Yes During Gait Assistive Devices Assistive Device Gait Belt,Front Wheeled Walker Orthotic/Prosthetic Devices or Brace: No Gait Deviations General Gait Pattern Antalgic,Decreased Stride Length,Decreased Feet Clearance,Flexed Trunk Factors Limiting Gait Function Factors Limiting Gait Function Decreased Activity Tolerance, Decreased Strength,Difficulty Following Directions,Limited Range of Motion,Pain,Poor Balance,Poor Safety Awareness Comments Gait Comments Please refer to mobility section for details. Stair Climbing Assessment Comments Stair Climbing Comments Unable to assess. Pt has 4 DAE home. PT-Balance Assessment Sitting Balance and Reactions Static Sitting Balance Ability Good Dynamic Sitting Balance Ability Fair Standing Balance and Reactions Static Standing Balance Ability Fair Dynamic Standing Balance Ability Fair Device Used FWW M5 PT-IP Objective Assessments Start: 01/26/22 12:52 Freq: NEEDED Status: Active Protocol: Document 01/26/22 11:30 AB (Rec: 01/26/22 13:04 AB [id number]) Orientation Orientation/Cognition Level of Alertness Alert Orientation Name Safety Awareness Decreased Safety Awareness Memory Description Short Term Impaired,Wincher Impaired Gross Range of Motion Lower Extremity ROM Assessment Within Functional Limits Strength Lower Extremity Strength Assessment Bilaterally Impaired Comments Strength Comments RLE: 3-/5 LLE: 3+/5 Coordination Assessment Gross Coordination Gross Coordination WNL Sensation Assessment Sensation Gross Sensation WNL Muscle Tone Muscle Tone WNL Yes M6 PT-IP Treatment Start: 01/26/22 12:52 Freq: NEEDED Status: Active Protocol: Document 01/28/22 11:12 KS (Rec: 01/28/22 13:08 KS [id number]) Physical Therapy Treatment Education Education Provided Precautions,Weight Bearing Status,Post-Op Packet,Safety M7 PT-IP Assessment and Plan Start: 01/26/22 12:52 Freq: NEEDED Status: Active Protocol: Document 01/28/22 11:12 [place] (Rec: 08/25/22 13:08 KS [id number]) PT Summary Assessment and Plan Potential Rehabilitation Potential Good Summary Impairments Pain,ROM,Strength,Balance, Coordination,Sensation,Tone, Cognition,Bed Mobility, Transfers,Gait,Activity Tolerance Assessment Summary Pt showing improvement, but still requiring Mod A for bed mobility and transfers w/ FWW. Pt only able to tolerate 12 ft ambulation and had very minimal foot clearance w/ slow pace due to pain. Pts dtr returns to work this PM and KODI only available through Tuesday and pt currently unable to complete stairs. She will require SNF to improve strength and functional mobility independence. Goals Bed Mobility Goal Minimal Assistance Transfer Goal Minimal Assistance,Front Wheeled Walker Gait Goal Minimal Assistance,Front Wheel Walker Gait Distance 50 Other Goals improve bed mobility, transfers and ambultion using fWW 30 ft SBA up/down 3 steps L rail ascending + 1 platform step using FWW SBA Days to Meet Goals 10 Frequency of Treatment Frequency Of Treatment Twice a Day Treatment Plan Physical Therapy Treatment Plan Bed Mobility Training,Transfer Training,Gait Training, Therapeutic Exercise,Balance Retraining,Post Op Education, Discharge Planning,Hot or Cold Pack,Neuromuscular Re-ed, Coordination Retraining,Manual Therapy Precautions Lumbar Precautions Log Roll,No Twisting,Limit Bending,Lifting Restriction of 10 lbs,Gait Belt above Incisional Area Recommendations To Nursing Amount of Assist Needed 2 Person Assist Discharge Recommendations PT Discharge Recommendations SNF Rehab Transportation Needs at Discharge Wheelchair/Cabulance
[2022-01-28 12:51] LABS: COVID19 -Nasal RAPID Negative (Negative)
--- NOTE | 2022-01-28 13:39 | OT.IPNOTE ---
Pt going to skilled rehab today and awaiting her ride.
--- NOTE | 2022-01-28 14:44 | CM.DPC ---
DCP Cont: Pt is medically stable for discharge. DCP spoke to [place] @ [facility] and they can accept pt today @ 1330. Transport is set up by [facility]. PASRR completed. COVID swab ordered and collected by RN. Pt agreeable to rehab. All clinicals will be sent to [place] with orders and rx's. RN-RN number provided to RN for report. Jacinta Hernández RN/THEEP
== END 2022-01-28 13:52 | DRG 454 ==
LOC: OR 01-27 07:20 → ICU 01-27 07:20
PROVIDERS: Admitting Provider Orthopaedic Surgery Orthopaedic Surgery of the Spine; Referring Provider Orthopaedic Surgery Orthopaedic Surgery of the Spine; Visit Provider Orthopaedic Surgery Orthopaedic Surgery of the Spine
PROC: 0SG10AJ Fusion of 2 or more Lumbar Vertebral Joints with Interbody Fusion Device, Posterior Approach, Anterior Column, Open Approach (ICD-10-PCS; principal; 2022-01-25 12:45)
DX: M48.062 Spinal stenosis, lumbar region with neurogenic claudication (principal); M96.0 Pseudarthrosis after fusion or arthrodesis; R33.9 Retention of urine, unspecified; G89.18 Other acute postprocedural pain; F32.A Depression, unspecified; M79.7 Fibromyalgia; F41.9 Anxiety disorder, unspecified; E78.5 Hyperlipidemia, unspecified; Z20.822 Contact with and (suspected) exposure to COVID-19; Z87.891 Personal history of nicotine dependence; Z98.1 Arthrodesis status
CPT/HCPCS: 72100; 76000; 87635; 87797; 97116; 97162; 97166; 97530; 97535; C9803; C9290; J0131; J0171; J0690; J1100; J1170; J2250; J2405; J2704; J3010; J3360; J3410

== ENCOUNTER 2022-01-31 12:37 | Inpatient (IN) | payer MEDICARE, SELFPAY ==
[2022-01-25 18:27] VITALS: BMI 25.6
[2022-01-31] VITALS (17 sets, daily range): BP systolic 124–155; BP diastolic 67–95; PULSE 84–147; RESP 9–26; TEMP 36.5–37.3; O2SAT 93–99; BMI 25.1
[2022-01-31] MEDS: ONDANSETRON 4 MG/2 ML INJ IV ×2 (13:50→21:10)
[2022-01-31] MEDS: SODIUM CHLORIDE 0.9% 1,000 ML 1000 ML IV ×2 (13:50→15:52)
[2022-01-31 14:07] LABS: Add Manual Diff / Slide Review NO; Basophils Absolute Auto 0 /uL (0-100); Basophils Percent Auto 0.3 % (0-2); Eosinophils Absolute Auto 100 /uL (0-450); Eosinophils Percent Auto 0.6 % (2-4); Hematocrit 39.8 % (36-46); Hemoglobin 13.9 g/dL (12.0-16.0); Lymphocytes Absolute Auto 700 /uL (1100-4500); Lymphocytes Percent Auto 4.3 % (25-40); Mean Corpuscular HGB Conc 34.9 % (30-36); Mean Corpuscular Hemoglobin 31.2 PG (26-34); Mean Corpuscular Volume 89.4 fL (80-100); Monocytes Absolute Auto 1000 /uL (0-900); Monocytes Percent Auto 6.4 % (3-14); Neutrophils Absolute Auto 13700 /uL (1500-7000); Neutrophils Percent Auto 88.4 % (50-75); Platelet Count 486 X10^3/uL (150-400); Red Blood Cell Count 4.45 X10^6/uL (4.0-5.2); Red Cell Distribution Width 13.7 % (11.6-14.8); White Blood Cell Count 15.5 X10^3/uL (4.5-11.0)
[2022-01-31 14:18] LABS: Alanine Aminotransferase 13 IU/L (<35); Albumin 4.3 g/dL (3.5-5.0); Albumin Globulin Ratio 1.3 (1.0-2.8); Alkaline Phosphatase 100 U/L (38-126); Aspartate Aminotransferase 22 IU/L (14-36); BUN Creatinine Ratio 16.3 (6-22); Bilirubin Total 0.8 mg/dL (0.2-1.3); Blood Urea Nitrogen 14 mg/dL (7-17); Calcium 10.1 mg/dL (8.4-10.2); Carbon Dioxide 25 mmol/L (22-32); Chloride 97 mmol/L (98-107); Estimated Glomerular Filt Rate > 60 mL/min (>60); Globulin 3.3 g/dL (1.7-4.1); Glucose 214 mg/dL (80-110); HEMOLYSIS < 15 (0-50); Lipase 37 U/L (23-300); Potassium 3.2 mmol/L (3.4-5.1); Sodium 137 mmol/L (137-145); Total Protein 7.6 g/dL (6.3-8.2)
--- NOTE | 2022-01-31 15:13 | PC.NURSE ---
Rounded reports initial improvement from Zofran, was able to rest, called RN back into room to report return of symptoms. Also states she was not able to take her morning medications this morning. Pt reports concern for withdrawal from Neurotin, last dose last night. Reports she took pain medications this morning at facility including Dilauded.
--- NOTE | 2022-01-31 15:24 | PC.NURSE ---
pt got up to use the bedside commode. HR increased to 142. EKG called,
[2022-01-31 15:25] LABS: COVID19 -Nasal RAPID Negative (Negative)
--- NOTE | 2022-01-31 15:50 | ED.NAVMDI ---
HPI - Nausea/Vomiting/Diarrhea General Chief complaint: Nausea/Vomiting/Diarrhea Stated complaint: POST OP PAIN Time Seen by Provider: 01/31/22 14:34 Source: patient and family Mode of arrival: Wheelchair Limitations: no limitations History of Present Illness HPI Narrative: This is a 66-year-old female history anxiety, chronic back pain who had back surgery with Dr. Riri Ulrich on L3-L4 for spinal stenosis with neurogenic claudication on 01/26/22 and discharged to rehab on 01/28/2022 after having difficulty with pain management telling her progress with PT. Patient states she is been taking oxycodone, hydroxyzine and Robaxin. Patient presents today with complaint of nausea and vomiting. States she is had persistent pain and somewhat worsened but not significantly so until after she started vomiting. She denies fevers but states she is been very chilled and has rigors in the room. She denies cough cold or congestion. She denies chest pain or pressure or shortness of breath. Patient states she is been very nauseated. Patient has had vomiting that started today nausea started yesterday. She states she started having bowel movements Tuesday after her surgery, they have been liquidy without solid bowel movements. Patient denies any black or bloody stools. Patient denies dysuria, frequency or urgency. Patient states no rashes signs of infection she states that her incision has not had any drainage. Patient states she is had some pain down her legs and some numbness and tingling postoperatively but this was immediately has not been worsening. She states movement in her lower extremities has been good she denies any incontinence or saddle anesthesia. Related Data Home Medications Medication Instructions Recorded Confirmed acetaminophen 500 mg capsule 1,000 mg PO Q6H PRN Pain 01/15/22 01/15/22 budesonide 3 mg 9 mg PO QAM 01/15/22 01/25/22 capsule,delayed,extended release bupropion HCl 300 mg 24 hr tablet, 150 mg PO QAM 01/15/22 01/25/22 extended release escitalopram oxalate 20 mg tablet 20 mg PO DAILY 01/15/22 01/25/22 (Lexapro) esomeprazole magnesium 20 mg 40 mg PO DAILY 01/15/22 01/25/22 capsule,delayed release gabapentin 400 mg capsule 400 mg PO SEEINSTR 01/15/22 01/25/22 oxycodone-acetaminophen 10 mg-325 1 tab PO BID-TID 01/15/22 01/15/22 mg tablet promethazine 25 mg tablet 25 mg PO Q4-6H PRN Nausea 01/15/22 01/15/22 simvastatin 40 mg tablet 40 mg PO BEDTIME 01/15/22 01/25/22 trazodone 150 mg tablet 150 mg PO BEDTIME 01/15/22 01/25/22 valacyclovir 500 mg tablet 500 mg PO BID 01/15/22 01/25/22 zolpidem 10 mg tablet (Ambien) 10 mg PO BEDTIME 01/15/22 01/25/22 diphenhydramine HCl 25 mg capsule 50 - 100 mg PO BEDTIME PRN Sleep 01/18/22 01/25/22 (Benadryl) Previous Rx's Medication Instructions Recorded docusate sodium 100 mg capsule 100 mg PO BID PRN constipation #60 01/28/22 caps hydromorphone 2 mg tablet 2 mg PO Q3H PRN pain, severe #30 01/28/22 tabs hydroxyzine pamoate 25 mg capsule 25 mg PO Q4HR PRN Muscle Spasm 01/28/22 #120 caps methocarbamol 500 mg tablet 500 mg PO TID PRN Muscle Spasm #60 01/28/22 tabs oxycodone 5 mg tablet 5 mg PO Q4H PRN pain, moderate #60 01/28/22 tabs zolpidem 10 mg tablet 10 mg PO BEDTIME PRN insomnia #14 01/28/22 tabs Allergies Allergy/AdvReac Type Severity Reaction Status Date / Time Iodinated Contrast Media Allergy Mild Rash Verified 01/25/22 12:14 rifampin Allergy Mild Rash Verified 01/25/22 12:14 vancomycin Allergy Mild Rash Verified 01/25/22 12:14 Review of Systems Review of Systems ROS Unobtainable: All systems reviewed & are unremarkable except as noted in HPI and below Patient History Medical History Anxiety Colitis, nonspecific Depression Easy bruisability Fibromyalgia History of revision of total replacement of left knee joint (07/2008) History of revision of total replacement of right knee joint (~2005) HLD (hyperlipidemia) Infection of mandible (2019) Loose left total knee arthroplasty (2003) MRSA (methicillin resistant Staphylococcus aureus) PTSD (post-traumatic stress disorder) Sciatica Spinal stenosis Surgical History History of arthroplasty of right knee (~2003) History of ear surgery History of lumbar spinal fusion (05/2019) History of nasal surgery Hx of arthroscopy of right knee Hx of laminectomy (~2017) Hx of repair of right rotator cuff Social History household members: none Smoking Status: Former smoker alcohol intake: former Smoking Status: Former smoker alcohol intake frequency: holidays/special occasions only Substance Use Type: marijuana Exam Narrative Exam Narrative: GEN: well nourished, well appearing female, alert and oriented x 3, patient appears to be in moderate distress. HEENT: Atraumatic, pupils are equal round reactive to light, extraocular movements are intact, nares are clear. Throat is clear without any exudates, erythema, tonsillar enlargement or uvular deviation HEART: Regular rate and rhythm without murmur, clicks, rubs. No carotid bruits, pulses are equal in upper and lower extremities LUNGS:Lungs clear to auscultation, no wheezes, rales, crackles, chest moves symmetrically ABD:bowel sounds normal, soft, generalized tenderness, nondistended no guarding, rebound, rigidity, no masses noted, no hepatosplenomegaly, patient actively dry heaving in the room. :No CVA tenderness MSCL: Non-tender, no muscle atrophy, muscles strength 5/5 upper and lower extremities, full range of motion, patient does not have pain with straight leg raise lift bilaterally. NEURO:CN 2-12 intact, sensation normal, reflexes 2/4 upper and sensation intact bilateral extremities SKIN: No Rash, erythema or other skin changes noted. Initial Vital Signs Initial Vital Signs: Vital Signs Temperature 97.7 F 01/31/22 13:24 Pulse Rate 130 H 01/31/22 13:24 Respiratory Rate 20 01/31/22 13:24 Blood Pressure 139/68 01/31/22 13:24 Pulse Oximetry 97 01/31/22 13:24 Oxygen Delivery Method 01/31/22 13:24 Course Orders Ordered: ED Orders 01/31/22 13:32 EKG-12 Lead Stat 01/31/22 13:43 Complete Blood Count AUTO DIFF Stat Comprehensive Metabolic Panel Stat Lactate (Lactic Acid) Stat Lipase Stat Procalcitonin Stat 01/31/22 14:18 Blood Culture Stat 01/31/22 14:29 COVID19 -Nasal RAPID/Pre-Proc Stat 01/31/22 16:45 CT abdomen pelvis w con Stat CT angio chest PE protocol Stat 01/31/22 18:36 GI Panel (Film Array) Stat POTASSIUM CHLORIDE IN WATER (Potassium Cl 10 Meq/100 Ml Yolanda) 10 meq in 100 mls @ 100 mls/hr IV Q1H MYNOR Stop: 01/31/22 22:59 Discontinued Medications Diphenhydramine HCl (Diphenhydramine 50 Mg/Ml Vial) 25 mg IV NOW ONE Stop: 01/31/22 15:37 Last Admin: 01/31/22 15:53 Dose: 25 mg Documented By: AT Hydromorphone HCl (Hydromorphone 1 Mg Inj) 1 mg IV NOW ONE Stop: 01/31/22 16:47 Last Admin: 01/31/22 16:57 Dose: 1 mg Documented By: AT Sodium Chloride (Normal Saline 0.9%) 1,000 mls @ 1,000 mls/hr IV BOLUS ONE Stop: 01/31/22 14:31 Last Infusion: 01/31/22 15:12 Dose: 0 mls/hr Documented By: Admin: 01/31/22 13:50 Dose: 1,000 mls/hr Documented By: AT Sodium Chloride (Normal Saline 0.9%) 1,000 mls @ 1,000 mls/hr IV BOLUS ONE Stop: 01/31/22 16:34 Last Infusion: 01/31/22 18:11 Dose: 0 mls/hr Documented By: Admin: 01/31/22 15:52 Dose: 1,000 mls/hr Documented By: AT Sodium Chloride (Normal Saline 0.9%) 1,000 mls @ 200 mls/hr IV CONT MYNOR Last Infusion: 01/31/22 20:07 Dose: 0 mls/hr Documented By: Admin: 01/31/22 18:11 Dose: 200 mls/hr Documented By: AT Piperacillin Sod/Tazobactam (Sod 4.5 gm/ Sodium Chloride) 100 mls @ 200 mls/hr IV NOW ONE Stop: 01/31/22 18:27 Last Infusion: 01/31/22 19:31 Dose: 0 mls/hr Documented By: Admin: 01/31/22 18:39 Dose: 200 mls/hr Documented By: AT Ketorolac Tromethamine (Ketorolac 30 Mg/Ml Vial) 15 mg IV NOW ONE Stop: 01/31/22 15:36 Last Admin: 01/31/22 15:53 Dose: 15 mg Documented By: AT Lorazepam (Lorazepam 2 Mg/Ml Inj) 0.5 mg IV NOW ONE Stop: 01/31/22 15:36 Last Admin: 01/31/22 15:43 Dose: Not Given Documented By: AT Methylprednisolone (Methylprednisolone 125 Mg/2 Ml Vial) 125 mg IV NOW ONE Stop: 01/31/22 16:47 Last Admin: 01/31/22 16:57 Dose: 125 mg Documented By: AT Metoclopramide HCl (Metoclopramide 10 Mg/2 Ml Inj) 10 mg IV Q6HR PRN PRN Reason: Nausea And Vomiting Ondansetron HCl (Ondansetron 4 Mg/2 Ml Inj) 4 mg IV NOW ONE Stop: 01/31/22 13:33 Last Admin: 01/31/22 13:50 Dose: 4 mg Documented By: AT Promethazine HCl (Promethazine 25 Mg Tablet) 25 mg PO NOW ONE Stop: 01/31/22 16:47 Last Admin: 01/31/22 17:11 Dose: 25 mg Documented By: AT Consultations Consultation #1: Dr. Frederick, hospitalist accepts for observation Vital Signs Vital signs: Vital Signs - 8 hr 01/31/22 13:24 01/31/22 13:59 01/31/22 14:00 Temperature 97.7 F Pulse Rate 130 H 113 H Respiratory Rate 20 12 Blood Pressure 139/68 145/95 H Pulse Oximetry 97 99 Oxygen Delivery Method Room Air 01/31/22 14:00 01/31/22 14:30 01/31/22 14:30 Temperature Pulse Rate 113 H 119 H Respiratory Rate 16 22 Blood Pressure 145/82 H Pulse Oximetry 97 93 Oxygen Delivery Method 01/31/22 15:00 01/31/22 15:00 01/31/22 15:30 Temperature Pulse Rate 121 H 147 H Respiratory Rate 19 Blood Pressure 125/73 Pulse Oximetry 99 Oxygen Delivery Method 01/31/22 15:59 01/31/22 15:59 01/31/22 16:00 Temperature Pulse Rate 109 H Respiratory Rate Blood Pressure 136/85 140/88 Pulse Oximetry 97 Oxygen Delivery Method 01/31/22 16:00 01/31/22 16:30 01/31/22 16:30 Temperature Pulse Rate 109 H 118 H Respiratory Rate 19 12 Blood Pressure 146/83 H Pulse Oximetry 97 96 Oxygen Delivery Method Room Air Room Air 01/31/22 17:00 01/31/22 17:00 01/31/22 17:30 Temperature Pulse Rate 101 H Respiratory Rate 26 H Blood Pressure 155/85 H 143/67 H Pulse Oximetry 98 Oxygen Delivery Method 01/31/22 17:30 01/31/22 18:00 01/31/22 18:30 Temperature Pulse Rate 96 H 93 H 95 H Respiratory Rate 20 9 L 21 Blood Pressure Pulse Oximetry 98 96 96 Oxygen Delivery Method Room Air 01/31/22 18:39 01/31/22 18:39 Temperature Pulse Rate 94 H Respiratory Rate 14 Blood Pressure 124/68 Pulse Oximetry 97 Oxygen Delivery Method MDM - Nausea/Vomiting/Diarrhea Lab Data Result diagrams: 01/31/22 13:43 01/31/22 13:43 Labs: Lab Results 01/31/22 01/31/22 01/31/22 Range/Units 13:30 13:30 13:43 WBC Cancelled 15.5 H RBC Cancelled 4.45 Hgb Cancelled 13.9 Hct Cancelled 39.8 MCV Cancelled 89.4 MCH Cancelled 31.2 MCHC Cancelled 34.9 RDW Cancelled 13.7 Plt Count Cancelled 486 H Neut % (Auto) Cancelled 88.4 H Lymph % (Auto) Cancelled 4.3 L [place] % (Auto) Cancelled 6.4 Eos % (Auto) Cancelled 0.6 L Baso % (Auto) Cancelled 0.3 Neut # (Auto) Cancelled 52321 H Lymph # (Auto) Cancelled 700 L [place] # (Auto) Cancelled 1000 H Eos # (Auto) Cancelled 100 Baso # (Auto) Cancelled 0 Sodium Cancelled Potassium Cancelled Chloride Cancelled Carbon Dioxide Cancelled BUN Cancelled Creatinine Cancelled Estimated GFR Cancelled BUN/Creatinine Ratio Cancelled Glucose Cancelled Lactate (0.7-2.1) mmol/L Calcium Cancelled Total Bilirubin Cancelled AST Cancelled ALT Cancelled Alkaline Phosphatase Cancelled Total Protein Cancelled Albumin Cancelled Globulin Cancelled Albumin/Globulin Ratio Cancelled Lipase Cancelled Procalcitonin (<0.5) ng/mL SARS-CoV-2 (PCR) (Negative) 01/31/22 01/31/22 01/31/22 Range/Units 13:43 13:43 13:43 WBC RBC Hgb Hct MCV MCH MCHC RDW Plt Count Neut % (Auto) Lymph % (Auto) [place] % (Auto) Eos % (Auto) Baso % (Auto) Neut # (Auto) Lymph # (Auto) [place] # (Auto) Eos # (Auto) Baso # (Auto) Sodium 137 Potassium 3.2 L Chloride 97 L Carbon Dioxide 25 BUN 14 Creatinine 0.86 Estimated GFR > 60 BUN/Creatinine Ratio 16.3 Glucose 214 H Lactate 2.5 H (0.7-2.1) mmol/L Calcium 10.1 Total Bilirubin 0.8 AST 22 ALT 13 Alkaline Phosphatase 100 Total Protein 7.6 Albumin 4.3 Globulin 3.3 Albumin/Globulin Ratio 1.3 Lipase 37 Procalcitonin 0.08 (<0.5) ng/mL SARS-CoV-2 (PCR) (Negative) 01/31/22 01/31/22 Range/Units 14:29 17:22 WBC RBC Hgb Hct MCV MCH MCHC RDW Plt Count Neut % (Auto) Lymph % (Auto) [place] % (Auto) Eos % (Auto) Baso % (Auto) Neut # (Auto) Lymph # (Auto) [place] # (Auto) Eos # (Auto) Baso # (Auto) Sodium Potassium Chloride Carbon Dioxide BUN Creatinine Estimated GFR BUN/Creatinine Ratio Glucose Lactate 0.9 (0.7-2.1) mmol/L Calcium Total Bilirubin AST ALT Alkaline Phosphatase Total Protein Albumin Globulin Albumin/Globulin Ratio Lipase Procalcitonin (<0.5) ng/mL SARS-CoV-2 (PCR) Negative (Negative) Imaging Data CT scan - chest: Radiologist's Impression: Close Chest CTA (Signed) Larisa Ha - 01/31/22 Abdomen/Pelvis CT (Signed) Larisa Ha - 01/31/22 Lumbar Spine X-Ray (Signed) Rick Ferrer - 01/25/22 Telemetry Strips 01/06/22 Outside EKG 01/06/[address] (Signed) Rick Ferrer - 01/02/22 Lumbar Spine MRI (Signed) Kaleigh Lopez - 12/06/21 [facility]?[place] [id number] CT Scan Report Signed Patient: Svetlana Gonzalez MR#: [id number] : 1955 Acct:[id number] Age/Sex: 66 / F Date of Service: 01/31/22 Loc: ED Accession Number: [id number] ?? Procedure: CT angio chest PE protocol Ordering Provider: Sharri Serna D.O. PROCEDURE:? CT ANGIO CHEST PE PROTOCOL ? INDICATIONS:? n/v post-iop. back pain, s/p lami 01/28 ? TECHNIQUE:? After the administration of intravenous contrast, 2 mm thick sections acquired from the pulmonary apices to the posterior costophrenic angles.? 3-dimensional maximum intensity projection (MIP) coronal and sagittal reformats were then acquired through the thorax.? For radiation dose reduction, the following was used:? automated exposure control, adjustment of mA and/or kV according to patient size.? ? COMPARISON:? None. ? FINDINGS:? Image quality:? Excellent.? ? Pulmonary arteries:? Pulmonary arteries are normal in size, and demonstrate no intraluminal filling defects to suggest central pulmonary embolism.? ? Lungs and pleura:? Lungs are clear.? No pleural effusions or pneumothorax.? Central and peripheral airways are patent.? ? Mediastinum:? Heart size is normal, without pericardial effusion.? There is mild calcification of the coronary vasculature.? No mediastinal or hilar adenopathy.? Thoracic aorta is normal in caliber and enhancement.? Esophagus is normal in caliber.? There is a small hiatal hernia.? There is moderate thickening of the distal esophagus.? without hiatal hernia.? ? Bones and chest wall:? No suspicious bony lesions.? Ribs and thoracic spine appear intact throughout.? Thyroid gland is within normal.? No axillary or supraclavicular adenopathy.? ? ? Abdomen:? Visualized portions of the upper abdomen demonstrate mildly thickened and distended small bowel loops within the left hemiabdomen. ? IMPRESSION:? 1. Pulmonary embolus. 2. Coronary artery disease. 3. Small hiatal hernia with distal esophageal thickening; initial further assessment with endoscopy is recommended. 4. Mildly thickened small bowel loop within the left upper quadrant of the abdomen, consistent with ischemia, infection, or inflammation. ? ? Dictated by: Larisa Ha M.D. on 01/31/2022 at 18:16 ? ? Approved by: Larisa Ha M.D. on 01/31/2022 at 18:19?? CT scan - abdomen/pelvis: Radiologist's Impression: [address] [address] [address] Scan Report Signed Patient: Svetlana Gonzalez MR#: [id number] : 1955 Acct:[id number] Age/Sex: 66 / F Date of Service: 01/31/22 Loc: ED Accession Number: [id number] ?? Procedure: CT abdomen pelvis w con Ordering Provider: Sharri Serna D.O. PROCEDURE:? CT ABDOMEN PELVIS W CON ? INDICATIONS:? n/v post-iop. back pain, s/p lami 01/28 ? TECHNIQUE:? After the administration of intravenous contrast, axial sections acquired from the lung bases to the pubic symphysis.? Coronal and sagittal reformats were performed.? For radiation dose reduction, the following was used:? automated exposure control, adjustment of mA and/or kV according to patient size.? ? COMPARISON:? None. ? FINDINGS:? Image quality:? Excellent.? ? Lung bases:? Unremarkable. Heart:? No significant findings. ? ABDOMEN: Liver:? Unremarkable.? ? Gallbladder:? Is within normal limits? ? Biliary ducts:? Unremarkable.? ? Pancreas:? Unremarkable.? ? Spleen:? Unremarkable.? ? Adrenal Glands:? Unremarkable.? ? Kidneys and Ureters:? Unremarkable.? ? ? Stomach and Bowel:? Stomach is within normal limits.? Multiple moderately thickened and distended small bowel loops within the left hemiabdomen are present.? Appendix not seen.? No evidence of appendicitis. Peritoneum:? No abnormal intraperitoneal fluid.? No free air.? ? Ventral Wall: ? No hernias.? Abdominal Nodes:? No retroperitoneal or mesenteric adenopathy by size criteria.? Vessels:? Aorta and inferior vena cava are normal in size.? ? PELVIS: Pelvic Organs:? Unremarkable.? ? Bladder:? Decompressed. Pelvic Nodes: No enlarged lymph nodes.? Miscellaneous: No hernias are seen. ? ? ? Bones:? L3-L5 fusion has been performed. ? ? IMPRESSION:? 1. Thickened small bowel loops within the left hemiabdomen, consistent with ischemia, infection, or inflammation. 2. Mild distention of small bowel loops, consistent with obstruction or ileus.? ? Dictated by: Larisa Ha M.D. on 01/31/2022 at 18:14 ? ? Approved by: Larisa Ha M.D. on 01/31/2022 at 18:15?? ECG Data Attestation: I personally reviewed and interpreted this ECG as follows: Interpretation: Sinus tachycardia rate of 1 19p are 148 QRS 88, QTC of 458. Nonspecific change. MDM Narrative Medical decision making narrative: This is a 66-year-old female who complains of vomiting that is persistent starting with nausea last night and into today patient had recent back surgery. She is significantly tachycardic even after L of fluids with minimal change, there could be some component of withdrawal she is been on narcotics recently but diagnosis of PE was entertained, sepsis as well she is been afebrile but with tachycardia she has a white count lactate was slightly elevated, procalcitonin was ordered is negative blood cultures were obtained. Patient attempted to give urine sample but it was dirty with stool accidentally. Attempting to get a 2nd urine sample. Imaging of abdomen pelvis was included as well which is able to visualize the L-spine no obvious signs of infection on this finding of the lumbar spine but patient does have changes with small bowel for possible ileus versus ischemic changes. Lactate improved with fluids making ischemic less likely. Patient was covered with IV antibiotics to be quite tachycardic and continued with fluids. Patient meets septic criteria unclear if this is more dehydration with ileus versus infection and was discussed with hospitalist who kindly accepts. She was covered with dose of broad-spectrum antibiotics. Patient feels improved and is not actively vomiting at this time, heart rate has made it into the 90s but not consistently, she is not been hypotensive. Discharge Plan Departure Patient Disposition: Admitted as Observation Clinical Impression: Sepsis, Vomiting, Thickened small bowel, History of back surgery Admit Date/Time: 01/31/22 18:39 Admit Provider: Danny Frederick
[2022-01-31] MEDS: KETOROLAC 30 MG/ML VIAL 15 MG IV (15:53)
[2022-01-31] MEDS: diphenhydrAMINE 50 MG/ML VIAL 25 MG IV (15:53)
[2022-01-31 16:03] LABS: Lactate (Lactic Acid) 2.5 mmol/L (0.7-2.1)
[2022-01-31 16:20] LABS: Procalcitonin 0.08 ng/mL (<0.5)
--- NOTE | 2022-01-31 16:45 | DI.CT.S_ITS ---
PROCEDURE: CT ABDOMEN PELVIS W CON INDICATIONS: n/v post-iop. back pain, s/p lami 01/28 TECHNIQUE: After the administration of intravenous contrast, axial sections acquired from the lung bases to the pubic symphysis. Coronal and sagittal reformats were performed. For radiation dose reduction, the following was used: automated exposure control, adjustment of mA and/or kV according to patient size. COMPARISON: None. FINDINGS: Image quality: Excellent. Lung bases: Unremarkable. Heart: No significant findings. ABDOMEN: Liver: Unremarkable. Gallbladder: Is within normal limits Biliary ducts: Unremarkable. Pancreas: Unremarkable. Spleen: Unremarkable. Adrenal Glands: Unremarkable. Kidneys and Ureters: Unremarkable. Stomach and Bowel: Stomach is within normal limits. Multiple moderately thickened and distended small bowel loops within the left hemiabdomen are present. Appendix not seen. No evidence of appendicitis. Peritoneum: No abnormal intraperitoneal fluid. No free air. Ventral Wall: No hernias. Abdominal Nodes: No retroperitoneal or mesenteric adenopathy by size criteria. Vessels: Aorta and inferior vena cava are normal in size. PELVIS: Pelvic Organs: Unremarkable. Bladder: Decompressed. Pelvic Nodes: No enlarged lymph nodes. Miscellaneous: No hernias are seen. Bones: L3-L5 fusion has been performed. IMPRESSION: 1. Thickened small bowel loops within the left hemiabdomen, consistent with ischemia, infection, or inflammation. 2. Mild distention of small bowel loops, consistent with obstruction or ileus. Dictated by: Larisa Ha M.D. on 01/31/2022 at 18:14 Approved by: Larisa Ha M.D. on 01/31/2022 at 18:15
--- NOTE | 2022-01-31 16:45 | DI.CT.S_ITS ---
PROCEDURE: CT ANGIO CHEST PE PROTOCOL INDICATIONS: n/v post-iop. back pain, s/p lami 01/28 TECHNIQUE: After the administration of intravenous contrast, 2 mm thick sections acquired from the pulmonary apices to the posterior costophrenic angles. 3-dimensional maximum intensity projection (MIP) coronal and sagittal reformats were then acquired through the thorax. For radiation dose reduction, the following was used: automated exposure control, adjustment of mA and/or kV according to patient size. COMPARISON: None. FINDINGS: Image quality: Excellent. Pulmonary arteries: Pulmonary arteries are normal in size, and demonstrate no intraluminal filling defects to suggest central pulmonary embolism. Lungs and pleura: Lungs are clear. No pleural effusions or pneumothorax. Central and peripheral airways are patent. Mediastinum: Heart size is normal, without pericardial effusion. There is mild calcification of the coronary vasculature. No mediastinal or hilar adenopathy. Thoracic aorta is normal in caliber and enhancement. Esophagus is normal in caliber. There is a small hiatal hernia. There is moderate thickening of the distal esophagus. without hiatal hernia. Bones and chest wall: No suspicious bony lesions. Ribs and thoracic spine appear intact throughout. Thyroid gland is within normal. No axillary or supraclavicular adenopathy. Abdomen: Visualized portions of the upper abdomen demonstrate mildly thickened and distended small bowel loops within the left hemiabdomen. IMPRESSION: 1. Pulmonary embolus. 2. Coronary artery disease. 3. Small hiatal hernia with distal esophageal thickening; initial further assessment with endoscopy is recommended. 4. Mildly thickened small bowel loop within the left upper quadrant of the abdomen, consistent with ischemia, infection, or inflammation. Dictated by: Larisa Ha M.D. on 01/31/2022 at 18:16 Approved by: Larisa Ha M.D. on 01/31/2022 at 18:19
[2022-01-31] MEDS: methylPREDNISolone 125 MG/2 ML VIAL IV (16:57)
[2022-01-31] MEDS: HYDROMORPHONE 1 MG INJ IV (16:57)
[2022-01-31] MEDS: PROMETHAZINE 25 MG TABLET PO (17:11)
[2022-01-31 17:47] LABS: Reflexed Lactate in 2 Hours Y
[2022-01-31 18:01] LABS: Lactate 2HR (Lactic Acid Rflx) 0.9 mmol/L (0.7-2.1)
[2022-01-31] MEDS: SODIUM CHLORIDE 0.9% 1,000 ML 200 ML IV (18:11)
[2022-01-31] MEDS: PIPERACILLIN/TAZO 4.5 GM in SODIUM CHLORIDE 0.9% 100 ML IV (18:39)
[2022-01-31 19:27] LABS: Bacteria Urine None Seen; Culture Indicated Urine Cult Not Indicated; Mucus Urine 1+ (Negative); RBC Urine 0-1/HPF (0-5/HPF); Squamous Epithelial Cell Urine 1-5 /HPF (0-5/HPF); WBC Urine 1-5/HPF (0-5/HPF)
[2022-01-31] MEDS: POTASSIUM CHLORIDE IN WATER 10 MEQ/100 ML PIGGYBACK 100 MEQ IV ×2 (20:39→22:36)
[2022-01-31] MEDS: SODIUM CHLORIDE 0.9% 1,000 ML 100 ML IV (21:06)
[2022-01-31] MEDS: MORPHINE 4 MG/ML INJ IV (21:50)
[2022-01-31] MEDS: PIPERACILLIN/TAZO 3.375 GM in SODIUM CHLORIDE 0.9% 100 ML IV (22:36)
[2022-01-31] MEDS: PROCHLORPERAZINE 10 MG/2 ML VIAL 5 MG IV (22:57)
[2022-02-01] VITALS: BP 130/71; PULSE 95; RESP 18; TEMP 36.8; O2SAT 97
[2022-02-01] MEDS: MORPHINE 4 MG/ML INJ IV ×5 (00:02→20:47)
[2022-02-01] MEDS: POTASSIUM CHLORIDE IN WATER 10 MEQ/100 ML PIGGYBACK 100 MEQ IV ×2 (00:25→01:49)
--- NOTE | 2022-02-01 01:22 | P.HP_ITS ---
History of Present Illness History of Present Illness Date Patient Seen: 01/31/22 Time Patient Seen: 19:30 Chief complaint: POST OP PAIN Narrative: Ms. Gonzalez is a 66W with PMH fibromyalgia, previous colitis, previous c diff infection, and was just discharged after surgery for lumbar stenosis and discharge three days ago now presents with nausea, vomiting, and abdominal pain. She has also been having liquid stools. No blood in vomit or stool. She was discharged to SNF and states she was not regularly getting pain medications. She thought that her initial episodes of vomiting may have been secondary to pain. She has not had fevers, but has had chills and rigors. She has not had cough, shortness of breath, chest pain. She has had colitis in the past and has had EGD/colo and was told she had an nonspecific colitis. She has not been diagnosed with IBD. She has a remote history of c diff infection, and has not taken antibiotics. In the ED workup was done, vitals was notable for afebrile, heart rate in the 130s, blood pressure normal. Labs notable for WBC 15.5, hgb 13.9, plts 486. Creatinine 0.86. Lactate initially 2.5, then 0.9. UA with no evidence of infection. CT abdomen/pelvis shows thick small bowel loops with mild distention. CTA shows thick esophagus. She was ordered for pain medications and IV zosyn and admitted for further treatment. Family history: no history of IBD Patient History Medical History Anxiety Colitis, nonspecific Depression Easy bruisability Fibromyalgia History of revision of total replacement of left knee joint (07/2008) History of revision of total replacement of right knee joint (~2005) HLD (hyperlipidemia) Infection of mandible (2019) Loose left total knee arthroplasty (2003) MRSA (methicillin resistant Staphylococcus aureus) PTSD (post-traumatic stress disorder) Sciatica Spinal stenosis Surgical History History of arthroplasty of right knee (~2003) History of ear surgery History of lumbar spinal fusion (05/2019) History of nasal surgery Hx of arthroscopy of right knee Hx of laminectomy (~2017) Hx of repair of right rotator cuff Family & Social History Social History: household members none Safety & Behavioral: Feels Safe in Current Yes Environment Been Physically Hurt or No Threatened By a Person Tobacco & Substance use: Smoking Status Former smoker alcohol intake former alcohol intake frequency holiday/special occasion Substance Use Type marijuana Meds Home Medications and Allergies Home Medications Medication Instructions Recorded Confirmed Type acetaminophen 500 mg capsule 1,000 mg PO Q6H PRN Pain 01/15/22 01/31/22 History budesonide 3 mg 9 mg PO QAM 01/15/22 01/31/22 History capsule,delayed,extended release bupropion HCl 300 mg 24 hr tablet, 150 mg PO QAM 01/15/22 01/31/22 History extended release escitalopram oxalate 20 mg tablet 20 mg PO DAILY 01/15/22 01/31/22 History (Lexapro) esomeprazole magnesium 20 mg 40 mg PO DAILY 01/15/22 01/25/22 History capsule,delayed release gabapentin 400 mg capsule 400 mg PO SEEINSTR 01/15/22 01/31/22 History oxycodone-acetaminophen 10 mg-325 1 tab PO BID-TID 01/15/22 01/31/22 History mg tablet promethazine 25 mg tablet 25 mg PO Q4-6H PRN Nausea 01/15/22 01/31/22 History simvastatin 40 mg tablet 40 mg PO BEDTIME 01/15/22 01/31/22 History trazodone 150 mg tablet 150 mg PO BEDTIME 01/15/22 01/31/22 History valacyclovir 500 mg tablet 500 mg PO BID 01/15/22 01/31/22 History zolpidem 10 mg tablet (Ambien) 10 mg PO BEDTIME 01/15/22 01/25/22 History diphenhydramine HCl 25 mg capsule 50 - 100 mg PO BEDTIME PRN Sleep 01/18/22 01/25/22 History (Benadryl) docusate sodium 100 mg capsule 100 mg PO BID PRN constipation #60 01/28/22 01/31/22 Rx caps hydromorphone 2 mg tablet 2 mg PO Q3H PRN pain, severe #30 01/28/22 01/31/22 Rx tabs hydroxyzine pamoate 25 mg capsule 25 mg PO Q4HR PRN Muscle Spasm 01/28/22 01/31/22 Rx #120 caps methocarbamol 500 mg tablet 500 mg PO TID PRN Muscle Spasm #60 01/28/22 01/31/22 Rx tabs oxycodone 5 mg tablet 5 mg PO Q4H PRN pain, moderate #60 01/28/22 01/31/22 Rx tabs zolpidem 10 mg tablet 10 mg PO BEDTIME PRN insomnia #14 01/28/22 01/31/22 Rx tabs Allergies Allergy/AdvReac Type Severity Reaction Status Date / Time Iodinated Contrast Media Allergy Mild Rash Verified 01/25/22 12:14 rifampin Allergy Mild Rash Verified 01/25/22 12:14 vancomycin Allergy Mild Rash Verified 01/25/22 12:14 Review of Systems Review of Systems Narrative: 14 systems reviewed and negative aside from what is noted in HPI Exam Vital Signs (past 8 hours): - 01/31/22 17:30 01/31/22 17:30 01/31/22 18:00 Temperature Pulse Rate 96 H 93 H Respiratory Rate 20 9 L Blood Pressure 143/67 H Pulse Oximetry 98 96 Oxygen Delivery Method Room Air 01/31/22 18:30 01/31/22 18:39 01/31/22 18:39 Temperature Pulse Rate 95 H 94 H Respiratory Rate 21 14 Blood Pressure 124/68 Pulse Oximetry 96 97 Oxygen Delivery Method 01/31/22 19:00 01/31/22 19:30 01/31/22 20:52 Temperature 99.2 F Pulse Rate 92 H 100 H 84 Respiratory Rate 16 25 H 17 Blood Pressure 131/67 Pulse Oximetry 96 96 98 Oxygen Delivery Method 01/31/22 22:26 02/01/22 00:00 Temperature 98.2 F Pulse Rate 95 H Respiratory Rate 18 Blood Pressure 130/71 Pulse Oximetry 97 Oxygen Delivery Method Room Air Oxygen Delivery Method Room Air Narrative Exam Narrative: GEN: appears quite uncomfortable HEENT: moist mucous membranes, PERRL NECK: trachea midline, no JVD CV: tachycardic PULM: clear bilaterally, no wheezes, rhonchi, rales ABD: soft, very tender to palpation, diminished bowel sounds EXT: warm and well perfused with no edema NEURO: awake, alert, oriented, no focal deficits Objective Labs Result Diagrams: 01/31/22 13:43 01/31/22 13:43 Labs: Laboratory Results - last 24 hr 01/31/22 01/31/22 01/31/22 13:30 13:30 13:43 WBC Cancelled 15.5 H RBC Cancelled 4.45 Hgb Cancelled 13.9 Hct Cancelled 39.8 MCV Cancelled 89.4 MCH Cancelled 31.2 MCHC Cancelled 34.9 RDW Cancelled 13.7 Plt Count Cancelled 486 H Neut % (Auto) Cancelled 88.4 H Lymph % (Auto) Cancelled 4.3 L [place] % (Auto) Cancelled 6.4 Eos % (Auto) Cancelled 0.6 L Baso % (Auto) Cancelled 0.3 Neut # (Auto) Cancelled 57093 H Lymph # (Auto) Cancelled 700 L [place] # (Auto) Cancelled 1000 H Eos # (Auto) Cancelled 100 Baso # (Auto) Cancelled 0 Sodium Cancelled Potassium Cancelled Chloride Cancelled Carbon Dioxide Cancelled BUN Cancelled Creatinine Cancelled Estimated GFR Cancelled BUN/Creatinine Ratio Cancelled Glucose Cancelled Lactate Calcium Cancelled Total Bilirubin Cancelled AST Cancelled ALT Cancelled Alkaline Phosphatase Cancelled Total Protein Cancelled Albumin Cancelled Globulin Cancelled Albumin/Globulin Ratio Cancelled Lipase Cancelled Procalcitonin Urine RBC Urine WBC Ur Squamous Epith Cells Urine Bacteria Urine Mucus Ur Culture Indicated? SARS-CoV-2 (PCR) 01/31/22 01/31/22 01/31/22 13:43 13:43 13:43 WBC RBC Hgb Hct MCV MCH MCHC RDW Plt Count Neut % (Auto) Lymph % (Auto) [place] % (Auto) Eos % (Auto) Baso % (Auto) Neut # (Auto) Lymph # (Auto) [place] # (Auto) Eos # (Auto) Baso # (Auto) Sodium 137 Potassium 3.2 L Chloride 97 L Carbon Dioxide 25 BUN 14 Creatinine 0.86 Estimated GFR > 60 BUN/Creatinine Ratio 16.3 Glucose 214 H Lactate 2.5 H Calcium 10.1 Total Bilirubin 0.8 AST 22 ALT 13 Alkaline Phosphatase 100 Total Protein 7.6 Albumin 4.3 Globulin 3.3 Albumin/Globulin Ratio 1.3 Lipase 37 Procalcitonin 0.08 Urine RBC Urine WBC Ur Squamous Epith Cells Urine Bacteria Urine Mucus Ur Culture Indicated? SARS-CoV-2 (PCR) 01/31/22 01/31/22 01/31/22 14:29 17:22 19:00 WBC RBC Hgb Hct MCV MCH MCHC RDW Plt Count Neut % (Auto) Lymph % (Auto) [place] % (Auto) Eos % (Auto) Baso % (Auto) Neut # (Auto) Lymph # (Auto) [place] # (Auto) Eos # (Auto) Baso # (Auto) Sodium Potassium Chloride Carbon Dioxide BUN Creatinine Estimated GFR BUN/Creatinine Ratio Glucose Lactate 0.9 Calcium Total Bilirubin AST ALT Alkaline Phosphatase Total Protein Albumin Globulin Albumin/Globulin Ratio Lipase Procalcitonin Urine RBC 0-1/hpf Urine WBC 1-5/hpf Ur Squamous Epith Cells 1-5 /hpf Urine Bacteria None seen Urine Mucus 1+ H Ur Culture Indicated? Cult not indicated SARS-CoV-2 (PCR) Negative Assessment & Plan Assessment & Plan narrative: Ms. Gonzalez is a 66W with PMH fibromyalgia, recent spinal surgery who presents with abdominal pain found to have colitis 1. Acute colitis -etiology not clear -CT showed thick small bowel wall, and dilated bowel loops -questionable if has ileus -possibly infectious will order stool cultures and start zosyn -check c diff, and empirically start PO vanco, dc if negative -ordered pain medications and anti-nausea medications -keep NPO for now 2. s/p lumbar laminectomy -continue with pain medications 3. Fibromyalgia, PTSD -continue lexapro CODE: DNR Proxy: Tereza Davis, daughter I have utilized all available resources to reconcile the patient's home medications Time Spent With Patient Critical Care time: I spent a total of [] minutes of critical care time on this patient's care today; this time is exclusive of procedural time. Quality VTE Deep Vein Thrombosis/Pulmonary Embolism Present on Admission: No
[2022-02-01] MEDS: ONDANSETRON 4 MG/2 ML INJ IV ×2 (01:52→08:23)
[2022-02-01 05:16] LABS: Add Manual Diff / Slide Review NO; Basophils Absolute Auto 0 /uL (0-100); Basophils Percent Auto 0.1 % (0-2); Eosinophils Absolute Auto 0 /uL (0-450); Hematocrit 30.6 % (36-46); Hemoglobin 10.6 g/dL (12.0-16.0); Lymphocytes Absolute Auto 500 /uL (1100-4500); Lymphocytes Percent Auto 6.5 % (25-40); Mean Corpuscular HGB Conc 34.8 % (30-36); Mean Corpuscular Hemoglobin 31.2 PG (26-34); Mean Corpuscular Volume 89.7 fL (80-100); Monocytes Absolute Auto 300 /uL (0-900); Monocytes Percent Auto 4.5 % (3-14); Neutrophils Absolute Auto 6800 /uL (1500-7000); Neutrophils Percent Auto 88.9 % (50-75); Platelet Count 297 X10^3/uL (150-400); Red Blood Cell Count 3.41 X10^6/uL (4.0-5.2); Red Cell Distribution Width 13.8 % (11.6-14.8); White Blood Cell Count 7.6 X10^3/uL (4.5-11.0)
--- NOTE | 2022-02-01 05:17 | PC.NURSE ---
Shift Note At 2100, patient brought in from ED by stretcher accompanied by RN, alert and orientedx4, still complaining of nauseous and body aches, denies shortness of breath, at room air, vital signs are stable. Breath sounds are clear to diminish bilaterally, active bowel tones. Skin is generally intact, with post-op dressing at lower back as patient had recent back surgery. Patient was able to get up with one person assist and uses bedside commode. Patient still complained of nausea and pain despite due zofran and pain meds given, provider was notified and ordered compazine and increased the frequency of morphine. Will continue to monitor.
[2022-02-01 05:21] LABS: Magnesium 1.5 mg/dL (1.6-2.3)
[2022-02-01 05:23] LABS: BUN Creatinine Ratio 18.8 (6-22); Blood Urea Nitrogen 12 mg/dL (7-17); Calcium 8.4 mg/dL (8.4-10.2); Carbon Dioxide 26 mmol/L (22-32); Chloride 109 mmol/L (98-107); Estimated Glomerular Filt Rate > 60 mL/min (>60); Glucose 138 mg/dL (80-110); HEMOLYSIS < 15 (0-50); Potassium 3.9 mmol/L (3.4-5.1); Sodium 139 mmol/L (137-145)
[2022-02-01] MEDS: SODIUM CHLORIDE 0.9% 1,000 ML 100 ML IV ×2 (05:48→23:20)
[2022-02-01] MEDS: PROCHLORPERAZINE 10 MG/2 ML VIAL 5 MG IV (05:48)
[2022-02-01] MEDS: PIPERACILLIN/TAZO 3.375 GM in SODIUM CHLORIDE 0.9% 100 ML IV (05:49)
[2022-02-01 06:00] VITALS: BP 125/65; PULSE 72; RESP 18; TEMP 37.1; O2SAT 98
[2022-02-01 07:20] LABS: Clostridium Difficile Tox PCR Negative for C. diff (Negative)
[2022-02-01 07:50] VITALS: BP 131/75; PULSE 84; RESP 16; TEMP 36.8; O2SAT 98
[2022-02-01] MEDS: ENOXAPARIN 40 MG/0.4 ML SYRINGE SUBCUT (08:23)
--- NOTE | 2022-02-01 08:39 | PM.PN.1 ---
Subjective Subjective Date Patient Seen: 02/01/22 Time Patient Seen: 10:00 Interval history: Patient feels like crap. Still having NV and diarrhea with diffuse abd pain. No melena or bloody in stool. Exam Vital Signs (past 8 hours): - 02/01/22 06:00 02/01/22 07:50 Temperature 98.8 F 98.2 F Pulse Rate 72 84 Respiratory Rate 18 16 Blood Pressure 125/65 131/75 Pulse Oximetry 98 98 Oxygen Delivery Method Room Air Narrative Exam Narrative: GEN: appears quite uncomfortable HEENT: moist mucous membranes, PERRL NECK: trachea midline, no JVD CV: tachycardic PULM: clear bilaterally, no wheezes, rhonchi, rales ABD: soft, very tender to palpation, diminished bowel sounds EXT: warm and well perfused with no edema NEURO: awake, alert, oriented, no focal deficits Objective Labs Result Diagrams: 02/01/22 04:51 02/01/22 04:51 Labs: Laboratory Results - last 24 hr 01/31/22 01/31/22 01/31/22 13:30 13:30 13:43 WBC Cancelled 15.5 H RBC Cancelled 4.45 Hgb Cancelled 13.9 Hct Cancelled 39.8 MCV Cancelled 89.4 MCH Cancelled 31.2 MCHC Cancelled 34.9 RDW Cancelled 13.7 Plt Count Cancelled 486 H Neut % (Auto) Cancelled 88.4 H Lymph % (Auto) Cancelled 4.3 L [place] % (Auto) Cancelled 6.4 Eos % (Auto) Cancelled 0.6 L Baso % (Auto) Cancelled 0.3 Neut # (Auto) Cancelled 97724 H Lymph # (Auto) Cancelled 700 L [place] # (Auto) Cancelled 1000 H Eos # (Auto) Cancelled 100 Baso # (Auto) Cancelled 0 Sodium Cancelled Potassium Cancelled Chloride Cancelled Carbon Dioxide Cancelled BUN Cancelled Creatinine Cancelled Estimated GFR Cancelled BUN/Creatinine Ratio Cancelled Glucose Cancelled Lactate Calcium Cancelled Magnesium Total Bilirubin Cancelled AST Cancelled ALT Cancelled Alkaline Phosphatase Cancelled Total Protein Cancelled Albumin Cancelled Globulin Cancelled Albumin/Globulin Ratio Cancelled Lipase Cancelled Procalcitonin Urine RBC Urine WBC Ur Squamous Epith Cells Urine Bacteria Urine Mucus Ur Culture Indicated? C. difficile Tox (PCR) SARS-CoV-2 (PCR) 01/31/22 01/31/22 01/31/22 13:43 13:43 13:43 WBC RBC Hgb Hct MCV MCH MCHC RDW Plt Count Neut % (Auto) Lymph % (Auto) [place] % (Auto) Eos % (Auto) Baso % (Auto) Neut # (Auto) Lymph # (Auto) [place] # (Auto) Eos # (Auto) Baso # (Auto) Sodium 137 Potassium 3.2 L Chloride 97 L Carbon Dioxide 25 BUN 14 Creatinine 0.86 Estimated GFR > 60 BUN/Creatinine Ratio 16.3 Glucose 214 H Lactate 2.5 H Calcium 10.1 Magnesium Total Bilirubin 0.8 AST 22 ALT 13 Alkaline Phosphatase 100 Total Protein 7.6 Albumin 4.3 Globulin 3.3 Albumin/Globulin Ratio 1.3 Lipase 37 Procalcitonin 0.08 Urine RBC Urine WBC Ur Squamous Epith Cells Urine Bacteria Urine Mucus Ur Culture Indicated? C. difficile Tox (PCR) SARS-CoV-2 (PCR) 01/31/22 01/31/22 01/31/22 14:29 17:22 19:00 WBC RBC Hgb Hct MCV MCH MCHC RDW Plt Count Neut % (Auto) Lymph % (Auto) [place] % (Auto) Eos % (Auto) Baso % (Auto) Neut # (Auto) Lymph # (Auto) [place] # (Auto) Eos # (Auto) Baso # (Auto) Sodium Potassium Chloride Carbon Dioxide BUN Creatinine Estimated GFR BUN/Creatinine Ratio Glucose Lactate 0.9 Calcium Magnesium Total Bilirubin AST ALT Alkaline Phosphatase Total Protein Albumin Globulin Albumin/Globulin Ratio Lipase Procalcitonin Urine RBC 0-1/hpf Urine WBC 1-5/hpf Ur Squamous Epith Cells 1-5 /hpf Urine Bacteria None seen Urine Mucus 1+ H Ur Culture Indicated? Cult not indicated C. difficile Tox (PCR) SARS-CoV-2 (PCR) Negative 02/01/22 02/01/22 02/01/22 04:51 04:51 04:51 WBC 7.6 D RBC 3.41 L Hgb 10.6 L Hct 30.6 L MCV 89.7 MCH 31.2 MCHC 34.8 RDW 13.8 Plt Count 297 Neut % (Auto) 88.9 H Lymph % (Auto) 6.5 L [place] % (Auto) 4.5 Eos % (Auto) 0.0 L Baso % (Auto) 0.1 Neut # (Auto) 6800 Lymph # (Auto) 500 L [place] # (Auto) 300 Eos # (Auto) 0 Baso # (Auto) 0 Sodium 139 Potassium 3.9 Chloride 109 H Carbon Dioxide 26 BUN 12 Creatinine 0.64 Estimated GFR > 60 BUN/Creatinine Ratio 18.8 Glucose 138 H Lactate Calcium 8.4 Magnesium 1.5 L Total Bilirubin AST ALT Alkaline Phosphatase Total Protein Albumin Globulin Albumin/Globulin Ratio Lipase Procalcitonin Urine RBC Urine WBC Ur Squamous Epith Cells Urine Bacteria Urine Mucus Ur Culture Indicated? C. difficile Tox (PCR) SARS-CoV-2 (PCR) 02/01/22 06:29 WBC RBC Hgb Hct MCV MCH MCHC RDW Plt Count Neut % (Auto) Lymph % (Auto) [place] % (Auto) Eos % (Auto) Baso % (Auto) Neut # (Auto) Lymph # (Auto) [place] # (Auto) Eos # (Auto) Baso # (Auto) Sodium Potassium Chloride Carbon Dioxide BUN Creatinine Estimated GFR BUN/Creatinine Ratio Glucose Lactate Calcium Magnesium Total Bilirubin AST ALT Alkaline Phosphatase Total Protein Albumin Globulin Albumin/Globulin Ratio Lipase Procalcitonin Urine RBC Urine WBC Ur Squamous Epith Cells Urine Bacteria Urine Mucus Ur Culture Indicated? C. difficile Tox (PCR) Negative for c. diff SARS-CoV-2 (PCR) [facility] Medical History Anxiety Colitis, nonspecific Depression Easy bruisability Fibromyalgia History of revision of total replacement of left knee joint (07/2008) History of revision of total replacement of right knee joint (~2005) HLD (hyperlipidemia) Infection of mandible (2019) Loose left total knee arthroplasty (2003) MRSA (methicillin resistant Staphylococcus aureus) PTSD (post-traumatic stress disorder) Sciatica Spinal stenosis Surgical History History of arthroplasty of right knee (~2003) History of ear surgery History of lumbar spinal fusion (05/2019) History of nasal surgery Hx of arthroscopy of right knee Hx of laminectomy (~2017) Hx of repair of right rotator cuff Social History household members: none Smoking Status: Former smoker alcohol intake: former Assessment & Plan Assessment & Plan narrative: Ms. Gonzalez is a 66W with PMH fibromyalgia, recent spinal surgery who presents with abdominal pain, intractable NV and diarrhea from SNF after undergoing laminectomy surgery 1 week ago. 1. Acute colitis secondary to norovirus with intractable NV -stool PCR positive for norovirus, patient just came from [facility] in [place] so we have contacted them to tell them they may have an outbreak -CT showed thick small bowel wall, and dilated bowel loops -questionable if has ileus, however with diarrhea will trial imodium -stop zosyn due to viral colitis -C. diff negative -ordered pain medications and anti-nausea medications -liquid diet and advance as tolerated -contact isolation -zofran and phenergan PRN for NV 2. s/p lumbar laminectomy -by Dr. Brice 1 week prior to admission -continue with pain medications 3. Fibromyalgia, PTSD -continue lexapro, methocarbamol, wellbutrin and gabapentin 4. HLD, chronic -continue home simvastatin 5. Anxiety, chronic -continue home vistaril 6. Insomnia, chronic -continue home ambien CODE: DNR Proxy: Tereza Davis, daughter I have utilized all available resources to reconcile the patient's home medications Time Spent With Patient Critical Care time: I spent a total of [] minutes of critical care time on this patient's care today; this time is exclusive of procedural time. Quality VTE Deep Vein Thrombosis/Pulmonary Embolism Present on Admission: No
[2022-02-01 09:26] LABS: C-Reactive Protein Quant 5.6 mg/dL (<1.0)
[2022-02-01 09:28] LABS: Erythrocyte Sedimentation Rate 34 MM/HR (0-20)
[2022-02-01] MEDS: SODIUM CHLORIDE 0.9% FLUSH 10 ML IV ×3 (09:53→20:47)
[2022-02-01] MEDS: MAGNESIUM SULFATE 2 GM/50 ML PIGGYBACK IV (10:02)
[2022-02-01 12:00] VITALS: BP 122/66; PULSE 85; RESP 16; O2SAT 96
[2022-02-01] MEDS: PROMETHAZINE 25 MG TABLET PO (12:57)
[2022-02-01] MEDS: hydrOXYzine pamoate 25 MG CAPSULE PO ×2 (13:02→18:31)
[2022-02-01 13:16] LABS: Adenovirus F 40/41 Not Detected (Not Detect); Astrovirus Not Detected (Not Detect); Campylobacter Not Detected (Not Detect); Clostridium difficile toxin AB Not Detected (Not Detect); Cryptosporidium Not Detected (Not Detect); Cyclospora cayetanensis Not Detected (Not Detect); Entamoeba histolytica Not Detected (Not Detect); Enteroaggregative E.coli Not Detected (Not Detect); Enteropathogenic E.coli Not Detected (Not Detect); Enterotoxigenic E.coli It/st Not Detected (Not Detect); Giardia lamblia Not Detected (Not Detect); Norovirus GI/GII Detected (Not Detect); Plesiomonsa shigelloides Not Detected (Not Detect); Rotavirus A Not Detected (Not Detect); Salmonella Not Detected (Not Detect); Sapovirus Not Detected (Not Detect); Shiga-like toxin-prod E.coli Not Detected (Not Detect); Shigella/Enteroinvasive E.coli Not Detected (Not Detect); Vibrio Not Detected (Not Detect); Vibrio cholerae Not Detected (Not Detect); Yersinia enterocolitica Not Detected (Not Detect)
[2022-02-01] MEDS: valACYclovir 500 MG TABLET PO ×2 (13:53→20:46)
[2022-02-01] MEDS: GABAPENTIN 400 MG CAPSULE PO (13:53)
[2022-02-01] MEDS: ESCITALOPRAM 10 MG TABLET 20 MG PO (13:54)
[2022-02-01] MEDS: buPROPion XL 150 MG TAB PO (13:54)
--- NOTE | 2022-02-01 14:27 | CM.DANOTE ---
DCP Assessment: Payor: Medicare PCP: Unknown. Pt is a 66 y.o. woman presented to the ED with chief complaint of nausea and vomiting. Pt was recently admitted on 01/26 for a TLIF surgery with Dr. Ulrich and discharged to rehab on 01/28/22. Pt stated to ER physician that she has been having BM's with liquid stools. Pt admitted for further evaluation and work up of her symptoms. DCP met with pt this morning to discuss discharge needs. Pt laying in bed. DCP familiar with this patient as she worked with pt last week when sending to SNF. Pt states that she has been having bouts of N/V and liquid stools. Pt states her mobility is better and pain management is consistent. Pt states that she will discharge home with home health if needed. Pt lives by herself in an apartment and still drives POV. Yuliana, her daughter, is available if needed. No needs at this time. Will continue to monitor. White board updated and instructed to call if any other information is needed. MD updated DCP that pt tested positive for noravirus and wanted DCP to update [facility]. DCP talked with [place] and updated her about diagnosis and to watch out for an outbreak in facility. P: Once pt determined medically stable, pt will discharge home via POV. R/O home health services. Jacinta Hernández RN/CHAN Discharge Planning/Care Management CM Discharge Assessment Start: 02/01/22 09:28 Freq: Status: Active Protocol: Document 02/01/22 14:26 ALANIS (Rec: 02/01/22 14:27 ALANIS [id number]) Discharge Planning Assessment Assigned Color Artist Jacinta Hernández RN/CHAN Advance Directives? No History Provided By Patient,Medical Record Prior Living Arrangements Apartment/Condo Household Members none Type of transporation used prior to Drives own vehicle admit Independent with ADL's Yes Is patient alert and oriented? Yes Comment Will see how patient does with P.T. Discharge Plan Home Referrals Initiated None needed Additional Comment At this time. R/O home health . Whiteboard Updated in Patient Room with Yes name and ext. # of Color Artist Comment Instructed to call Review Status In Process Please Provide Date Initial DC 02/01/22 Assessment Was Performed Next Review Type Continued Stay Review
[2022-02-01] MEDS: LOPERAMIDE 2 MG CAPSULE 4 MG PO (15:16)
[2022-02-01] MEDS: BUDESONIDE 3 MG CAP 9 MG PO (15:16)
[2022-02-01 18:31] VITALS: BP 133/70; PULSE 95; RESP 16; TEMP 36.9; O2SAT 96
--- NOTE | 2022-02-01 18:55 | PC.NURSE ---
Patient diagnosed today with norovirus per GI panel results. Diarrhea and nausea improving. Tolerating clears (she states she has problems with her appetite chronically and uses supplements at home as needed). up with SB assistance today to bathroom for voiding and small loose stools. IV fluids infusing as ordered. Patient showered with assistance from [employer] and island barrier dressing applied to back. Incisions on back intact with alexandra in place, well approximated without signs of infection.
[2022-02-01] MEDS: TRAZODONE 50 MG TABLET 150 MG PO (20:45)
[2022-02-01] MEDS: ATORVASTATIN 20 MG TABLET PO (20:46)
[2022-02-01] MEDS: ZOLPIDEM 5 MG TABLET 10 MG PO (20:47)
[2022-02-02] VITALS: BP 107/70; PULSE 91; RESP 17; TEMP 36.8; O2SAT 93
[2022-02-02] MEDS: hydrOXYzine pamoate 25 MG CAPSULE PO ×4 (03:08→20:34)
[2022-02-02 05:13] LABS: Add Manual Diff / Slide Review NO; Basophils Absolute Auto 0 /uL (0-100); Basophils Percent Auto 0.1 % (0-2); Eosinophils Absolute Auto 200 /uL (0-450); Eosinophils Percent Auto 2.7 % (2-4); Hematocrit 27.3 % (36-46); Hemoglobin 9.5 g/dL (12.0-16.0); Lymphocytes Absolute Auto 1400 /uL (1100-4500); Lymphocytes Percent Auto 18.8 % (25-40); Mean Corpuscular HGB Conc 34.7 % (30-36); Mean Corpuscular Volume 89.1 fL (80-100); Monocytes Absolute Auto 800 /uL (0-900); Monocytes Percent Auto 10.9 % (3-14); Neutrophils Absolute Auto 4900 /uL (1500-7000); Neutrophils Percent Auto 67.5 % (50-75); Platelet Count 278 X10^3/uL (150-400); Red Blood Cell Count 3.06 X10^6/uL (4.0-5.2); Red Cell Distribution Width 13.6 % (11.6-14.8); White Blood Cell Count 7.2 X10^3/uL (4.5-11.0)
[2022-02-02 05:19] LABS: BUN Creatinine Ratio 13.8 (6-22); Blood Urea Nitrogen 9 mg/dL (7-17); Calcium 7.7 mg/dL (8.4-10.2); Carbon Dioxide 28 mmol/L (22-32); Chloride 107 mmol/L (98-107); Estimated Glomerular Filt Rate > 60 mL/min (>60); Glucose 92 mg/dL (80-110); HEMOLYSIS < 15 (0-50); Potassium 3.1 mmol/L (3.4-5.1); Sodium 138 mmol/L (137-145)
[2022-02-02 05:27] LABS: Magnesium 1.8 mg/dL (1.6-2.3)
[2022-02-02 06:00] VITALS: BP 126/76; PULSE 86; RESP 19; TEMP 37; O2SAT 96
[2022-02-02 08:00] VITALS: BP 133/67; PULSE 80; RESP 18; TEMP 36.5; O2SAT 97
[2022-02-02] MEDS: PROMETHAZINE 25 MG TABLET PO (08:23)
[2022-02-02] MEDS: SODIUM CHLORIDE 0.9% 1,000 ML 100 ML IV (08:27)
[2022-02-02] MEDS: valACYclovir 500 MG TABLET PO ×2 (09:32→20:34)
[2022-02-02] MEDS: LOPERAMIDE 2 MG CAPSULE PO ×3 (09:32→20:34)
[2022-02-02] MEDS: buPROPion XL 150 MG TAB PO (09:32)
[2022-02-02] MEDS: GABAPENTIN 400 MG CAPSULE PO (09:32)
[2022-02-02] MEDS: SODIUM CHLORIDE 0.9% FLUSH 10 ML IV ×2 (09:32→20:38)
[2022-02-02] MEDS: ENOXAPARIN 40 MG/0.4 ML SYRINGE SUBCUT (09:32)
[2022-02-02] MEDS: ESCITALOPRAM 10 MG TABLET 20 MG PO (09:32)
[2022-02-02] MEDS: BUDESONIDE 3 MG CAP 9 MG PO (09:32)
[2022-02-02] MEDS: POTASSIUM CHLORIDE IN WATER 10 MEQ/100 ML PIGGYBACK 100 MEQ IV ×4 (09:40→12:52)
[2022-02-02] MEDS: ACETAMINOPHEN 325 MG TABLET 975 MG PO ×2 (12:52→20:35)
[2022-02-02] MEDS: OXYCODONE IR 5 MG TABLET PO ×3 (12:53→22:05)
[2022-02-02] MEDS: methocarbamoL 500 MG TABLET PO (13:46)
[2022-02-02 13:51] VITALS: BP 144/65; PULSE 76; RESP 16; TEMP 36.8; O2SAT 98
[2022-02-02] MEDS: MAGNESIUM SULFATE 2 GM/50 ML PIGGYBACK IV (14:02)
[2022-02-02 17:04] VITALS: BP 137/76; PULSE 72; RESP 16; O2SAT 98
--- NOTE | 2022-02-02 17:06 | PC.NURSE ---
This RN notified that patient felt a flutter or palpitation that has come and gone. VSS, heart sounds regular. Patient is anxious, and feels pain is coming back. Dr. Frederick notified. Will continue to monitor.
[2022-02-02] MEDS: LORazepam 0.5 MG TABLET PO ×2 (17:42→22:05)
--- NOTE | 2022-02-02 17:45 | P.PN_ITS ---
Subjective Subjective Date Patient Seen: 02/02/22 Time Patient Seen: 13:00 Interval history: Patient feeling better than yesterday but still not quite up for going home today. Says NV and diarrhea has slowed. Exam Vital Signs (past 8 hours): - 02/02/22 13:51 02/02/22 17:04 Temperature 98.3 F Pulse Rate 76 72 Respiratory Rate 16 16 Blood Pressure 144/65 H 137/76 Pulse Oximetry 98 98 Oxygen Delivery Method Room Air Narrative Exam Narrative: GEN: less anxious and appears more comfortable today HEENT: moist mucous membranes, PERRL NECK: trachea midline, no JVD CV: tachycardic PULM: clear bilaterally, no wheezes, rhonchi, rales ABD: soft, improved tenderness to palpation, diminished bowel sounds EXT: warm and well perfused with no edema NEURO: awake, alert, oriented, no focal deficits Objective Labs Result Diagrams: 02/02/22 04:55 02/02/22 04:55 Labs: Laboratory Results - last 24 hr 02/02/22 02/02/22 02/02/22 04:55 04:55 04:55 WBC 7.2 RBC 3.06 L Hgb 9.5 L Hct 27.3 L MCV 89.1 MCH 31.0 MCHC 34.7 RDW 13.6 Plt Count 278 Neut % (Auto) 67.5 D Lymph % (Auto) 18.8 L [place] % (Auto) 10.9 Eos % (Auto) 2.7 Baso % (Auto) 0.1 Neut # (Auto) 4900 Lymph # (Auto) 1400 [place] # (Auto) 800 Eos # (Auto) 200 Baso # (Auto) 0 Sodium 138 Potassium 3.1 L Chloride 107 Carbon Dioxide 28 BUN 9 Creatinine 0.65 Estimated GFR > 60 BUN/Creatinine Ratio 13.8 Glucose 92 Calcium 7.7 L Magnesium 1.8 PFSH Medical History Anxiety Colitis, nonspecific Depression Easy bruisability Fibromyalgia History of revision of total replacement of left knee joint (07/2008) History of revision of total replacement of right knee joint (~2005) HLD (hyperlipidemia) Infection of mandible (2019) Loose left total knee arthroplasty (2003) MRSA (methicillin resistant Staphylococcus aureus) PTSD (post-traumatic stress disorder) Sciatica Spinal stenosis Surgical History History of arthroplasty of right knee (~2003) History of ear surgery History of lumbar spinal fusion (05/2019) History of nasal surgery Hx of arthroscopy of right knee Hx of laminectomy (~2017) Hx of repair of right rotator cuff Social History household members: none Smoking Status: Former smoker alcohol intake: former Assessment & Plan Assessment & Plan narrative: Ms. Gonzalez is a 66W with PMH fibromyalgia, recent spinal surgery who presents with abdominal pain, intractable NV and diarrhea from SNF after undergoing laminectomy surgery 1 week ago. 1. Acute colitis secondary to norovirus with intractable NV -stool PCR positive for norovirus, patient just came from [facility] in [place] so we have contacted them to tell them they may have an outbreak -CT showed thick small bowel wall, and dilated bowel loops -imodium has helped slow diarrhea -C. diff negative -ordered pain medications and anti-nausea medications -liquid diet and advance as tolerated, now tolerating po intake -contact isolation -zofran and phenergan PRN for NV 2. s/p lumbar laminectomy -by Dr. Brice 1 week prior to admission -continue with pain medications 3. Fibromyalgia, PTSD -continue lexapro, methocarbamol, wellbutrin and gabapentin 4. HLD, chronic -continue home simvastatin 5. Anxiety, chronic -continue home vistaril with ativan po PRN 6. Insomnia, chronic -continue home ambien CODE: DNR Proxy: Tereza Davis, daughter I have utilized all available resources to reconcile the patient's home medications Dispo: Home on 02/03 with HH PT. Time Spent With Patient Critical Care time: I spent a total of [] minutes of critical care time on this patient's care today; this time is exclusive of procedural time. Quality VTE Deep Vein Thrombosis/Pulmonary Embolism Present on Admission: No
[2022-02-02 20:00] VITALS: BP 129/74; PULSE 71; RESP 17; TEMP 36.8; O2SAT 95
[2022-02-02] MEDS: TRAZODONE 50 MG TABLET 150 MG PO (20:34)
[2022-02-02] MEDS: ATORVASTATIN 20 MG TABLET PO (20:34)
[2022-02-02] MEDS: ZOLPIDEM 5 MG TABLET 10 MG PO (20:35)
[2022-02-03] VITALS: BP 120/70; PULSE 95; RESP 15; TEMP 36.6; O2SAT 96
[2022-02-03] MEDS: OXYCODONE IR 5 MG TABLET PO ×3 (03:51→12:16)
[2022-02-03] MEDS: LORazepam 0.5 MG TABLET PO (03:51)
[2022-02-03] MEDS: PROMETHAZINE 25 MG TABLET PO ×2 (03:56→08:31)
[2022-02-03 05:50] LABS: Hematocrit 29.1 % (36-46); Mean Corpuscular HGB Conc 34.5 % (30-36); Mean Corpuscular Hemoglobin 30.9 PG (26-34); Mean Corpuscular Volume 89.5 fL (80-100); Platelet Count 267 X10^3/uL (150-400); Red Blood Cell Count 3.25 X10^6/uL (4.0-5.2); Red Cell Distribution Width 13.3 % (11.6-14.8); White Blood Cell Count 5.5 X10^3/uL (4.5-11.0)
[2022-02-03 05:51] LABS: Add Manual Diff / Slide Review YES
[2022-02-03 05:54] LABS: Blood Urea Nitrogen 4 mg/dL (7-17); Calcium 8.1 mg/dL (8.4-10.2); Carbon Dioxide 30 mmol/L (22-32); Chloride 106 mmol/L (98-107); Estimated Glomerular Filt Rate > 60 mL/min (>60); Glucose 88 mg/dL (80-110); HEMOLYSIS < 15 (0-50); Potassium 3.3 mmol/L (3.4-5.1); Sodium 139 mmol/L (137-145)
[2022-02-03 06:00] VITALS: BP 122/61; PULSE 63; RESP 17; TEMP 36.6; O2SAT 95
[2022-02-03 06:45] LABS: Neutrophils Absolute Manual 3025 /uL (3000-5900); Total Cells Counted 100
[2022-02-03 06:46] LABS: RBC Morphology Normal Morphology
[2022-02-03] MEDS: buPROPion XL 150 MG TAB PO (08:31)
[2022-02-03] MEDS: BUDESONIDE 3 MG CAP 9 MG PO (08:31)
[2022-02-03] MEDS: GABAPENTIN 400 MG CAPSULE PO (08:31)
[2022-02-03] MEDS: ESCITALOPRAM 10 MG TABLET 20 MG PO (08:31)
[2022-02-03] MEDS: ENOXAPARIN 40 MG/0.4 ML SYRINGE SUBCUT (08:31)
[2022-02-03] MEDS: valACYclovir 500 MG TABLET PO (08:31)
[2022-02-03 08:36] VITALS: BP 136/66; PULSE 68; RESP 18; TEMP 36.8; O2SAT 98
--- NOTE | 2022-02-03 08:45 | P.DS_ITS ---
History of Present Illness History of Present Illness Date Patient Seen: 02/03/22 Time Patient Seen: 12:00 Chief complaint: POST OP PAIN Narrative: Ms. Gonzalez is a 66W with PMH fibromyalgia, previous colitis, previous c diff infection, and was just discharged after surgery for lumbar stenosis and discharge three days ago now presents with nausea, vomiting, and abdominal pain. She has also been having liquid stools. No blood in vomit or stool. She was discharged to SNF and states she was not regularly getting pain medications. She thought that her initial episodes of vomiting may have been secondary to pain. She has not had fevers, but has had chills and rigors. She has not had cough, shortness of breath, chest pain. She has had colitis in the past and has had EGD/colo and was told she had an nonspecific colitis. She has not been diagnosed with IBD. She has a remote history of c diff infection, and has not taken antibiotics. In the ED workup was done, vitals was notable for afebrile, heart rate in the 130s, blood pressure normal. Labs notable for WBC 15.5, hgb 13.9, plts 486. Creatinine 0.86. Lactate initially 2.5, then 0.9. UA with no evidence of infection. CT abdomen/pelvis shows thick small bowel loops with mild distention. CTA shows thick esophagus. She was ordered for pain medications and IV zosyn and admitted for further treatment. Discharge Providers Provider Date of admission: 01/31/22 18:39 Discharge Date: 02/03/22 Discharge provider: Danny Frederick DO Summary Hospital Course Discharge Diagnosis: 1. Acute colitis secondary to norovirus with intractable NV -stool PCR positive for norovirus, patient just came from [facility] in [place] so we have contacted them to tell them they may have an outbreak -CT showed thick small bowel wall, and dilated bowel loops -imodium has helped slow diarrhea -C. diff negative -ordered pain medications and anti-nausea medications -liquid diet and advance as tolerated, now tolerating po intake -contact isolation -zofran and phenergan PRN for NV 2. s/p lumbar laminectomy -by Dr. Brice 1 week prior to admission -continue with pain medications 3. Fibromyalgia, PTSD -continue lexapro, methocarbamol, wellbutrin and gabapentin 4. HLD, chronic -continue home simvastatin 5. Anxiety, chronic -continue home vistaril with ativan po PRN 6. Insomnia, chronic -continue home [facility] Hospital Course: Admitted from [facility] with acute NV and diarrhea with abd pain. Stool PCR positive for norovirus. Placed on isolation and SNF made aware of diagnosis. Given supportive care with fluids, antiemetics and antimotility agents and patient improved. Discharged home with PT. Time Spent with Patient Time spent: Greater than 30 minutes Exam Vital Signs (past 8 hours): - 02/03/22 06:00 02/03/22 08:36 Temperature 97.8 F 98.2 F Pulse Rate 63 68 Respiratory Rate 17 18 Blood Pressure 122/61 136/66 Pulse Oximetry 95 98 Oxygen Flow Rate 0 Oxygen Delivery Method Room Air Oxygen Flow Rate 0 Narrative Exam Narrative: GEN: less anxious and appears more comfortable today HEENT: moist mucous membranes, PERRL NECK: trachea midline, no JVD CV: tachycardic PULM: clear bilaterally, no wheezes, rhonchi, rales ABD: soft, improved tenderness to palpation, diminished bowel sounds EXT: warm and well perfused with no edema NEURO: awake, alert, oriented, no focal deficits Objective Labs Result Diagrams: 02/03/22 05:24 02/03/22 05:24 Labs: Laboratory Results - last 24 hr 02/03/22 02/03/22 05:24 05:24 WBC 5.5 RBC 3.25 L Hgb 10.0 L Hct 29.1 L MCV 89.5 MCH 30.9 MCHC 34.5 RDW 13.3 Plt Count 267 Neut % (Auto) Not Reportable Lymph % (Auto) Not Reportable [place] % (Auto) Not Reportable Eos % (Auto) Not Reportable Baso % (Auto) Not Reportable Lymph # (Auto) Not Reportable [place] # (Auto) Not Reportable Baso # (Auto) Not Reportable Total Counted 100 Seg Neutrophils % 55.0 Lymphocytes % (Manual) 30.0 Monocytes % (Manual) 10.0 Eosinophils % (Manual) 3.0 Myelocytes % 2.0 H Neutrophils # (Manual) 3025 RBC Morphology Normal morphology Sodium 139 Potassium 3.3 L Chloride 106 Carbon Dioxide 30 BUN 4 L Creatinine 0.67 Estimated GFR > 60 BUN/Creatinine Ratio 6.0 Glucose 88 Calcium 8.1 L [facility] Medical History Anxiety Colitis, nonspecific Depression Easy bruisability Fibromyalgia History of revision of total replacement of left knee joint (07/2008) History of revision of total replacement of right knee joint (~2005) HLD (hyperlipidemia) Infection of mandible (2019) Loose left total knee arthroplasty (2003) MRSA (methicillin resistant Staphylococcus aureus) PTSD (post-traumatic stress disorder) Sciatica Spinal stenosis Surgical History History of arthroplasty of right knee (~2003) History of ear surgery History of lumbar spinal fusion (05/2019) History of nasal surgery Hx of arthroscopy of right knee Hx of laminectomy (~2017) Hx of repair of right rotator cuff Social History household members: none Smoking Status: Former smoker alcohol intake: former Discharge Plan Discharge Plan Patient Disposition: Home Health Service Provider Discharge Comment: You were found have norovirus which improved. No other findings of anything serious. Discharge orders & Medications Prescriptions: Continued gabapentin 400 mg Capsule 400 mg PO SEEINSTR Label Comments: 400mg qam, 400mg qpm, 800mg bedtime valacyclovir 500 mg Tablet 500 mg PO BID oxycodone-acetaminophen 10-325 mg Tablet 1 tab PO BID-TID trazodone 150 mg Tablet 150 mg PO BEDTIME promethazine 25 mg Tablet 25 mg PO Q4-6H PRN (Reason: Nausea) budesonide 3 mg Capsule,Delayed,Extend.Release 9 mg PO QAM zolpidem [Ambien] 10 mg Tablet 10 mg PO BEDTIME acetaminophen 500 mg Capsule 1,000 mg PO Q6H PRN (Reason: Pain) esomeprazole magnesium 20 mg Capsule,Delayed Release(Dr/Ec) 40 mg PO DAILY escitalopram oxalate [Lexapro] 20 mg Tablet 20 mg PO DAILY bupropion HCl 300 mg Tablet Extended Release 24 Hr 150 mg PO QAM simvastatin 40 mg Tablet 40 mg PO BEDTIME diphenhydramine HCl [Benadryl] 25 mg Capsule 50 - 100 mg PO BEDTIME PRN (Reason: Sleep) docusate sodium 100 mg Capsule 100 mg PO BID PRN (Reason: constipation) Qty: 60 2RF hydromorphone 2 mg Tablet 2 mg PO Q3H PRN (Reason: pain, severe) Qty: 30 0RF hydroxyzine pamoate 25 mg Capsule 25 mg PO Q4HR PRN (Reason: Muscle Spasm) Qty: 120 1RF methocarbamol 500 mg Tablet 500 mg PO TID PRN (Reason: Muscle Spasm) Qty: 60 0RF oxycodone 5 mg tablet 5 mg PO Q4H PRN (Reason: pain, moderate) Qty: 60 0RF Rx Instructions: 1-2 tabs (5-10mg) q 4H zolpidem 10 mg tablet 10 mg PO BEDTIME PRN (Reason: insomnia) Qty: 14 0RF Visit Report/Discharge Packet Instructions: Norovirus Infection, DI for Norovirus Infection Quality VTE Deep Vein Thrombosis/Pulmonary Embolism Present on Admission: No
[2022-02-03] MEDS: MAGNESIUM SULFATE 2 GM/50 ML PIGGYBACK IV (09:33)
[2022-02-03] MEDS: POTASSIUM CHLORIDE 20 MEQ TAB 40 MEQ PO (09:33)
[2022-02-03] MEDS: SODIUM CHLORIDE 0.9% FLUSH 10 ML IV (09:44)
[2022-02-03] MEDS: diphenhydrAMINE 50 MG/ML VIAL 25 MG IV (09:52)
--- NOTE | 2022-02-03 11:02 | CM.DPC ---
Addendum entered by Susan Sandhu R.N. 02/03/22 15:57: Esperanza from [facility] has verbally accepted patient for their HACH program. She is aware that patient has MD appointment on the . Updated and left Zach at [facility] that she has been accepted at [facility]. Addendum entered by Susan Sandhu R.N. 02/03/22 15:38: Called Zach at [facility] to see if she has accepted patient, asked her to call this DC Chief Contract Officer back, otherwise, will call Esperanza at [facility] as well. Will need to know which agency can accept. Addendum entered by Susan Sandhu R.N. 02/03/22 13:39: Patient is discharging today, she made herself an appointment at [facility], in [place] for the 17 of February. Updated [facility], and [place] also has the referral. Let patient know that both of these agencies have the referrals, depends on which one can see her first. [place] is willing to get orders from her PCP in [facility]. Patient is anxious about having dressing supplies. [facility] will supply patient with some dressing supplies upon discharge. Left Zach a message, with [facility], as well, that patient has an appointment on the 17 of February to be established with a new provider. Addendum entered by Susan Sandhu R.N. 02/03/22 12:12: Zach from [facility] called back and confirmed that they can work with out of state providers, confirmed with her operation supervisor. She also indicated that they can do virtual visits, and working on their HACH program. Went ahead and also sent her referral, and she will review. [facility] and [facility] now both have referral. Original Note: COP Cont: Hospitalist is planning on discharging patient home today. Notes from [facility] indicate that patient is interested in home health. Called patient's room, noted she has no local provider, her primary care provider is located in [facility], Dr. Lemus. Let patient know that she may not be able to get home health with no local provider, but this DC service planner can ask. Spoke to Esperanza at [facility], and she indicated that they can't take orders from doctors in other states, since they are not licensed here, but may be able to get her started with the HACH program, as long as she is looking to get established with a local provider. Updated patient regarding this, and wrote down [facility] physicians phone number, and [facility], and asked nurse to give this to her. Let her know that she may qualify for their HACH program until she gets a local provider, but not definate. Encouraged her to call local providers as soon as she can. Esperanza indicated that [facility] has had openings. Faxed Esperanza over the face sheet, H&P, DC Summary, face sheets, and face to face, placed her primary doctor from [facility] as provider, but wrote on face to face that patient will be contacting providers in [place]. [facility] to continue to follow. Patient could be discharged today, and she was told to contact providers given to her, and [facility] may work with her, but not definate as of yet. They do have the referral. Susan Sandhu RN/Quantitative Manager
[2022-02-03] MEDS: LOPERAMIDE 2 MG CAPSULE PO (11:16)
[2022-02-03 11:33] VITALS: BP 128/68; PULSE 72; RESP 17; TEMP 36.7; O2SAT 97
[2022-02-03 11:40] VITALS: BP 128/68; PULSE 72; RESP 17; TEMP 36.7; O2SAT 97
[2022-02-03] MEDS: hydrOXYzine pamoate 25 MG CAPSULE PO (12:16)
--- NOTE | 2022-02-03 13:28 | PC.NURSE ---
Pt is AxOx4, independent and cooperative. VSS, pt c/o pain on her back and abd and received PRN Oxy 5mg PO twice with good effect. Pt also requested PRN Imodium 2mg once with good effect. Pt has x 1 loose stools but no vomiting. Pt requested PRN Vistaril once with good effect. Pt is doing well and ready to d/c home. Dressing on her back changed and there is no drainage and alexandra are looking good. Extra supplies of dressing changes given to pt. Instruction given regarding Noro virus to pt and pt verbalized understanding. No other changes.
[2022-02-11 07:03] LABS: Calprotectin, Stool 922 ug/g (0-120)
== END 2022-02-03 14:32 | disposition home or self-care (01) | DRG 392 ==
LOC: ED 18:37 → AC 02-01 12:32
PROVIDERS: Internal Medicine; Admitting Provider Student in an Organized Health Care Education/Training Program; Emergency Provider Emergency Medicine; Referring Provider Emergency Medicine; Visit Provider Student in an Organized Health Care Education/Training Program
DX: A08.11 Acute gastroenteropathy due to Norwalk agent (principal); M79.7 Fibromyalgia; F43.10 Post-traumatic stress disorder, unspecified; E78.5 Hyperlipidemia, unspecified; F41.9 Anxiety disorder, unspecified; G47.00 Insomnia, unspecified; Z87.891 Personal history of nicotine dependence; Z98.890 Other specified postprocedural states; Z66 Do not resuscitate; Z20.822 Contact with and (suspected) exposure to COVID-19
CPT/HCPCS: 36415; 71275; 74177; 80048; 80053; 81003; 81015; 83605; 83690; 83735; 83993; 84145; 85007; 85025; 85651; 86140; 87040; 87493; 87507; 87635; 93005; 96365; 96375; 99285; C9803; J0780; J1170; J1200; J1650; J1885; J2270; J2405; J2543; J2930; J3475; Q9967

== ENCOUNTER → 2022-05-05 13:53 | Outpatient (CLI) | payer MEDICARE, SELFPAY ==
[2022-01-31 21:20] VITALS: BMI 25.1
--- NOTE | 2022-05-05 | DI.CT.S_ITS ---
PROCEDURE: CT LE LT W CON INDICATIONS: CLOSED NONDISPLACED FRACTURE TECHNIQUE: Noncontrast 1-1.5 mm axial sections acquired from above the tibiotalar joint to the bottom of the calcaneus, with coronal and sagittal reformats. COMPARISON: None. FINDINGS: Image quality: Excellent. Bones: Mild scattered arthrosis in the tibiotalar, midfoot, and forefoot joints. No acute appearing fracture is identified. Two small os navicularis. Chronic fracture deformity with small adjacent bone fragments of the proximal 2nd metatarsal shaft. There appears to be pseudoarticulation at this location with with cystic changes. There is some widening of the Lisfranc interval, especially the plantar aspect. Soft tissues: Plantar calcaneal enthesopathy. Grossly intact, limited evaluation of the tendinous structures. No abscess or drainable hematoma. IMPRESSION: Chronic fracture deformity of the proximal 2nd metatarsal shaft with suspected pseudoarticulation and some Lisfranc widening. If additional imaging is needed, consider MRI. Dictated by: Gamaliel Florentino M.D. on 05/05/2022 at 15:14 Approved by: Gamaliel Florentino M.D. on 05/05/2022 at 15:21
--- NOTE | 2022-05-05 | DI.MG.S_ITS ---
BILATERAL DIGITAL SCREENING MAMMOGRAM 3D/2D WITH CAD: 05/05/2022 CLINICAL: Routine screening. Family history of breast cancer. Comparison is made to exam dated: 07/24/2018 mammogram - outside location. Both breasts are heterogeneously dense, which may obscure small masses (category c / 51-75% glandular tissue). Current study was also evaluated with a Computer Aided Detection (CAD) system. There are benign calcifications in both breasts. There also are benign vascular calcifications in both breasts. No significant masses, calcifications, or other findings are seen in either breast. There has been no significant interval change. IMPRESSION: BENIGN There is no mammographic evidence of malignancy. A 1 year screening mammogram is recommended. Based on the Tyrer Cuzick model (a risk assessment model) the patient's lifetime risk is 7.8% and her 10 year risk is 3.6%. According to the ACR, ACS, and NCCN guidelines, an annual breast MRI exam along with mammogram is recommended if the patient's lifetime risk is 20% or greater. This exam was interpreted at Station ID: [id number]. NOTE: For mammograms, a report in lay terms will be sent to the patient. Approximately 15% of breast malignancies will not be visualized mammographically. In the management of a palpable breast mass, a negative mammogram must not discourage biopsy of a clinically suspicious lesion. Electronically Signed By: Paco tobias/cody:05/05/2022 15:55:54 letter sent: Normal Exam ACR BI-RADS Category 2: Benign Finding(s) [id number]
== END ==
PROVIDERS: PCP Physician Assistant; Referring Provider Orthopaedic Surgery Foot and Ankle Surgery; Visit Provider Orthopaedic Surgery Foot and Ankle Surgery
DX: Z12.31 Encounter for screening mammogram for malignant neoplasm of breast (principal); S92.325K Nondisplaced fracture of second metatarsal bone, left foot, subsequent encounter for fracture with nonunion; Z80.3 Family history of malignant neoplasm of breast
CPT/HCPCS: 73700; 77063; 77067

== ENCOUNTER 2022-07-12 08:52 | Emergency (ER) | payer MEDICARE, SELFPAY ==
[2022-01-31 21:20] VITALS: BMI 25.1
[2022-07-12 09:09] VITALS: BP 132/79; PULSE 85; RESP 18; TEMP 36.6; O2SAT 100; BMI 27.4
[2022-07-12] MEDS: ONDANSETRON 4 MG ODT PO (09:32)
--- NOTE | 2022-07-12 10:41 | ED_ITS ---
HPI - Nausea/Vomiting/Diarrhea General Chief complaint: Nausea/Vomiting/Diarrhea Stated complaint: throwing up since Time Seen by Provider: 07/12/22 10:36 Source: patient Mode of arrival: Ambulatory Limitations: no limitations History of Present Illness HPI Narrative: 66-year-old female who arrives the emergency department today stating that she is been throwing up for the past couple days. She does have nausea medication at home she states that it does take care of her for short period of time. She is not had any nausea medicine today. No change in bowel habits. No urinary symptoms. No fevers. She was concerned about [facility]. Related Data Home Medications Medication Instructions Recorded Confirmed acetaminophen 500 mg capsule 1,000 mg PO Q6H PRN Pain 01/15/22 01/31/22 budesonide 3 mg 9 mg PO QAM 01/15/22 01/31/22 capsule,delayed,extended release bupropion HCl 300 mg 24 hr tablet, 150 mg PO QAM 01/15/22 01/31/22 extended release escitalopram oxalate 20 mg tablet 20 mg PO DAILY 01/15/22 01/31/22 (Lexapro) esomeprazole magnesium 20 mg 40 mg PO DAILY 01/15/22 01/25/22 capsule,delayed release gabapentin 400 mg capsule 400 mg PO SEEINSTR 01/15/22 01/31/22 oxycodone-acetaminophen 10 mg-325 1 tab PO BID-TID 01/15/22 01/31/22 mg tablet promethazine 25 mg tablet 25 mg PO Q4-6H PRN Nausea 01/15/22 01/31/22 simvastatin 40 mg tablet 40 mg PO BEDTIME 01/15/22 01/31/22 trazodone 150 mg tablet 150 mg PO BEDTIME 01/15/22 01/31/22 valacyclovir 500 mg tablet 500 mg PO BID 01/15/22 01/31/22 zolpidem 10 mg tablet (Ambien) 10 mg PO BEDTIME 01/15/22 01/25/22 diphenhydramine HCl 25 mg capsule 50 - 100 mg PO BEDTIME PRN Sleep 01/18/22 01/25/22 (Benadryl) Previous Rx's Medication Instructions Recorded docusate sodium 100 mg capsule 100 mg PO BID PRN constipation #60 01/28/22 caps hydromorphone 2 mg tablet 2 mg PO Q3H PRN pain, severe #30 01/28/22 tabs hydroxyzine pamoate 25 mg capsule 25 mg PO Q4HR PRN Muscle Spasm 01/28/22 #120 caps methocarbamol 500 mg tablet 500 mg PO TID PRN Muscle Spasm #60 01/28/22 tabs oxycodone 5 mg tablet 5 mg PO Q4H PRN pain, moderate #60 01/28/22 tabs zolpidem 10 mg tablet 10 mg PO BEDTIME PRN insomnia #14 01/28/22 tabs promethazine 25 mg tablet 25 mg PO Q4-6H PRN nausea and 07/12/22 vomiting #14 tabs Allergies Allergy/AdvReac Type Severity Reaction Status Date / Time Iodinated Contrast Media Allergy Mild Rash Verified 01/25/22 12:14 rifampin Allergy Mild Rash Verified 01/25/22 12:14 vancomycin Allergy Mild Rash Verified 01/25/22 12:14 Review of Systems Constitutional Constitutional: Reports system reviewed and no additional complaints, except as documented Gastrointestinal Gastrointestinal: Reports system reviewed and no additional complaints, except as documented Genitourinary Genitourinary: Reports system reviewed and no additional complaints, except as documented Musculoskeletal Musculoskeletal: Reports system reviewed and no additional complaints, except as documented Integumentary/Breasts Skin/Breast: Reports system reviewed and no additional complaints, except as documented Hematologic/Lymphatic On Anticoagulants: No Patient History Medical History Anxiety Colitis, nonspecific Depression Easy bruisability Fibromyalgia History of revision of total replacement of left knee joint (07/2008) History of revision of total replacement of right knee joint (~2005) HLD (hyperlipidemia) Infection of mandible (2019) Loose left total knee arthroplasty (2003) MRSA (methicillin resistant Staphylococcus aureus) PTSD (post-traumatic stress disorder) Sciatica Spinal stenosis Surgical History History of arthroplasty of right knee (~2003) History of ear surgery History of lumbar spinal fusion (05/2019) History of nasal surgery Hx of arthroscopy of right knee Hx of laminectomy (~2017) Hx of repair of right rotator cuff Social History household members: none Smoking Status: Former smoker alcohol intake: former Smoking Status: Former smoker alcohol intake frequency: holidays/special occasions only Substance Use Type: marijuana Exam Initial Vital Signs Initial Vital Signs: Vital Signs Temperature 98 F 07/12/22 09:09 Pulse Rate 85 07/12/22 09:09 Respiratory Rate 18 07/12/22 09:09 Blood Pressure 132/79 07/12/22 09:09 Pulse Oximetry 100 07/12/22 09:09 Oxygen Delivery Method 07/12/22 09:09 Const General: cooperative, comfortable and No ill appearing HENMT Head: normal to inspection and normocephalic Resp Effort & Inspection: normal respiratory effort Auscultation: clear to auscultation bilaterally Cardio Rate: regular rate Rhythm: regular rhythm GI Inspection: normal to inspection Palpation: soft and No tender Skin General: no rashes or lesions noted Neuro General: patient alert, patient awake and moves all extremities Course Orders Ordered: ED Orders 07/12/22 10:30 Complete Blood Count AUTO DIFF Stat Comprehensive Metabolic Panel Stat Lipase Stat Troponin & CK Cardiac Panel Stat 07/12/22 13:12 Urine Culture Stat Discontinued Medications Acetaminophen (Acetaminophen 325 Mg Tablet) 650 mg PO NOW ONE Stop: 07/12/22 11:04 Last Admin: 07/12/22 11:07 Dose: 650 mg Documented By: BARBARA Sodium Chloride (Normal Saline 0.9%) 1,000 mls @ 1,000 mls/hr IV BOLUS ONE Stop: 07/12/22 11:40 Last Infusion: 07/12/22 12:19 Dose: 0 mls/hr Documented By: Admin: 07/12/22 11:05 Dose: 1,000 mls/hr Documented By: BARBARA Ondansetron HCl (Ondansetron 4 Mg Odt) 4 mg PO NOW PRN PRN Reason: Nausea And Vomiting Last Admin: 07/12/22 09:32 Dose: 4 mg Documented By: OLU Ondansetron HCl (Ondansetron 4 Mg/2 Ml Inj) 4 mg IV NOW PRN PRN Reason: Nausea And Vomiting Vital Signs Vital signs: Vital Signs - 8 hr 07/12/22 12:16 07/12/22 12:30 07/12/22 12:30 Pulse Rate 79 Blood Pressure 143/67 H 130/72 Pulse Oximetry 96 07/12/22 13:00 07/12/22 13:00 Pulse Rate 87 Blood Pressure 142/74 H Pulse Oximetry 97 MDM - Nausea/Vomiting/Diarrhea Lab Data Attestation: I reviewed the patient's lab results. 07/12/22 10:30 07/12/22 10:30 Labs: Lab Results 07/12/22 07/12/22 07/12/22 Range/Units 09:15 10:30 10:30 WBC 8.2 (4.5-11.0) X10^3/uL RBC 4.34 (4.0-5.2) X10^6/uL Hgb 11.7 L (12.0-16.0) g/dL Hct 35.7 L (36-46) % MCV 82.3 (80-100) fL MCH 27.0 (26-34) PG MCHC 32.9 (30-36) % RDW 16.3 H (11.6-14.8) % Plt Count 282 (150-400) X10^3/uL Neut % (Auto) 72.9 (50-75) % Lymph % (Auto) 16.6 L (25-40) % [place] % (Auto) 8.4 (3-14) % Eos % (Auto) 1.7 L (2-4) % Baso % (Auto) 0.4 (0-2) % Neut # (Auto) 6000 (8973-2651) /uL Lymph # (Auto) 1400 (2046-5478) /uL [place] # (Auto) 700 (0-900) /uL Eos # (Auto) 100 (0-450) /uL Baso # (Auto) 0 (0-100) /uL Sodium 137 (137-145) mmol/L Potassium 4.1 (3.4-5.1) mmol/L Chloride 100 (98-107) mmol/L Carbon Dioxide 27 (22-32) mmol/L BUN 11 (7-17) mg/dL Creatinine 0.86 (0.52-1.04) mg/dL Estimated GFR > 60 (>60) mL/min BUN/Creatinine Ratio 12.8 (6-22) Glucose 104 (80-110) mg/dL Calcium 9.3 (8.4-10.2) mg/dL Total Bilirubin 0.4 (0.2-1.3) mg/dL AST 23 (14-36) IU/L ALT 13 (<35) IU/L Alkaline Phosphatase 78 (38-126) U/L Total Creatine Kinase (30-135) U/L CK-MB (CK-2) CK-MB (CK-2) Rel Index Troponin I (0.01-0.034) ng/mL Total Protein 7.0 (6.3-8.2) g/dL Albumin 4.3 (3.5-5.0) g/dL Globulin 2.7 (1.7-4.1) g/dL Albumin/Globulin Ratio 1.6 (1.0-2.8) Lipase 56 (23-300) U/L Urine RBC None seen (0-5/HPF) Urine WBC 1-5/hpf (0-5/HPF) Ur Squamous Epith Cells 0-1 /hpf (0-5/HPF) Urine Bacteria Few (2-10) H (None) Urine Mucus 1+ H (Negative) Ur Culture Indicated? Cult not indicated 07/12/22 Range/Units 10:30 WBC (4.5-11.0) X10^3/uL RBC (4.0-5.2) X10^6/uL Hgb (12.0-16.0) g/dL Hct (36-46) % MCV (80-100) fL MCH (26-34) PG MCHC (30-36) % RDW (11.6-14.8) % Plt Count (150-400) X10^3/uL Neut % (Auto) (50-75) % Lymph % (Auto) (25-40) % [place] % (Auto) (3-14) % Eos % (Auto) (2-4) % Baso % (Auto) (0-2) % Neut # (Auto) (6986-2475) /uL Lymph # (Auto) (5106-1004) /uL [place] # (Auto) (0-900) /uL Eos # (Auto) (0-450) /uL Baso # (Auto) (0-100) /uL Sodium (137-145) mmol/L Potassium (3.4-5.1) mmol/L Chloride (98-107) mmol/L Carbon Dioxide (22-32) mmol/L BUN (7-17) mg/dL Creatinine (0.52-1.04) mg/dL Estimated GFR (>60) mL/min BUN/Creatinine Ratio (6-22) Glucose (80-110) mg/dL Calcium (8.4-10.2) mg/dL Total Bilirubin (0.2-1.3) mg/dL AST (14-36) IU/L ALT (<35) IU/L Alkaline Phosphatase (38-126) U/L Total Creatine Kinase 51 (30-135) U/L CK-MB (CK-2) TNP CK-MB (CK-2) Rel Index TNP Troponin I < 0.012 (0.01-0.034) ng/mL Total Protein (6.3-8.2) g/dL Albumin (3.5-5.0) g/dL Globulin (1.7-4.1) g/dL Albumin/Globulin Ratio (1.0-2.8) Lipase (23-300) U/L Urine RBC (0-5/HPF) Urine WBC (0-5/HPF) Ur Squamous Epith Cells (0-5/HPF) Urine Bacteria (None) Urine Mucus (Negative) Ur Culture Indicated? Urine Dip Bedside Urine Glucose Negative Bedside Urine Bilirubin - Negative Bedside Urine Ketone - Negative Urine Specific [place] 1.015 Bedside Urine Occult Blood - Negative Bedside Urine pH 7 Bedside Urine Protein +/- 15 Bedside Urine Urobilinogen - Negative Bedside Urine Nitrite - Negative Bedside Urine Leukocytes - Negative Esterase MDM Narrative Medical decision making narrative: Patient is well-appearing. Has unremarkable vital signs and unremarkable labs and unremarkable exam. I do suspect that anxiety does play a role in her presenting symptoms today. She does have Phenergan at home but needs a refill of this which I did sent to the pharmacy of her choice. No indication for radiologic studies feel that an acute intra-abdominal surgical pathology is unlikely. No indication for antibiotics. Patient ambulate around the emergency department without issue. Will discharge patient home with return precautions and instructions to follow up with primary provider. She expressed understanding. Discharge Plan Departure Patient Disposition: Home Clinical Impression: Vomiting Instructions: DI for Vomiting -- Adult Activity Restrictions/Additional Instructions: I recommend that you continue to take all of your medications as directed. Keep your appointment that you have scheduled on Tuesday with your primary doctor. Return to the emergency department for new symptoms Prescriptions: New promethazine 25 mg tablet 25 mg PO Q4-6H PRN (Reason: nausea and vomiting) Qty: 14 0RF No Action gabapentin 400 mg Capsule 400 mg PO SEEINSTR Label Comments: 400mg qam, 400mg qpm, 800mg bedtime valacyclovir 500 mg Tablet 500 mg PO BID oxycodone-acetaminophen 10-325 mg Tablet 1 tab PO BID-TID trazodone 150 mg Tablet 150 mg PO BEDTIME promethazine 25 mg Tablet 25 mg PO Q4-6H PRN (Reason: Nausea) budesonide 3 mg Capsule,Delayed,Extend.Release 9 mg PO QAM zolpidem [Ambien] 10 mg Tablet 10 mg PO BEDTIME acetaminophen 500 mg Capsule 1,000 mg PO Q6H PRN (Reason: Pain) esomeprazole magnesium 20 mg Capsule,Delayed Release(Dr/Ec) 40 mg PO DAILY escitalopram oxalate [Lexapro] 20 mg Tablet 20 mg PO DAILY bupropion HCl 300 mg Tablet Extended Release 24 Hr 150 mg PO QAM simvastatin 40 mg Tablet 40 mg PO BEDTIME diphenhydramine HCl [Benadryl] 25 mg Capsule 50 - 100 mg PO BEDTIME PRN (Reason: Sleep) docusate sodium 100 mg Capsule 100 mg PO BID PRN (Reason: constipation) Qty: 60 2RF hydromorphone 2 mg Tablet 2 mg PO Q3H PRN (Reason: pain, severe) Qty: 30 0RF hydroxyzine pamoate 25 mg Capsule 25 mg PO Q4HR PRN (Reason: Muscle Spasm) Qty: 120 1RF methocarbamol 500 mg Tablet 500 mg PO TID PRN (Reason: Muscle Spasm) Qty: 60 0RF oxycodone 5 mg tablet 5 mg PO Q4H PRN (Reason: pain, moderate) Qty: 60 0RF Rx Instructions: 1-2 tabs (5-10mg) q 4H zolpidem 10 mg tablet 10 mg PO BEDTIME PRN (Reason: insomnia) Qty: 14 0RF Referrals: Bev Marcus PA-C [Primary Care Provider] - Stand Alone Forms: Patient Portal/API
[2022-07-12] MEDS: SODIUM CHLORIDE 0.9% 1,000 ML 1000 ML IV (11:05)
[2022-07-12] MEDS: ACETAMINOPHEN 325 MG TABLET 650 MG PO (11:07)
[2022-07-12 11:12] LABS: RBC Urine None Seen (0-5/HPF); WBC Urine 1-5/HPF (0-5/HPF)
[2022-07-12 11:13] LABS: Bacteria Urine Few (2-10); Culture Indicated Urine Cult Not Indicated; Mucus Urine 1+ (Negative); Squamous Epithelial Cell Urine 0-1 /HPF (0-5/HPF)
[2022-07-12 11:17] LABS: Add Manual Diff / Slide Review NO; Basophils Absolute Auto 0 /uL (0-100); Basophils Percent Auto 0.4 % (0-2); Eosinophils Absolute Auto 100 /uL (0-450); Eosinophils Percent Auto 1.7 % (2-4); Hematocrit 35.7 % (36-46); Hemoglobin 11.7 g/dL (12.0-16.0); Lymphocytes Absolute Auto 1400 /uL (1100-4500); Lymphocytes Percent Auto 16.6 % (25-40); Mean Corpuscular HGB Conc 32.9 % (30-36); Mean Corpuscular Volume 82.3 fL (80-100); Monocytes Absolute Auto 700 /uL (0-900); Monocytes Percent Auto 8.4 % (3-14); Neutrophils Absolute Auto 6000 /uL (1500-7000); Neutrophils Percent Auto 72.9 % (50-75); Platelet Count 282 X10^3/uL (150-400); Red Blood Cell Count 4.34 X10^6/uL (4.0-5.2); Red Cell Distribution Width 16.3 % (11.6-14.8); White Blood Cell Count 8.2 X10^3/uL (4.5-11.0)
[2022-07-12 12:16] VITALS: BP 143/67
[2022-07-12 12:29] LABS: Alanine Aminotransferase 13 IU/L (<35); Albumin 4.3 g/dL (3.5-5.0); Albumin Globulin Ratio 1.6 (1.0-2.8); Alkaline Phosphatase 78 U/L (38-126); Aspartate Aminotransferase 23 IU/L (14-36); BUN Creatinine Ratio 12.8 (6-22); Bilirubin Total 0.4 mg/dL (0.2-1.3); Blood Urea Nitrogen 11 mg/dL (7-17); Calcium 9.3 mg/dL (8.4-10.2); Carbon Dioxide 27 mmol/L (22-32); Chloride 100 mmol/L (98-107); Creatine Kinase 51 U/L (30-135); Estimated Glomerular Filt Rate > 60 mL/min (>60); Globulin 2.7 g/dL (1.7-4.1); Glucose 104 mg/dL (80-110); HEMOLYSIS < 15 (0-50); Lipase 56 U/L (23-300); Potassium 4.1 mmol/L (3.4-5.1); Sodium 137 mmol/L (137-145)
[2022-07-12 12:30] VITALS: BP 130/72; PULSE 79; O2SAT 96
[2022-07-12 12:40] LABS: Troponin I < 0.012 ng/mL (0.01-0.034)
[2022-07-12 13:00] VITALS: BP 142/74; PULSE 87; O2SAT 97
== END 2022-07-12 13:12 | disposition home or self-care (01) ==
PROVIDERS: Emergency Provider Emergency Medicine; PCP Physician Assistant
DX: R11.10 Vomiting, unspecified (principal)
CPT/HCPCS: 36415; 80053; 81003; 81015; 82550; 83690; 84484; 85025; 87077; 87086; 87186; 96360; 99284